=== PATIENT | male | born 1955 | race Caucasian/White ===

== ENCOUNTER → 2016-12-17 | Outpatient (CLI) | payer MEDICARE, MEDICAID ==
[~2016-12-17] MED LIST: AML5T PO; CARI-277 PO; CARI350T21; CYANOCOBALAMIN (B-12) 1000 MCG/1 ML VIAL IM ONE; CYANOCOBALAMIN (B-12) 1000 MCG/1 ML VIAL ONE; DOCU-55; FINA1TAB10 OR; FURO20TA3 PO; GAB300C PO; GABA800T97; INSUINJ37 SUBCUT; LEVEMIR SC; LIS10T PO; LISI10TA6; MAGN250T8; MYCO500T PO; NOR10T PO; NORVASC; OME20GT; OMEP20CA5 PO; POTA12PO2; PROGRAF; SULF400T11; TAMS0.4C36 PO; TEMA15CA PO; ZOLP10TA6
[2016-12-17 09:00] VITALS: BP 127/80
== END | disposition home or self-care (01) ==
LOC: CHF HDHVI 08:44
PROVIDERS: ATTEND Internal Medicine Cardiovascular Disease
DX: I11.0 Hypertensive heart disease with heart failure (principal); E11.9 Type 2 diabetes mellitus without complications; D64.9 Anemia, unspecified; Z94.1 Heart transplant status
CPT/HCPCS: 93701; 96372; G0463; J3420

== ENCOUNTER → 2016-12-20 | Outpatient (CLI) | payer MEDICARE, MEDICAID ==
[~2016-12-20] MED LIST changes: -CYANOCOBALAMIN (B-12) 1000 MCG/1 ML VIAL IM ONE; -CYANOCOBALAMIN (B-12) 1000 MCG/1 ML VIAL ONE
[2016-12-20 13:00] VITALS: BP 126/85
[2016-12-20 15:56] LABS: Basophils # (auto) 0 uL; Basophils % (auto) 0.3 % (0.0-2.0); DEFINITIVE VIEW TRANSMISSION; Eosinophils # (auto) 0.1 uL; Eosinophils % (auto) 1.6 % (0.0-7.0); Hematocrit 37.3 % (41.0-53.0); Hemoglobin 11.9 g/dL (13.5-17.5); Lymphocytes # (auto) 1.1 uL; Mean Corpuscular Hgb Conc. 31.9 g/dL (32.0-36.0); Mean Corpuscular Volume 84.5 fL (80.0-100.0); Mean Platelet Volume 8.7 fL (7.4-10.4); Monocytes # (auto) 0.4 uL; Monocytes % (auto) 6.6 % (0.0-12.0); Neutrophils % (auto) 75.5 % (37.0-80.0); Platelet Count (auto) 311 10^3/uL (140-450); Red Cell Distribution Width 13.4 % (11.6-16.0); White Blood Cell 6.6 10^3/uL (4.4-10.8)
[2016-12-20 16:15] LABS: BUN/Creatinine Ratio 16.7; Calcium 9.5 mg/dL (8.5-10.1); Magnesium 2.2 mg/dL (1.6-2.6); Potassium 4.1 mmol/L (3.5-5.1)
== END | disposition home or self-care (01) ==
LOC: CHF HDHVI 12:06
PROVIDERS: ATTEND Internal Medicine Cardiovascular Disease
DX: I10 Essential (primary) hypertension (principal); E83.40 Disorders of magnesium metabolism, unspecified; D64.9 Anemia, unspecified
CPT/HCPCS: 36415; 80048; 83735; 85025; G0463

== ENCOUNTER → 2017-01-09 | Outpatient (CLI) | payer MEDICARE, MEDICAID ==
[~2017-01-09] MED LIST changes: +CYANOCOBALAMIN (B-12) 1000 MCG/1 ML VIAL IM ONE; +CYANOCOBALAMIN (B-12) 1000 MCG/1 ML VIAL ONE; +FUROSEMIDE 100 MG/10ML VIAL IV ONE; +FUROSEMIDE 40 MG/4 ML VIAL ONE; +POTASSIUM CHL 20 Meq TABLET PO ONE
[2017-01-09 12:00] VITALS: BP 148/88
[2017-01-09 12:31] VITALS: BP 124/82
[2017-01-09 16:31] LABS: Basophils # (auto) 0 uL; Basophils % (auto) 0.5 % (0.0-2.0); DEFINITIVE VIEW TRANSMISSION; Eosinophils # (auto) 0.2 uL; Eosinophils % (auto) 2.9 % (0.0-7.0); Hematocrit 38.8 % (41.0-53.0); Hemoglobin 11.7 g/dL (13.5-17.5); Lymphocytes # (auto) 1.3 uL; Lymphocytes % (auto) 20.6 % (10.0-50.0); Mean Corpuscular Hgb Conc. 30.1 g/dL (32.0-36.0); Mean Corpuscular Volume 86.3 fL (80.0-100.0); Mean Platelet Volume 9.1 fL (7.4-10.4); Monocytes # (auto) 0.5 uL; Monocytes % (auto) 8.2 % (0.0-12.0); Neutrophils # (auto) 4.3 uL; Neutrophils % (auto) 67.8 % (37.0-80.0); Platelet Count (auto) 209 10^3/uL (140-450); Red Cell Distribution Width 14.5 % (11.6-16.0); White Blood Cell 6.3 10^3/uL (4.4-10.8)
[2017-01-09 16:42] LABS: Calcium 9.3 mg/dL (8.5-10.1); Magnesium 2.1 mg/dL (1.6-2.6); Potassium 3.9 mmol/L (3.5-5.1)
[2017-01-09 23:01] LABS: Anisocytosis Slight; Platelet Estimate Adequate
[2017-01-09 23:02] LABS: Hypochromia Slight
[2017-01-09 23:03] LABS: Stomatocytes Few
== END | disposition home or self-care (01) ==
LOC: CHF HDHVI 11:58
PROVIDERS: ATTEND Internal Medicine Cardiovascular Disease
DX: I10 Essential (primary) hypertension (principal); E83.40 Disorders of magnesium metabolism, unspecified; D64.9 Anemia, unspecified
CPT/HCPCS: 36415; 80048; 83735; 85025; 94620; 96365; 96372; G0463

== ENCOUNTER → 2017-01-20 | Outpatient (CLI) | payer MEDICARE, MEDICAID ==
[~2017-01-20] MED LIST changes: -FUROSEMIDE 100 MG/10ML VIAL IV ONE; -FUROSEMIDE 40 MG/4 ML VIAL ONE; -POTASSIUM CHL 20 Meq TABLET PO ONE
[2017-01-20 10:15] VITALS: BP 108/77
== END | disposition home or self-care (01) ==
LOC: CHF HDHVI 09:52
PROVIDERS: ATTEND Internal Medicine Cardiovascular Disease
DX: I11.0 Hypertensive heart disease with heart failure (principal); I51.7 Cardiomegaly; J90 Pleural effusion, not elsewhere classified; E11.9 Type 2 diabetes mellitus without complications; K44.9 Diaphragmatic hernia without obstruction or gangrene; M47.9 Spondylosis, unspecified; I70.0 Atherosclerosis of aorta; M54.5 Low back pain; Z94.1 Heart transplant status; D64.9 Anemia, unspecified
CPT/HCPCS: 71250; 96372; G0463; J3420

== ENCOUNTER → 2017-01-27 | Outpatient (CLI) | payer MEDICARE, MEDICAID ==
[~2017-01-27] MED LIST changes: -CYANOCOBALAMIN (B-12) 1000 MCG/1 ML VIAL IM ONE; -CYANOCOBALAMIN (B-12) 1000 MCG/1 ML VIAL ONE
[2017-01-27 13:35] VITALS: BP 121/76
[2017-01-27 14:00] VITALS: BP 123/88
== END | disposition home or self-care (01) ==
LOC: Rad HDHVI 13:36
PROVIDERS: ATTEND Internal Medicine Cardiovascular Disease
DX: Z01.818 Encounter for other preprocedural examination (principal); I11.0 Hypertensive heart disease with heart failure; I50.9 Heart failure, unspecified; I25.10 Atherosclerotic heart disease of native coronary artery without angina pectoris; K22.2 Esophageal obstruction; J90 Pleural effusion, not elsewhere classified; Z95.1 Presence of aortocoronary bypass graft; R91.8 Other nonspecific abnormal finding of lung field
CPT/HCPCS: 71020; 93005; G0463

== ENCOUNTER → 2017-02-13 | Outpatient (CLI) | payer MEDICARE, MEDICAID ==
[~2017-02-13] MED LIST changes: +CYANOCOBALAMIN (B-12) 1000 MCG/1 ML VIAL IM ONE; +CYANOCOBALAMIN (B-12) 1000 MCG/1 ML VIAL ONE
[2017-02-13 13:25] VITALS: BP 140/81
== END | disposition home or self-care (01) ==
LOC: CHF HDHVI 11:51
PROVIDERS: ATTEND Internal Medicine Cardiovascular Disease
DX: I11.0 Hypertensive heart disease with heart failure (principal); I50.9 Heart failure, unspecified; I25.10 Atherosclerotic heart disease of native coronary artery without angina pectoris; J90 Pleural effusion, not elsewhere classified; E78.5 Hyperlipidemia, unspecified; D64.9 Anemia, unspecified
CPT/HCPCS: 93701; 96372; G0463; J3420

== ENCOUNTER → 2017-02-19 | Outpatient (CLI) | payer MEDICARE, MEDICAID ==
[2017-02-19 12:20] VITALS: BP 121/77
[2017-02-19 13:00] VITALS: BP 113/68
[2017-02-19 16:37] LABS: Basophils # (auto) 0 uL; Basophils % (auto) 0.2 % (0.0-2.0); Eosinophils # (auto) 0.1 uL; Eosinophils % (auto) 0.8 % (0.0-7.0); Hematocrit 36.9 % (41.0-53.0); Hemoglobin 11.9 g/dL (13.5-17.5); Lymphocytes # (auto) 0.9 uL; Lymphocytes % (auto) 13.1 % (10.0-50.0); Mean Corpuscular Hemoglobin 27.6 pg (28.0-32.0); Mean Corpuscular Hgb Conc. 32.3 g/dL (32.0-36.0); Mean Corpuscular Volume 85.5 fL (80.0-100.0); Mean Platelet Volume 9.6 fL (7.4-10.4); Monocytes # (auto) 0.3 uL; Neutrophils # (auto) 5.5 uL; Neutrophils % (auto) 80.9 % (37.0-80.0); Platelet Count (auto) 297 10^3/uL (140-450); Red Cell Distribution Width 14.6 % (11.6-16.0); White Blood Cell 6.9 10^3/uL (4.4-10.8)
[2017-02-19 17:00] LABS: Potassium 3.8 mmol/L (3.5-5.1)
== END | disposition home or self-care (01) ==
LOC: CHF HDHVI 12:23
PROVIDERS: ATTEND Internal Medicine Cardiovascular Disease
DX: I10 Essential (primary) hypertension (principal); I50.9 Heart failure, unspecified; D64.9 Anemia, unspecified; R94.4 Abnormal results of kidney function studies; E11.9 Type 2 diabetes mellitus without complications
CPT/HCPCS: 36415; 82565; 83036; 84132; 84520; 85025; 96372; G0463

== ENCOUNTER → 2017-03-21 | Outpatient (CLI) | payer MEDICARE, MEDICAID ==
[2017-03-21 13:00] VITALS: BP 110/74
[2017-03-21 16:49] LABS: Basophils # (auto) 0 uL; Basophils % (auto) 0.4 % (0.0-2.0); Eosinophils # (auto) 0.2 uL; Eosinophils % (auto) 2.4 % (0.0-7.0); Hematocrit 37.8 % (41.0-53.0); Hemoglobin 12.1 g/dL (13.5-17.5); Lymphocytes # (auto) 1.2 uL; Lymphocytes % (auto) 16.7 % (10.0-50.0); Mean Corpuscular Hemoglobin 27.5 pg (28.0-32.0); Mean Platelet Volume 9.8 fL (7.4-10.4); Monocytes # (auto) 0.4 uL; Monocytes % (auto) 6.3 % (0.0-12.0); Neutrophils # (auto) 5.2 uL; Neutrophils % (auto) 74.2 % (37.0-80.0); Platelet Count (auto) 244 10^3/uL (140-450); Red Cell Distribution Width 14.5 % (11.6-16.0)
[2017-03-21 17:13] LABS: Albumin 3.4 g/dL (3.4-5.0); BUN/Creatinine Ratio 12.3; Bilirubin, Total 0.3 mg/dL (0.2-1.0); Calcium 9.5 mg/dL (8.5-10.1); Potassium 3.9 mmol/L (3.5-5.1); Total Protein 6.6 g/dL (6.4-8.2)
== END | disposition home or self-care (01) ==
LOC: CHF HDHVI 12:59
PROVIDERS: ATTEND Internal Medicine Cardiovascular Disease
DX: D64.9 Anemia, unspecified (principal); I10 Essential (primary) hypertension; E11.9 Type 2 diabetes mellitus without complications
CPT/HCPCS: 36415; 80053; 83036; 85025; 96372; G0463

== ENCOUNTER → 2017-04-02 | Outpatient (CLI) | payer MEDICARE, MEDICAID ==
[2017-04-02 14:30] VITALS: BP 114/81
[2017-04-02 16:38] LABS: BUN/Creatinine Ratio 12.1; Basophils # (auto) 0 uL; Basophils % (auto) 0.3 % (0.0-2.0); Calcium 9.7 mg/dL (8.5-10.1); Eosinophils # (auto) 0.1 uL; Eosinophils % (auto) 1.1 % (0.0-7.0); Hematocrit 36.9 % (41.0-53.0); Hemoglobin 11.9 g/dL (13.5-17.5); Lymphocytes % (auto) 15.8 % (10.0-50.0); Magnesium 2.4 mg/dL (1.6-2.6); Mean Corpuscular Hemoglobin 27.4 pg (28.0-32.0); Mean Corpuscular Hgb Conc. 32.3 g/dL (32.0-36.0); Mean Platelet Volume 9.6 fL (7.4-10.4); Monocytes # (auto) 0.4 uL; Monocytes % (auto) 5.5 % (0.0-12.0); Neutrophils % (auto) 77.3 % (37.0-80.0); Platelet Count (auto) 234 10^3/uL (140-450); Potassium 4.1 mmol/L (3.5-5.1); Red Cell Distribution Width 13.7 % (11.6-16.0); White Blood Cell 6.5 10^3/uL (4.4-10.8)
== END | disposition home or self-care (01) ==
LOC: CHF HDHVI 13:09
PROVIDERS: ATTEND Internal Medicine Cardiovascular Disease
DX: I10 Essential (primary) hypertension (principal); D64.9 Anemia, unspecified; E83.42 Hypomagnesemia
CPT/HCPCS: 36415; 80048; 83735; 85025; 93701; 96372; G0463

== ENCOUNTER → 2017-04-15 | Outpatient (CLI) | payer MEDICARE, MEDICAID ==
[~2017-04-15] MED LIST changes: -CYANOCOBALAMIN (B-12) 1000 MCG/1 ML VIAL IM ONE; -CYANOCOBALAMIN (B-12) 1000 MCG/1 ML VIAL ONE
== END | disposition home or self-care (01) ==
LOC: Rad HDHVI 14:56
PROVIDERS: ATTEND Internal Medicine Cardiovascular Disease
DX: I11.0 Hypertensive heart disease with heart failure (principal); I50.9 Heart failure, unspecified; I42.0 Dilated cardiomyopathy; J90 Pleural effusion, not elsewhere classified; E78.5 Hyperlipidemia, unspecified; M79.601 Pain in right arm; R91.8 Other nonspecific abnormal finding of lung field
CPT/HCPCS: 71020; 93306

== ENCOUNTER → 2017-04-22 | Outpatient (CLI) | payer MEDICARE, MEDICAID ==
[~2017-04-22] MED LIST changes: +CYANOCOBALAMIN (B-12) 1000 MCG/1 ML VIAL IM ONE; +CYANOCOBALAMIN (B-12) 1000 MCG/1 ML VIAL ONE; +KETOROLAC TROMETH 60MG/2ML VIAL IM ONE
[2017-04-22 11:15] VITALS: BP 109/72
[2017-04-22 12:15] VITALS: BP 107/73
[2017-04-22 16:32] LABS: Basophils # (auto) 0 uL; Basophils % (auto) 0.2 % (0.0-2.0); Eosinophils # (auto) 0.1 uL; Eosinophils % (auto) 1.1 % (0.0-7.0); Hematocrit 37.7 % (41.0-53.0); Hemoglobin 12.4 g/dL (13.5-17.5); Lymphocytes % (auto) 13.1 % (10.0-50.0); Mean Corpuscular Hemoglobin 28.3 pg (28.0-32.0); Mean Corpuscular Volume 85.8 fL (80.0-100.0); Mean Platelet Volume 9.2 fL (7.4-10.4); Monocytes # (auto) 0.6 uL; Monocytes % (auto) 8.1 % (0.0-12.0); Neutrophils # (auto) 5.9 uL; Neutrophils % (auto) 77.5 % (37.0-80.0); Platelet Count (auto) 239 10^3/uL (140-450); Red Cell Distribution Width 14.3 % (11.6-16.0); White Blood Cell 7.6 10^3/uL (4.4-10.8)
[2017-04-22 17:28] LABS: Potassium 4.2 mmol/L (3.5-5.1)
== END | disposition home or self-care (01) ==
LOC: CHF HDHVI 11:25
PROVIDERS: ATTEND Internal Medicine Cardiovascular Disease
DX: R94.4 Abnormal results of kidney function studies (principal); E87.6 Hypokalemia; D64.9 Anemia, unspecified
CPT/HCPCS: 36415; 82565; 84132; 84520; 85025; 93701; 96372; G0463; J1885

== ENCOUNTER → 2017-05-01 | Outpatient (CLI) | payer MEDICARE, MEDICAID ==
[~2017-05-01] MED LIST changes: +CARI-316; -CARI350T21; -GAB300C PO; +GABA-497 PO; -KETOROLAC TROMETH 60MG/2ML VIAL IM ONE; -OMEP20CA5 PO; +OMEP20CA74 PO
[2017-05-01 14:40] VITALS: BP 109/67
== END | disposition home or self-care (01) ==
LOC: CHF HDHVI 13:23
PROVIDERS: ATTEND Internal Medicine Cardiovascular Disease
DX: I50.9 Heart failure, unspecified (principal); D64.9 Anemia, unspecified; J44.9 Chronic obstructive pulmonary disease, unspecified; E11.9 Type 2 diabetes mellitus without complications; Z79.899 Other long term (current) drug therapy
CPT/HCPCS: 93701; 94620; 96372; G0463; J3420

== ENCOUNTER → 2017-05-07 | Outpatient (CLI) | payer MEDICARE, MEDICAID ==
[2017-05-07 14:15] VITALS: BP 107/83
[2017-05-07 14:35] VITALS: BP 115/86
== END | disposition home or self-care (01) ==
LOC: CHF HDHVI 14:21
PROVIDERS: ATTEND Internal Medicine Cardiovascular Disease
DX: I50.9 Heart failure, unspecified (principal); I48.91 Unspecified atrial fibrillation; R53.83 Other fatigue; Z95.810 Presence of automatic (implantable) cardiac defibrillator; Z94.1 Heart transplant status
CPT/HCPCS: 96372; G0463; J3420

== ENCOUNTER → 2017-05-13 | Outpatient (CLI) | payer MEDICARE, MEDICAID ==
[~2017-05-13] MED LIST changes: +ADENOSINE 90 MG/30 ML INJ IV ONE; +ADENOSINE 99 MG in GIVE UN-DILUTED 0 ML IV ONE; -CYANOCOBALAMIN (B-12) 1000 MCG/1 ML VIAL IM ONE; -CYANOCOBALAMIN (B-12) 1000 MCG/1 ML VIAL ONE
== END | disposition home or self-care (01) ==
LOC: Rad HDHVI 13:38
PROVIDERS: ATTEND Internal Medicine Cardiovascular Disease
DX: I10 Essential (primary) hypertension (principal); I48.91 Unspecified atrial fibrillation; E78.5 Hyperlipidemia, unspecified; E11.9 Type 2 diabetes mellitus without complications; Z82.49 Family history of ischemic heart disease and other diseases of the circulatory system; Z94.1 Heart transplant status; Z95.1 Presence of aortocoronary bypass graft
CPT/HCPCS: 78452; 93005; 96374; 96375; A9500; J0153

== ENCOUNTER → 2017-05-19 | Outpatient (CLI) | payer MEDICARE, MEDICAID ==
[~2017-05-19] MED LIST changes: -ADENOSINE 90 MG/30 ML INJ IV ONE; -ADENOSINE 99 MG in GIVE UN-DILUTED 0 ML IV ONE
== END | disposition home or self-care (01) ==
LOC: Rad HDHVI 14:54
PROVIDERS: ATTEND Internal Medicine Cardiovascular Disease
DX: M48.02 Spinal stenosis, cervical region (principal); M47.892 Other spondylosis, cervical region
CPT/HCPCS: 72125

== ENCOUNTER → 2017-05-23 | Outpatient (CLI) | payer MEDICARE, MEDICAID ==
[~2017-05-23] MED LIST changes: +ALBU2TAB4 IN; +CALCTAB25 PO; +CARV6.25 PO; +CHOL1TAB42 PO; +CYANOCOBALAMIN (B-12) 1000 MCG/1 ML VIAL IM ONE; +CYANOCOBALAMIN (B-12) 1000 MCG/1 ML VIAL ONE; +FERR325T77 PO; -FINA1TAB10 OR; +FINA1TAB10 PO; +FLUT250M2 INH; +GABA250S2 PO; +INSLISPI SC; +INSU1.2I SC; +LOPE2CAP PO; +LORA-622 PO; -MAGN250T8; +MAGN250T8 PO; +MULTCAP45 PO; -OME20GT; +OME20GT PO; -POTA12PO2; +POTA12PO2 PO; +PRE5T PO; +TACR1CAP19 PO; +TACR5CAP15 PO; +TRIA0.25 PO
[2017-05-23 12:00] VITALS: BP 98/63
[2017-05-23 12:30] VITALS: BP 109/65
== END | disposition home or self-care (01) ==
LOC: CHF HDHVI 12:00
PROVIDERS: ATTEND Internal Medicine Cardiovascular Disease
DX: I50.9 Heart failure, unspecified (principal); R53.83 Other fatigue; E87.70 Fluid overload, unspecified
CPT/HCPCS: 96372; G0463; J3420

== ENCOUNTER 2017-06-02 02:59 | Inpatient (IN) | payer MEDICARE, MEDICAID ==
[~2017-06-02] VITALS: Ht 175.3 cm; Wt 119.5 kg
[~2017-06-02 02:59] MED LIST changes: -ALBU2TAB4 IN; -CALCTAB25 PO; -CARV6.25 PO; -CHOL1TAB42 PO; -CYANOCOBALAMIN (B-12) 1000 MCG/1 ML VIAL IM ONE; -CYANOCOBALAMIN (B-12) 1000 MCG/1 ML VIAL ONE; -FERR325T77 PO; -FLUT250M2 INH; -GABA250S2 PO; -INSLISPI SC; -INSU1.2I SC; -LOPE2CAP PO; -LORA-622 PO; -MULTCAP45 PO; -PRE5T PO; -TACR1CAP19 PO; -TACR5CAP15 PO; -TRIA0.25 PO
[2017-06-02] MEDS ORDERED: HYDROmorphone HCL 2 MG/ML VL IV ONE ×3 (03:30→10:30)
[2017-06-02] MEDS ORDERED: ONDANSETRON HCL 4 MG/2 ML VIAL IV ONE ×2 (03:30→10:30)
[2017-06-02 03:36] LABS: Basophils # (auto) 0 uL; Basophils % (auto) 0.1 % (0.0-2.0); CONDITION Y; Eosinophils # (auto) 0.1 uL; Eosinophils % (auto) 0.7 % (0.0-7.0); Hematocrit 36.6 % (41.0-53.0); Hemoglobin 12.1 g/dL (13.5-17.5); Lymphocytes % (auto) 9.6 % (10.0-50.0); Mean Corpuscular Hemoglobin 27.6 pg (28.0-32.0); Mean Corpuscular Hgb Conc. 33.2 g/dL (32.0-36.0); Mean Corpuscular Volume 83.3 fL (80.0-100.0); Mean Platelet Volume 8.4 fL (7.4-10.4); Monocytes # (auto) 0.7 uL; Neutrophils # (auto) 8.5 uL; Neutrophils % (auto) 82.6 % (37.0-80.0); Platelet Count (auto) 229 10^3/uL (140-450); Red Cell Distribution Width 13.6 % (11.6-16.0); White Blood Cell 10.2 10^3/uL (4.4-10.8)
[2017-06-02 03:55] LABS: Albumin 3.7 g/dL (3.4-5.0); BUN/Creatinine Ratio 24.2; Calcium 9.4 mg/dL (8.5-10.1); Potassium 4.9 mmol/L (3.5-5.1)
[2017-06-02 03:57] LABS: Bilirubin, Total 0.2 mg/dL (0.2-1.0)
[2017-06-02 05:06] LABS: Amylase 107 U/L (25-115); Magnesium 2.7 mg/dL (1.6-2.6)
[2017-06-02 05:11] LABS: INR 0.98 (0.9-1.15); Partial Thromboplastin Time 27.1 sec (22.64-33.71); Prothrombin Time 10.7 sec (9.37-12.3)
[2017-06-02] MEDS ORDERED: PANTOPRAZOLE SODIUM 40 MG/10 ML VIAL IV ONE ×2 (08:15→14:30)
[2017-06-02 08:46] LABS: Urine Bilirubin Negative (Negative); Urine Blood Negative /uL (Negative); Urine Color Yellow (Yellow); Urine Glucose Normal (Normal); Urine Ketone Negative (Negative); Urine Mucus FEW (None Seen); Urine Nitrite Negative (Negative); Urine RBC <1 /hpf (0 - 3); Urine Squamous Epithelial Cell FEW /hpf (<5); Urine Urobilinogen Normal (Negative)
[2017-06-02 09:02] LABS: B-Type Natriuretic Peptide 35.74 pg/mL (0-100)
[2017-06-02 09:06] LABS: Temperature: 24.1 C (20.0-25.0)
[2017-06-02] MEDS ORDERED: ENOXAPARIN SOD 100 MG/1 ML SYRINGE SC ONE (09:15)
[2017-06-02] MEDS ORDERED: NITROGLYCERIN 0.4 MG SL TAB SL PRN (14:30)
[2017-06-02] MEDS ORDERED: DEXTROSE (50%) 50ML SYRG IV PRN (14:30)
[2017-06-02] MEDS: SODIUM CHLORIDE 0.9% 1,000 ML IV SCH (14:30)
[2017-06-02] MEDS ORDERED: predniSONE 5 MG TAB PO ONE (15:00)
[2017-06-02] MEDS: CARVEDILOL 3.125 MG TAB PO SCH ×2 (15:00→22:22)
[2017-06-02] MEDS: TAMSULOSIN HYDROCHLORIDE 0.4 MG CAP PO SCH (18:16)
[2017-06-02] MEDS: ACCU-CHEK COMFORT CURVE STRIP VI SCH (18:16)
[2017-06-02] MEDS: TACROLIMUS 1 MG CAP PO SCH (18:16)
[2017-06-02] MEDS: InsuLIN REG 1unit/0.01ml Soln (100units/ml) SC SCH (18:21)
[2017-06-02] MEDS: MORPHINE SULF INJ 2 MG/ML SYRINGE 1ML IV PRN ×4 (20:35→23:51)
[2017-06-02] MEDS: MYCOPHENOLATE 500 MG TAB PO SCH (22:18)
[2017-06-02] MEDS: GABAPENTIN 100 MG CAP PO SCH (22:22)
[2017-06-03] VITALS (7 sets, daily range): BP systolic 122–140; BP diastolic 76–95
[2017-06-03] MEDS: InsuLIN REG 1unit/0.01ml Soln (100units/ml) SC SCH ×4 (01:01→18:27)
[2017-06-03] MEDS: ACCU-CHEK COMFORT CURVE STRIP VI SCH ×5 (01:01→23:54)
[2017-06-03] MEDS: MORPHINE SULF INJ 2 MG/ML SYRINGE 1ML IV PRN ×6 (01:03→23:57)
[2017-06-03] MEDS ORDERED: TEMAZEPAM 15 MG CAP PO ONE (01:15)
[2017-06-03] MEDS: SODIUM CHLORIDE 0.9% 1,000 ML IV SCH ×2 (04:00→17:33)
[2017-06-03] MEDS ORDERED: GABA250S2 PO (04:34)
[2017-06-03] MEDS ORDERED: TRIA0.25 PO (04:42)
[2017-06-03] MEDS ORDERED: ALBU2TAB4 IN (04:45)
[2017-06-03] MEDS ORDERED: CALCTAB25 PO (04:46)
[2017-06-03] MEDS ORDERED: CHOL1TAB42 PO (04:49)
[2017-06-03] MEDS ORDERED: CARV6.25 PO (04:51)
[2017-06-03] MEDS ORDERED: FERR325T77 PO (04:53)
[2017-06-03] MEDS ORDERED: INSLISPI SC (04:55)
[2017-06-03] MEDS ORDERED: FLUT250M2 INH (04:55)
[2017-06-03] MEDS ORDERED: LOPE2CAP PO (04:57)
[2017-06-03] MEDS ORDERED: LORA-622 PO (04:58)
[2017-06-03] MEDS ORDERED: MULTCAP45 PO (04:58)
[2017-06-03] MEDS ORDERED: PRE5T PO (04:59)
[2017-06-03] MEDS ORDERED: TACR1CAP19 PO (05:02)
[2017-06-03] MEDS ORDERED: TACR5CAP15 PO (05:02)
[2017-06-03] MEDS ORDERED: INSU1.2I SC (05:03)
[2017-06-03] MEDS: TACROLIMUS 1 MG CAP PO SCH ×2 (06:12→18:36)
[2017-06-03 06:43] LABS: Basophils # (auto) 0 uL; Basophils % (auto) 0.1 % (0.0-2.0); CONDITION Y; Eosinophils # (auto) 0 uL; Eosinophils % (auto) 0.3 % (0.0-7.0); Hemoglobin 12.1 g/dL (13.5-17.5); Lymphocytes # (auto) 0.9 uL; Lymphocytes % (auto) 16.4 % (10.0-50.0); Mean Corpuscular Hgb Conc. 34.4 g/dL (32.0-36.0); Mean Corpuscular Volume 84.1 fL (80.0-100.0); Mean Platelet Volume 8.8 fL (7.4-10.4); Monocytes # (auto) 0.8 uL; Monocytes % (auto) 14.9 % (0.0-12.0); Neutrophils # (auto) 3.7 uL; Neutrophils % (auto) 68.3 % (37.0-80.0); Platelet Count (auto) 188 10^3/uL (140-450); Red Cell Distribution Width 13.6 % (11.6-16.0); White Blood Cell 5.5 10^3/uL (4.4-10.8)
[2017-06-03 07:11] LABS: Albumin 3.3 g/dL (3.4-5.0); Bilirubin, Total 0.4 mg/dL (0.2-1.0); Calcium 9.5 mg/dL (8.5-10.1); Potassium 5.1 mmol/L (3.5-5.1); Total Protein 6.5 g/dL (6.4-8.2)
[2017-06-03] MEDS: PANTOPRAZOLE SODIUM 40 MG/10 ML VIAL IV SCH (09:55)
[2017-06-03] MEDS: FINASTERIDE 5 MG TAB PO SCH (09:55)
[2017-06-03] MEDS: GABAPENTIN 100 MG CAP PO SCH (09:55)
[2017-06-03] MEDS: predniSONE 5 MG TAB PO SCH (09:56)
[2017-06-03] MEDS: CARVEDILOL 3.125 MG TAB PO SCH ×2 (09:56→21:57)
[2017-06-03] MEDS: MYCOPHENOLATE 500 MG TAB PO SCH ×2 (10:13→21:55)
[2017-06-03 14:51] LABS: B-Type Natriuretic Peptide 38.2 pg/mL (0-100)
[2017-06-03 15:01] LABS: Temperature: 23.3 C (20.0-25.0)
[2017-06-03 15:21] LABS: BUN/Creatinine Ratio 26.9; Calcium 9.2 mg/dL (8.5-10.1); Potassium 5.4 mmol/L (3.5-5.1)
[2017-06-03] MEDS: TAMSULOSIN HYDROCHLORIDE 0.4 MG CAP PO SCH (18:36)
[2017-06-03] MEDS ORDERED: FUROSEMIDE 40 MG/4 ML VIAL IV ONE (19:00)
[2017-06-04] VITALS (7 sets, daily range): BP systolic 124–146; BP diastolic 78–97
[2017-06-04] MEDS: SODIUM CHLORIDE 0.9% 1,000 ML IV SCH (05:22)
[2017-06-04] MEDS: MORPHINE SULF INJ 2 MG/ML SYRINGE 1ML IV PRN ×5 (05:23→20:07)
[2017-06-04] MEDS: TACROLIMUS 1 MG CAP PO SCH ×2 (06:11→17:35)
[2017-06-04] MEDS: ACCU-CHEK COMFORT CURVE STRIP VI SCH ×4 (06:11→23:40)
[2017-06-04] MEDS: InsuLIN REG 1unit/0.01ml Soln (100units/ml) SC SCH ×5 (06:12→23:41)
[2017-06-04 07:56] LABS: BUN/Creatinine Ratio 27.1; Calcium 9.1 mg/dL (8.5-10.1); Potassium 4.9 mmol/L (3.5-5.1)
[2017-06-04 08:25] LABS: Basophils # (auto) 0 uL; Basophils % (auto) 0.1 % (0.0-2.0); CONDITION Y; Eosinophils # (auto) 0.1 uL; Hematocrit 31.1 % (41.0-53.0); Hemoglobin 10.2 g/dL (13.5-17.5); Lymphocytes # (auto) 1.1 uL; Lymphocytes % (auto) 21.6 % (10.0-50.0); Mean Corpuscular Hemoglobin 27.7 pg (28.0-32.0); Mean Corpuscular Hgb Conc. 32.8 g/dL (32.0-36.0); Mean Corpuscular Volume 84.4 fL (80.0-100.0); Mean Platelet Volume 8.9 fL (7.4-10.4); Monocytes # (auto) 0.6 uL; Monocytes % (auto) 11.9 % (0.0-12.0); Neutrophils # (auto) 3.5 uL; Neutrophils % (auto) 65.4 % (37.0-80.0); Platelet Count (auto) 182 10^3/uL (140-450); Red Cell Distribution Width 13.8 % (11.6-16.0); White Blood Cell 5.3 10^3/uL (4.4-10.8)
[2017-06-04] MEDS: predniSONE 5 MG TAB PO SCH (09:28)
[2017-06-04] MEDS: FINASTERIDE 5 MG TAB PO SCH (09:28)
[2017-06-04] MEDS: PANTOPRAZOLE SODIUM 40 MG/10 ML VIAL IV SCH (09:28)
[2017-06-04] MEDS: CARVEDILOL 3.125 MG TAB PO SCH ×2 (09:31→22:42)
[2017-06-04] MEDS: MYCOPHENOLATE 500 MG TAB PO SCH ×2 (09:40→22:41)
[2017-06-04] MEDS: TAMSULOSIN HYDROCHLORIDE 0.4 MG CAP PO SCH (17:35)
[2017-06-04] MEDS ORDERED: EPOETIN ALFA 4,000 UNIT/ML VL SC ONE (19:00)
[2017-06-04] MEDS ORDERED: HYDROcodone-ACET 10/325MG TAB PO PRN (19:00)
[2017-06-04] MEDS: ONDANSETRON HCL 4 MG/2 ML VIAL IV PRN (20:08)
[2017-06-04] MEDS: HYDROcodone-ACET 5/325MG TAB PO PRN (22:41)
[2017-06-05] MEDS: MORPHINE SULF INJ 2 MG/ML SYRINGE 1ML IV PRN ×6 (00:24→20:10)
[2017-06-05] MEDS: SODIUM CHLORIDE 0.9% 1,000 ML IV SCH ×3 (00:30→21:55)
[2017-06-05 05:00] VITALS: BP 139/97
[2017-06-05 06:07] LABS: Basophils # (auto) 0 uL; Basophils % (auto) 0.2 % (0.0-2.0); CONDITION Y; Eosinophils # (auto) 0.1 uL; Eosinophils % (auto) 1.8 % (0.0-7.0); Hematocrit 32.6 % (41.0-53.0); Hemoglobin 10.9 g/dL (13.5-17.5); Lymphocytes # (auto) 1.3 uL; Mean Corpuscular Hemoglobin 28.6 pg (28.0-32.0); Mean Corpuscular Hgb Conc. 33.5 g/dL (32.0-36.0); Mean Corpuscular Volume 85.3 fL (80.0-100.0); Mean Platelet Volume 8.4 fL (7.4-10.4); Monocytes # (auto) 0.7 uL; Monocytes % (auto) 10.3 % (0.0-12.0); Neutrophils # (auto) 4.4 uL; Neutrophils % (auto) 67.7 % (37.0-80.0); Platelet Count (auto) 204 10^3/uL (140-450); Red Cell Distribution Width 13.6 % (11.6-16.0); White Blood Cell 6.5 10^3/uL (4.4-10.8)
[2017-06-05] MEDS: ACCU-CHEK COMFORT CURVE STRIP VI SCH ×4 (06:13→23:27)
[2017-06-05] MEDS: InsuLIN REG 1unit/0.01ml Soln (100units/ml) SC SCH ×4 (06:13→23:27)
[2017-06-05] MEDS: TACROLIMUS 1 MG CAP PO SCH ×2 (06:26→17:04)
[2017-06-05 06:31] LABS: BUN/Creatinine Ratio 21.9; Calcium 9.7 mg/dL (8.5-10.1); Potassium 4.9 mmol/L (3.5-5.1)
[2017-06-05 08:00] VITALS: BP 124/77
[2017-06-05] MEDS: predniSONE 5 MG TAB PO SCH (10:24)
[2017-06-05] MEDS: FINASTERIDE 5 MG TAB PO SCH (10:24)
[2017-06-05] MEDS: CARVEDILOL 3.125 MG TAB PO SCH ×2 (10:24→21:54)
[2017-06-05] MEDS: MYCOPHENOLATE 500 MG TAB PO SCH ×2 (10:24→21:53)
[2017-06-05] MEDS: PANTOPRAZOLE SODIUM 40 MG/10 ML VIAL IV SCH (10:24)
[2017-06-05 14:47] VITALS: BP 142/96
[2017-06-05] MEDS: TAMSULOSIN HYDROCHLORIDE 0.4 MG CAP PO SCH (17:04)
[2017-06-05 20:00] VITALS: BP 139/96
[2017-06-05] MEDS: ONDANSETRON HCL 4 MG/2 ML VIAL IV PRN (21:52)
[2017-06-05 22:00] VITALS: BP 139/96
[2017-06-06] MEDS: MORPHINE SULF INJ 2 MG/ML SYRINGE 1ML IV PRN ×2 (02:21→09:49)
[2017-06-06 05:00] VITALS: BP 121/103
[2017-06-06] MEDS: HYDROcodone-ACET 5/325MG TAB PO PRN (05:28)
[2017-06-06] MEDS: InsuLIN REG 1unit/0.01ml Soln (100units/ml) SC SCH ×2 (06:00→12:11)
[2017-06-06] MEDS: ACCU-CHEK COMFORT CURVE STRIP VI SCH ×2 (06:13→11:47)
[2017-06-06] MEDS: TACROLIMUS 1 MG CAP PO SCH (06:39)
[2017-06-06] MEDS: SODIUM CHLORIDE 0.9% 1,000 ML IV SCH (06:41)
[2017-06-06 08:00] VITALS: BP 121/103
[2017-06-06 09:00] VITALS: BP 130/69
[2017-06-06] MEDS: MYCOPHENOLATE 500 MG TAB PO SCH (09:48)
[2017-06-06] MEDS: CARVEDILOL 3.125 MG TAB PO SCH (09:48)
[2017-06-06] MEDS: predniSONE 5 MG TAB PO SCH (09:48)
[2017-06-06] MEDS: FINASTERIDE 5 MG TAB PO SCH (09:49)
[2017-06-06] MEDS: PANTOPRAZOLE SODIUM 40 MG/10 ML VIAL IV SCH (09:49)
[2017-06-06 12:52] VITALS: BP 125/78
[2017-06-07] MEDS ORDERED: PANTOPRAZOLE 40 MG TAB PO SCH (10:00)
== END 2017-06-06 13:35 | disposition home or self-care (01) | DRG 871 ==
LOC: ER 02:59 → EDBD 02:59 → TELE 03:00 → TELE-WESTW 23:45
PROVIDERS: ADMIT Internal Medicine; ATTEND Internal Medicine Cardiovascular Disease
DX: A41.9 Sepsis, unspecified organism (principal); K85.90 Acute pancreatitis without necrosis or infection, unspecified; G93.41 Metabolic encephalopathy; N17.9 Acute kidney failure, unspecified; Z94.1 Heart transplant status; E87.4 Mixed disorder of acid-base balance; D64.9 Anemia, unspecified; I12.9 Hypertensive chronic kidney disease with stage 1 through stage 4 chronic kidney disease, or unspecified chronic kidney disease; N18.3 Chronic kidney disease, stage 3 (moderate); N40.0 Benign prostatic hyperplasia without lower urinary tract symptoms; E11.22 Type 2 diabetes mellitus with diabetic chronic kidney disease; E86.1 Hypovolemia; F03.90 Unspecified dementia, unspecified severity, without behavioral disturbance, psychotic disturbance, mood disturbance, and anxiety; J44.9 Chronic obstructive pulmonary disease, unspecified; K44.9 Diaphragmatic hernia without obstruction or gangrene; K57.30 Diverticulosis of large intestine without perforation or abscess without bleeding; K80.20 Calculus of gallbladder without cholecystitis without obstruction; D89.9 Disorder involving the immune mechanism, unspecified; K86.89 Other specified diseases of pancreas; W18.39XA Other fall on same level, initial encounter; G89.29 Other chronic pain; E11.65 Type 2 diabetes mellitus with hyperglycemia; R29.6 Repeated falls; Z77.090 Contact with and (suspected) exposure to asbestos; Z82.49 Family history of ischemic heart disease and other diseases of the circulatory system; Z83.3 Family history of diabetes mellitus; Z99.81 Dependence on supplemental oxygen; Z88.6 Allergy status to analgesic agent; Z88.5 Allergy status to narcotic agent; Z88.0 Allergy status to penicillin; Z88.8 Allergy status to other drugs, medicaments and biological substances; Y93.89 Activity, other specified; Y92.89 Other specified places as the place of occurrence of the external cause; Y99.8 Other external cause status
CPT/HCPCS: 36415; 51702; 70450; 71020; 73090; 73110; 74176; 76700; 78582; 80048; 80053; 80197; 81001; 82150; 82962; 83036; 83605; 83690; 83735; 83880; 84484; 85025; 85379; 85610; 85730; 93005; 93970; 96372; 96374; 96375; 96376; 99291; C9113; J1815; J2405; J7507; J7517

== ENCOUNTER → 2017-06-20 | Outpatient (CLI) | payer MEDICARE, MEDICAID ==
[~2017-06-20] MED LIST changes: +ALBU2TAB4 IN; +CALCTAB25 PO; +CARV6.25 PO; +CHOL1TAB42 PO; +CYANOCOBALAMIN (B-12) 1000 MCG/1 ML VIAL IM ONE; +CYANOCOBALAMIN (B-12) 1000 MCG/1 ML VIAL ONE; +FERR325T77 PO; +FLUT250M2 INH; -GABA-497 PO; +GABA250S2 PO; -GABA800T97; +INSLISPI SC; +INSU1.2I SC; -INSUINJ37 SUBCUT; -LEVEMIR SC; -LISI10TA6; +LOPE2CAP PO; +LORA-622 PO; +MULTCAP45 PO; -OMEP20CA74 PO; +PRE5T PO; +TACR1CAP19 PO; +TACR5CAP15 PO; -TEMA15CA PO; +TRIA0.25 PO
[2017-06-20 13:45] VITALS: BP 95/47
[2017-06-20 15:00] VITALS: BP 100/50
[2017-06-20 16:19] LABS: Basophils # (auto) 0 uL; Basophils % (auto) 0.3 % (0.0-2.0); CONDITION Y; Eosinophils # (auto) 0 uL; Eosinophils % (auto) 0.2 % (0.0-7.0); Hemoglobin 11.4 g/dL (13.5-17.5); Lymphocytes # (auto) 1.3 uL; Lymphocytes % (auto) 16.2 % (10.0-50.0); Mean Corpuscular Hemoglobin 27.7 pg (28.0-32.0); Mean Corpuscular Hgb Conc. 32.5 g/dL (32.0-36.0); Mean Corpuscular Volume 85.2 fL (80.0-100.0); Mean Platelet Volume 9.2 fL (7.4-10.4); Monocytes # (auto) 0.5 uL; Monocytes % (auto) 6.8 % (0.0-12.0); Neutrophils % (auto) 76.5 % (37.0-80.0); Platelet Count (auto) 396 10^3/uL (140-450); Red Cell Distribution Width 13.5 % (11.6-16.0); White Blood Cell 7.9 10^3/uL (4.4-10.8)
[2017-06-20 16:32] LABS: BUN/Creatinine Ratio 12.6; Calcium 9.4 mg/dL (8.5-10.1); Potassium 5.3 mmol/L (3.5-5.1)
== END | disposition home or self-care (01) ==
LOC: CHF HDHVI 13:42
PROVIDERS: ATTEND Internal Medicine Cardiovascular Disease
DX: I11.0 Hypertensive heart disease with heart failure (principal); I50.9 Heart failure, unspecified; D64.9 Anemia, unspecified; I48.91 Unspecified atrial fibrillation; E11.9 Type 2 diabetes mellitus without complications; R53.83 Other fatigue; Z94.1 Heart transplant status
CPT/HCPCS: 36415; 80048; 85025; 96372; G0463; J3420

== ENCOUNTER → 2017-06-27 | Outpatient (CLI) | payer MEDICARE, MEDICAID ==
[~2017-06-27] MED LIST changes: -CYANOCOBALAMIN (B-12) 1000 MCG/1 ML VIAL IM ONE; -CYANOCOBALAMIN (B-12) 1000 MCG/1 ML VIAL ONE
[2017-06-27 10:30] VITALS: BP 133/83
[2017-06-27 11:45] VITALS: BP 116/87
== END | disposition home or self-care (01) ==
LOC: CHF HDHVI 11:04
PROVIDERS: ATTEND Internal Medicine Cardiovascular Disease
DX: I11.0 Hypertensive heart disease with heart failure (principal); I50.9 Heart failure, unspecified; G89.29 Other chronic pain
CPT/HCPCS: G0463

== ENCOUNTER → 2017-08-06 | Outpatient (CLI) | payer MEDICARE, MEDICAID ==
[~2017-08-06] MED LIST changes: +MUPIROCIN 2% OINT 22GM ONE; +MUPIROCIN 2% OINT 22GM TOP ONE
[2017-08-06 09:35] VITALS: BP 114/83
[2017-08-06 09:38] VITALS: BP 114/83
== END | disposition home or self-care (01) ==
LOC: CHF HDHVI 09:14
PROVIDERS: ATTEND Internal Medicine Cardiovascular Disease
DX: I50.9 Heart failure, unspecified (principal); G89.29 Other chronic pain
CPT/HCPCS: G0463

== ENCOUNTER → 2017-08-21 | Outpatient (CLI) | payer MEDICARE, MEDICAID ==
[~2017-08-21] MED LIST changes: +CYANOCOBALAMIN (B-12) 1000 MCG/1 ML VIAL IM ONE; +CYANOCOBALAMIN (B-12) 1000 MCG/1 ML VIAL ONE; -MUPIROCIN 2% OINT 22GM ONE; -MUPIROCIN 2% OINT 22GM TOP ONE
[2017-08-21 12:00] VITALS: BP 150/107
[2017-08-21 13:00] VITALS: BP 141/96
[2017-08-21 16:01] LABS: Basophils # (auto) 0 uL; Basophils % (auto) 0.2 % (0.0-2.0); Eosinophils # (auto) 0 uL; Eosinophils % (auto) 0.7 % (0.0-7.0); Hematocrit 41.6 % (41.0-53.0); Hemoglobin 13.4 g/dL (13.5-17.5); Lymphocytes # (auto) 0.9 uL; Lymphocytes % (auto) 17.2 % (10.0-50.0); Mean Corpuscular Hemoglobin 27.4 pg (28.0-32.0); Mean Corpuscular Hgb Conc. 32.1 g/dL (32.0-36.0); Mean Corpuscular Volume 85.2 fL (80.0-100.0); Monocytes # (auto) 0.3 uL; Monocytes % (auto) 5.6 % (0.0-12.0); Neutrophils # (auto) 4.1 uL; Neutrophils % (auto) 76.3 % (37.0-80.0); Nucleated Red Blood Cells % 0.2 %; Platelet Count (auto) 186 10^3/uL (140-450); Red Cell Distribution Width 15.2 % (11.8-14.3); White Blood Cell 5.4 10^3/uL (4.4-10.8)
[2017-08-21 16:22] LABS: BUN/Creatinine Ratio 13.9; Calcium 9.6 mg/dL (8.5-10.1); Magnesium 2.7 mg/dL (1.6-2.6); Potassium 4.4 mmol/L (3.5-5.1)
== END | disposition home or self-care (01) ==
LOC: CHF HDHVI 11:49
PROVIDERS: ATTEND Internal Medicine Cardiovascular Disease
DX: I10 Essential (primary) hypertension (principal); E11.9 Type 2 diabetes mellitus without complications; E83.42 Hypomagnesemia; D51.9 Vitamin B12 deficiency anemia, unspecified; D64.9 Anemia, unspecified; I25.10 Atherosclerotic heart disease of native coronary artery without angina pectoris
CPT/HCPCS: 36415; 80048; 82607; 83036; 83735; 85025; 96372; G0463; J3420

== ENCOUNTER → 2017-09-08 | Outpatient (CLI) | payer MEDICARE, MEDICAID ==
[~2017-09-08] MED LIST changes: +MUPIROCIN 2% OINT 22GM ONE; +MUPIROCIN 2% OINT 22GM TOP ONE
[2017-09-08 10:45] VITALS: BP 95/61
[2017-09-08 12:10] VITALS: BP 101/61
[2017-09-08 17:11] LABS: Potassium 4.4 mmol/L (3.5-5.1)
[2017-09-08 17:12] LABS: Basophils # (auto) 0 uL; Basophils % (auto) 0.2 % (0.0-2.0); Eosinophils # (auto) 0.1 uL; Eosinophils % (auto) 0.7 % (0.0-7.0); Hematocrit 40.1 % (41.0-53.0); Lymphocytes # (auto) 1.2 uL; Lymphocytes % (auto) 15.4 % (10.0-50.0); Mean Corpuscular Hemoglobin 27.3 pg (28.0-32.0); Mean Corpuscular Hgb Conc. 32.3 g/dL (32.0-36.0); Mean Corpuscular Volume 84.5 fL (80.0-100.0); Mean Platelet Volume 9.1 fL (6.9-10.8); Monocytes # (auto) 0.5 uL; Monocytes % (auto) 6.7 % (0.0-12.0); Neutrophils # (auto) 5.8 uL; Nucleated Red Blood Cells % 0.1 %; Platelet Count (auto) 169 10^3/uL (140-450); Red Cell Distribution Width 14.7 % (11.8-14.3); White Blood Cell 7.5 10^3/uL (4.4-10.8)
== END | disposition home or self-care (01) ==
LOC: CHF HDHVI 10:09
PROVIDERS: ATTEND Internal Medicine Cardiovascular Disease
DX: I25.10 Atherosclerotic heart disease of native coronary artery without angina pectoris (principal); E87.6 Hypokalemia; R94.4 Abnormal results of kidney function studies; D64.9 Anemia, unspecified; G89.29 Other chronic pain; R53.83 Other fatigue; Z94.1 Heart transplant status
CPT/HCPCS: 36415; 82565; 84132; 84520; 85025; 93701; 96372; G0463; J3420

== ENCOUNTER → 2017-09-19 | Outpatient (CLI) | payer MEDICARE, MEDICAID ==
[~2017-09-19] VITALS: Ht 30.5 cm; Wt 114.8 kg
[~2017-09-19] MED LIST changes: -MUPIROCIN 2% OINT 22GM ONE; -MUPIROCIN 2% OINT 22GM TOP ONE
[2017-09-19 12:31] VITALS: BP 121/80
== END | disposition home or self-care (01) ==
LOC: CHF HDHVI 11:42
PROVIDERS: ATTEND Internal Medicine Cardiovascular Disease
DX: E87.6 Hypokalemia (principal); R94.4 Abnormal results of kidney function studies; E55.9 Vitamin D deficiency, unspecified
CPT/HCPCS: 36415; 82306; 82565; 84132; 84520; 96372; G0463; J3420

== ENCOUNTER → 2017-10-22 | Outpatient (CLI) | payer MEDICARE, MEDICAID ==
[~2017-10-22] VITALS: Ht 30.5 cm; Wt 0.5 kg
[~2017-10-22] MED LIST changes: -CYANOCOBALAMIN (B-12) 1000 MCG/1 ML VIAL IM ONE; +CYANOCOBALAMIN (B-12) 1000 MCG/1 ML VIAL SUBCUT ONE
[2017-10-22 12:00] VITALS: BP 139/91
[2017-10-22 13:15] VITALS: BP 124/78
[2017-10-22 16:05] LABS: Basophils # (auto) 0 uL; Basophils % (auto) 0.3 % (0.0-2.0); Eosinophils # (auto) 0.1 uL; Eosinophils % (auto) 1.1 % (0.0-7.0); Hematocrit 40.1 % (41.0-53.0); Lymphocytes % (auto) 13.5 % (10.0-50.0); Mean Corpuscular Hemoglobin 27.2 pg (28.0-32.0); Mean Corpuscular Hgb Conc. 32.4 g/dL (32.0-36.0); Mean Corpuscular Volume 83.9 fL (80.0-100.0); Mean Platelet Volume 9.1 fL (6.9-10.8); Monocytes # (auto) 0.5 uL; Monocytes % (auto) 7.1 % (0.0-12.0); Neutrophils # (auto) 5.7 uL; Nucleated Red Blood Cells % 0.1 %; Platelet Count (auto) 176 10^3/uL (140-450); Red Cell Distribution Width 14.9 % (11.8-14.3); White Blood Cell 7.3 10^3/uL (4.4-10.8)
[2017-10-22 16:12] LABS: BUN/Creatinine Ratio 15.5; Calcium 9.8 mg/dL (8.5-10.1)
== END | disposition home or self-care (01) ==
LOC: CHF HDHVI 12:07
PROVIDERS: ATTEND Internal Medicine Cardiovascular Disease
DX: D64.9 Anemia, unspecified (principal); Z94.1 Heart transplant status; R53.83 Other fatigue; G89.29 Other chronic pain
CPT/HCPCS: 36415; 80048; 80197; 85025; 96372; G0463; J3420

== ENCOUNTER 2017-11-25 01:14 | Inpatient (IN) | payer MEDICARE, MEDICAID ==
[~2017-11-25] VITALS: Ht 193 cm; Wt 82.0 kg
[~2017-11-25 01:14] MED LIST changes: -CYANOCOBALAMIN (B-12) 1000 MCG/1 ML VIAL ONE; -CYANOCOBALAMIN (B-12) 1000 MCG/1 ML VIAL SUBCUT ONE
[2017-11-25 02:23] LABS: Basophils # (auto) 0 uL; Basophils % (auto) 0.4 % (0.0-2.0); Eosinophils # (auto) 0 uL; Eosinophils % (auto) 0.6 % (0.0-7.0); Hematocrit 39.8 % (41.0-53.0); Hemoglobin 13.1 g/dL (13.5-17.5); Lymphocytes # (auto) 0.5 uL; Lymphocytes % (auto) 7.8 % (10.0-50.0); Mean Corpuscular Hemoglobin 27.1 pg (28.0-32.0); Mean Corpuscular Hgb Conc. 32.8 g/dL (32.0-36.0); Mean Corpuscular Volume 82.5 fL (80.0-100.0); Monocytes # (auto) 0.5 uL; Monocytes % (auto) 7.7 % (0.0-12.0); Neutrophils # (auto) 5.8 uL; Neutrophils % (auto) 83.5 % (37.0-80.0); Nucleated Red Blood Cells % 0.1 %; Platelet Count (auto) 169 10^3/uL (140-450); Red Blood Cells 4.82 10^6/uL (4.5-5.90); Red Cell Distribution Width 14.6 % (11.8-14.3)
[2017-11-25] MEDS ORDERED: methylPREDNISolone SOD SUCC 125 MG/2 ML VL IV ONE (02:30)
[2017-11-25 02:34] LABS: Alanine Aminotransferase 13 U/L (16-61); Albumin 3.5 g/dL (3.4-5.0); Amylase 44 U/L (25-115); Anion Gap 8 (5-15); Aspartate Aminotransferase 11 U/L (15-37); BUN/Creatinine Ratio 16.1; Blood Urea Nitrogen 26 mg/dL (7-18); Calcium 8.5 mg/dL (8.5-10.1); Carbon Dioxide 32 mmol/L (21-32); Chloride 99 mmol/L (98-107); GFR African American 56 mL/min; GFR Non-African American 46 mL/min; Glucose 139 mg/dL (74-106); Lipase 147 U/L (73-393); Magnesium 1.5 mg/dL (1.6-2.6); Potassium 3.1 mmol/L (3.5-5.1); Sodium 139 mmol/L (136-145)
[2017-11-25 02:46] LABS: Alkaline Phosphatase 69 U/L (45-117); Bilirubin, Total 0.3 mg/dL (0.2-1.0); Total Protein 6.7 g/dL (6.4-8.2)
[2017-11-25] MEDS ORDERED: POTASSIUM CHL 20 Meq TABLET PO ONE (03:00)
[2017-11-25] MEDS ORDERED: ALBUTEROL SULF 2.5 MG/0.5ML(0.5%) NEB SOLN NEB ONE (03:30)
[2017-11-25] MEDS ORDERED: FUROSEMIDE 20 MG/2 ML VIAL IV ONE (03:30)
[2017-11-25] MEDS ORDERED: IPRATROPIUM BROM 0.5 MG/2.5ML INH SOL NEB ONE (03:30)
[2017-11-25 03:42] LABS: Urine WBC None Seen /hpf (0 - 3)
[2017-11-25 04:08] LABS: Urine Bacteria NONE SEEN /hpf (None Seen); Urine Blood Negative /uL (Negative); Urine Hyaline Cast FEW /lpf (0 - 2); Urine Specific Gravity 1.015 (1.001-1.035)
[2017-11-25] MEDS ORDERED: MORPHINE SULFATE 4 MG/ML SYR/VIAL IV PRN (11:15)
[2017-11-25] MEDS ORDERED: NITROGLYCERIN 0.4 MG SL TAB SL PRN (11:15)
[2017-11-25] MEDS ORDERED: LORATADINE 10 MG TAB PO ONE (11:30)
[2017-11-25] MEDS ORDERED: predniSONE 5 MG TAB PO ONE (11:30)
[2017-11-25] MEDS ORDERED: MAGNESIUM OXIDE 400 MG TAB PO ONE (11:30)
[2017-11-25] MEDS ORDERED: ENOXAPARIN SOD 40 MG/0.4 ML SYRINGE SC ONE (11:30)
[2017-11-25] MEDS ORDERED: PANTOPRAZOLE 40 MG/10 ML VIAL IV ONE (11:30)
[2017-11-25] MEDS ORDERED: CARVEDILOL 3.125 MG TAB PO ONE (11:30)
[2017-11-25] MEDS ORDERED: FINASTERIDE 5 MG TAB PO ONE (11:30)
[2017-11-25] MEDS ORDERED: HYDROXYCHLOROQUINE SULFATE 200 MG TAB PO ONE (11:30)
[2017-11-25] MEDS ORDERED: HCTZ 25 MG TAB PO ONE (11:30)
[2017-11-25] MEDS ORDERED: FLUCONAZOLE 100 MG TAB PO ONE (11:30)
[2017-11-25] MEDS ORDERED: MAGNESIUM SULFATE 1GM/100ML 100 ML IV ONE (11:30)
[2017-11-25] MEDS ORDERED: ENOXAPARIN SOD 100 MG/1 ML SYRINGE SC ONE (11:45)
[2017-11-25] MEDS: ALBUTEROL SULF 2.5 MG/0.5ML(0.5%) NEB SOLN NEB SCH ×3 (12:57→22:10)
[2017-11-25] MEDS: BUDESONIDE (INHALATION) 0.5 MG/2 ML NEB NEB SCH (18:20)
[2017-11-25] MEDS: FERROUS SULFATE 325 MG TAB PO SCH (18:24)
[2017-11-25] MEDS: TAMSULOSIN HYDROCHLORIDE 0.4 MG CAP PO SCH (18:24)
[2017-11-25] MEDS: PREGABALIN CAPSULE 75 MG CAP PO SCH (22:02)
[2017-11-25] MEDS: MAGNESIUM OXIDE 400 MG TAB PO SCH (22:02)
[2017-11-25] MEDS: ENOXAPARIN SOD 100 MG/1 ML SYRINGE SC SCH (22:02)
[2017-11-25] MEDS: HYDROcodone-ACET 5/325MG TAB PO PRN (22:02)
[2017-11-25] MEDS: TACROLIMUS 1 MG CAP PO SCH (22:02)
[2017-11-25] MEDS: CARVEDILOL 3.125 MG TAB PO SCH (22:03)
[2017-11-25] MEDS: CARISOPRODOL 350 MG TAB PO SCH (22:03)
[2017-11-25] MEDS: MYCOPHENOLATE 500 MG TAB PO SCH (22:03)
[2017-11-25 23:46] VITALS: BP 119/87
[2017-11-26] MEDS: ALBUTEROL SULF 2.5 MG/0.5ML(0.5%) NEB SOLN NEB SCH ×6 (02:25→22:43)
[2017-11-26 05:37] LABS: Basophils # (auto) 0 uL; Basophils % (auto) 0.1 % (0.0-2.0); Eosinophils # (auto) 0 uL; Hematocrit 36.9 % (41.0-53.0); Hemoglobin 12.2 g/dL (13.5-17.5); Lymphocytes # (auto) 0.7 uL; Mean Corpuscular Hemoglobin 27.3 pg (28.0-32.0); Mean Corpuscular Hgb Conc. 33.1 g/dL (32.0-36.0); Mean Corpuscular Volume 82.3 fL (80.0-100.0); Monocytes # (auto) 0.8 uL; Monocytes % (auto) 12.5 % (0.0-12.0); Neutrophils # (auto) 4.6 uL; Neutrophils % (auto) 76.4 % (37.0-80.0); Platelet Count (auto) 145 10^3/uL (140-450); Red Blood Cells 4.49 10^6/uL (4.5-5.90); Red Cell Distribution Width 14.8 % (11.8-14.3); White Blood Cell 6.1 10^3/uL (4.4-10.8)
[2017-11-26 06:01] LABS: Albumin 3.2 g/dL (3.4-5.0); BUN/Creatinine Ratio 21.1; Calcium 9.1 mg/dL (8.5-10.1); Potassium 3.6 mmol/L (3.5-5.1)
[2017-11-26 06:12] LABS: Bilirubin, Total 0.2 mg/dL (0.2-1.0); Total Protein 6.2 g/dL (6.4-8.2)
[2017-11-26] MEDS: FERROUS SULFATE 325 MG TAB PO SCH ×2 (08:33→17:09)
[2017-11-26] MEDS ORDERED: MAGNESIUM OXIDE 400 MG TAB PO SCH (10:00)
[2017-11-26] MEDS ORDERED: ENOXAPARIN SOD 40 MG/0.4 ML SYRINGE SC SCH (10:00)
[2017-11-26] MEDS: BUDESONIDE (INHALATION) 0.5 MG/2 ML NEB NEB SCH ×2 (10:05→19:18)
[2017-11-26] MEDS: PANTOPRAZOLE 40 MG/10 ML VIAL IV SCH (10:57)
[2017-11-26] MEDS: LORATADINE 10 MG TAB PO SCH (10:57)
[2017-11-26] MEDS: CARVEDILOL 3.125 MG TAB PO SCH ×2 (10:57→15:19)
[2017-11-26] MEDS: predniSONE 5 MG TAB PO SCH (10:57)
[2017-11-26] MEDS: HCTZ 25 MG TAB PO SCH (10:58)
[2017-11-26] MEDS: HYDROXYCHLOROQUINE SULFATE 200 MG TAB PO SCH (10:58)
[2017-11-26] MEDS: FLUCONAZOLE 100 MG TAB PO SCH (10:58)
[2017-11-26] MEDS: PREGABALIN CAPSULE 75 MG CAP PO SCH ×2 (10:58→21:13)
[2017-11-26] MEDS: MAGNESIUM OXIDE 400 MG TAB PO SCH ×2 (10:58→21:13)
[2017-11-26] MEDS: FINASTERIDE 5 MG TAB PO SCH (10:59)
[2017-11-26] MEDS: ENOXAPARIN SOD 100 MG/1 ML SYRINGE SC SCH (10:59)
[2017-11-26] MEDS: CARISOPRODOL 350 MG TAB PO SCH ×2 (10:59→21:13)
[2017-11-26] MEDS: MYCOPHENOLATE 500 MG TAB PO SCH ×2 (11:17→21:12)
[2017-11-26] MEDS: TACROLIMUS 1 MG CAP PO SCH ×2 (11:18→21:12)
[2017-11-26] MEDS ORDERED: ENOXAPARIN SOD 40 MG/0.4 ML SYRINGE SC ONE (15:15)
[2017-11-26] MEDS ORDERED: TEMA15CA PO (16:27)
[2017-11-26] MEDS ORDERED: PREG50CA PO (16:27)
[2017-11-26 16:31] VITALS: BP 113/80
[2017-11-26 17:00] VITALS: BP 113/80
[2017-11-26] MEDS: TAMSULOSIN HYDROCHLORIDE 0.4 MG CAP PO SCH (17:09)
[2017-11-26 22:00] VITALS: BP 119/75
[2017-11-26] MEDS: HYDROcodone-ACET 5/325MG TAB PO PRN (23:20)
[2017-11-27] VITALS (7 sets, daily range): BP systolic 95–124; BP diastolic 52–83
[2017-11-27] MEDS: CARVEDILOL 3.125 MG TAB PO SCH ×2 (00:06→21:35)
[2017-11-27] MEDS: ALBUTEROL SULF 2.5 MG/0.5ML(0.5%) NEB SOLN NEB SCH ×6 (02:40→21:28)
[2017-11-27] MEDS: BUDESONIDE (INHALATION) 0.5 MG/2 ML NEB NEB SCH ×2 (05:53→17:15)
[2017-11-27 07:42] LABS: Basophils # (auto) 0 uL; Basophils % (auto) 0.2 % (0.0-2.0); Eosinophils # (auto) 0 uL; Eosinophils % (auto) 0.3 % (0.0-7.0); Hematocrit 36.3 % (41.0-53.0); Hemoglobin 11.8 g/dL (13.5-17.5); Lymphocytes % (auto) 22.1 % (10.0-50.0); Mean Corpuscular Hgb Conc. 32.6 g/dL (32.0-36.0); Mean Corpuscular Volume 82.9 fL (80.0-100.0); Monocytes # (auto) 0.4 uL; Monocytes % (auto) 9.4 % (0.0-12.0); Nucleated Red Blood Cells % 0.1 %; Platelet Count (auto) 127 10^3/uL (140-450); Red Blood Cells 4.37 10^6/uL (4.5-5.90); Red Cell Distribution Width 14.6 % (11.8-14.3); White Blood Cell 4.4 10^3/uL (4.4-10.8)
[2017-11-27 08:34] LABS: BUN/Creatinine Ratio 20.7; Calcium 8.5 mg/dL (8.5-10.1); Magnesium 1.9 mg/dL (1.6-2.6); Potassium 3.4 mmol/L (3.5-5.1)
[2017-11-27] MEDS: PANTOPRAZOLE 40 MG/10 ML VIAL IV SCH (09:39)
[2017-11-27] MEDS: FERROUS SULFATE 325 MG TAB PO SCH ×2 (09:39→18:02)
[2017-11-27] MEDS: FLUCONAZOLE 100 MG TAB PO SCH (09:40)
[2017-11-27] MEDS: MYCOPHENOLATE 500 MG TAB PO SCH ×2 (09:40→21:24)
[2017-11-27] MEDS: LORATADINE 10 MG TAB PO SCH (09:40)
[2017-11-27] MEDS: PREGABALIN CAPSULE 75 MG CAP PO SCH ×2 (09:41→21:23)
[2017-11-27] MEDS: MAGNESIUM OXIDE 400 MG TAB PO SCH ×2 (09:41→21:23)
[2017-11-27] MEDS: predniSONE 5 MG TAB PO SCH (09:41)
[2017-11-27] MEDS: HYDROXYCHLOROQUINE SULFATE 200 MG TAB PO SCH (09:42)
[2017-11-27] MEDS: CARISOPRODOL 350 MG TAB PO SCH ×2 (09:42→21:24)
[2017-11-27] MEDS: ENOXAPARIN SOD 40 MG/0.4 ML SYRINGE SC SCH (09:42)
[2017-11-27] MEDS: FINASTERIDE 5 MG TAB PO SCH (09:42)
[2017-11-27] MEDS: HCTZ 25 MG TAB PO SCH (09:43)
[2017-11-27] MEDS: HYDROcodone-ACET 5/325MG TAB PO PRN ×2 (09:44→18:07)
[2017-11-27] MEDS: TACROLIMUS 1 MG CAP PO SCH ×2 (09:55→21:25)
[2017-11-27] MEDS: TAMSULOSIN HYDROCHLORIDE 0.4 MG CAP PO SCH (18:02)
[2017-11-27] MEDS: ZOLPIDEM TARTRATE 5 MG TAB PO PRN ×2 (21:24→23:56)
[2017-11-28] MEDS: ALBUTEROL SULF 2.5 MG/0.5ML(0.5%) NEB SOLN NEB SCH ×6 (02:31→22:11)
[2017-11-28 05:00] VITALS: BP 112/68
[2017-11-28] MEDS: FERROUS SULFATE 325 MG TAB PO SCH ×2 (08:46→17:59)
[2017-11-28] MEDS: HYDROcodone-ACET 5/325MG TAB PO PRN ×3 (08:47→21:23)
[2017-11-28 09:00] VITALS: BP 95/85
[2017-11-28] MEDS: BUDESONIDE (INHALATION) 0.5 MG/2 ML NEB NEB SCH ×2 (09:33→18:05)
[2017-11-28] MEDS: ENOXAPARIN SOD 40 MG/0.4 ML SYRINGE SC SCH (10:11)
[2017-11-28] MEDS: CARISOPRODOL 350 MG TAB PO SCH ×2 (10:11→21:26)
[2017-11-28] MEDS: PREGABALIN CAPSULE 75 MG CAP PO SCH ×2 (10:11→21:23)
[2017-11-28] MEDS: predniSONE 5 MG TAB PO SCH (10:11)
[2017-11-28] MEDS: FLUCONAZOLE 100 MG TAB PO SCH (10:12)
[2017-11-28] MEDS: LORATADINE 10 MG TAB PO SCH (10:12)
[2017-11-28] MEDS: OSELTAMIVIR 75 MG CAP PO SCH (10:12)
[2017-11-28] MEDS: FINASTERIDE 5 MG TAB PO SCH (10:12)
[2017-11-28] MEDS: MAGNESIUM OXIDE 400 MG TAB PO SCH ×2 (10:12→21:23)
[2017-11-28] MEDS: HYDROXYCHLOROQUINE SULFATE 200 MG TAB PO SCH (10:13)
[2017-11-28] MEDS: PANTOPRAZOLE 40 MG/10 ML VIAL IV SCH (10:14)
[2017-11-28] MEDS: MYCOPHENOLATE 500 MG TAB PO SCH ×2 (10:25→21:24)
[2017-11-28] MEDS: TACROLIMUS 1 MG CAP PO SCH ×2 (10:25→21:25)
[2017-11-28] MEDS: CARVEDILOL 3.125 MG TAB PO SCH ×2 (10:26→21:24)
[2017-11-28] MEDS: HCTZ 25 MG TAB PO SCH (10:27)
[2017-11-28 13:00] VITALS: BP 102/63
[2017-11-28] MEDS ORDERED: POTASSIUM CHL 20 Meq TABLET PO ONE (14:45)
[2017-11-28 17:00] VITALS: BP 115/72
[2017-11-28] MEDS ORDERED: TACR1CAP4 PO (17:06)
[2017-11-28] MEDS ORDERED: LISI2.5T47 PO (17:06)
[2017-11-28] MEDS: TAMSULOSIN HYDROCHLORIDE 0.4 MG CAP PO SCH (18:00)
[2017-11-28 22:00] VITALS: BP 126/86
[2017-11-28] MEDS: ZOLPIDEM TARTRATE 5 MG TAB PO PRN (23:42)
[2017-11-28 23:48] VITALS: BP 126/86
[2017-11-29] MEDS: ALBUTEROL SULF 2.5 MG/0.5ML(0.5%) NEB SOLN NEB SCH ×6 (02:13→22:35)
[2017-11-29 04:53] VITALS: BP 122/86
[2017-11-29] MEDS: HYDROcodone-ACET 5/325MG TAB PO PRN ×2 (08:27→14:18)
[2017-11-29] MEDS: FERROUS SULFATE 325 MG TAB PO SCH ×2 (08:32→18:18)
[2017-11-29 09:00] VITALS: BP 143/98
[2017-11-29] MEDS: ENOXAPARIN SOD 40 MG/0.4 ML SYRINGE SC SCH (10:24)
[2017-11-29] MEDS: PANTOPRAZOLE 40 MG/10 ML VIAL IV SCH (10:24)
[2017-11-29] MEDS: HYDROXYCHLOROQUINE SULFATE 200 MG TAB PO SCH (10:25)
[2017-11-29] MEDS: OSELTAMIVIR 75 MG CAP PO SCH (10:25)
[2017-11-29] MEDS: MAGNESIUM OXIDE 400 MG TAB PO SCH ×2 (10:25→21:58)
[2017-11-29] MEDS: CARISOPRODOL 350 MG TAB PO SCH ×2 (10:25→21:58)
[2017-11-29] MEDS: PREGABALIN CAPSULE 75 MG CAP PO SCH ×2 (10:27→21:58)
[2017-11-29] MEDS: predniSONE 5 MG TAB PO SCH (10:27)
[2017-11-29] MEDS: LORATADINE 10 MG TAB PO SCH (10:27)
[2017-11-29] MEDS: HCTZ 25 MG TAB PO SCH (10:27)
[2017-11-29] MEDS: CARVEDILOL 3.125 MG TAB PO SCH ×2 (10:27→21:58)
[2017-11-29] MEDS: FLUCONAZOLE 100 MG TAB PO SCH (10:28)
[2017-11-29] MEDS: FINASTERIDE 5 MG TAB PO SCH (10:31)
[2017-11-29] MEDS: TACROLIMUS 1 MG CAP PO SCH ×2 (10:31→21:59)
[2017-11-29] MEDS ORDERED: MYCOPHENOLATE 500 MG TAB PO ONE (10:45)
[2017-11-29 12:16] VITALS: BP 127/90
[2017-11-29] MEDS: BUDESONIDE (INHALATION) 0.5 MG/2 ML NEB NEB SCH ×2 (14:02→22:35)
[2017-11-29 17:58] VITALS: BP 127/100
[2017-11-29] MEDS: TAMSULOSIN HYDROCHLORIDE 0.4 MG CAP PO SCH (18:18)
[2017-11-29] MEDS: MYCOPHENOLATE 500 MG TAB PO SCH (21:59)
[2017-11-29] MEDS: ZOLPIDEM TARTRATE 5 MG TAB PO PRN (21:59)
[2017-11-29 22:00] VITALS: BP 140/84
[2017-11-30] MEDS: ALBUTEROL SULF 2.5 MG/0.5ML(0.5%) NEB SOLN NEB SCH ×5 (02:10→23:14)
[2017-11-30 05:00] VITALS: BP 138/71
[2017-11-30] MEDS: FERROUS SULFATE 325 MG TAB PO SCH ×2 (08:11→18:15)
[2017-11-30] MEDS: HYDROcodone-ACET 5/325MG TAB PO PRN ×3 (08:13→18:19)
[2017-11-30 09:00] VITALS: BP 136/82
[2017-11-30] MEDS: PANTOPRAZOLE 40 MG/10 ML VIAL IV SCH (10:23)
[2017-11-30] MEDS: HCTZ 25 MG TAB PO SCH (10:23)
[2017-11-30] MEDS: MAGNESIUM OXIDE 400 MG TAB PO SCH ×2 (10:24→22:00)
[2017-11-30] MEDS: TACROLIMUS 1 MG CAP PO SCH ×2 (10:24→21:59)
[2017-11-30] MEDS: OSELTAMIVIR 75 MG CAP PO SCH (10:24)
[2017-11-30] MEDS: ENOXAPARIN SOD 40 MG/0.4 ML SYRINGE SC SCH (10:24)
[2017-11-30] MEDS: MYCOPHENOLATE 500 MG TAB PO SCH ×2 (10:24→22:00)
[2017-11-30] MEDS: HYDROXYCHLOROQUINE SULFATE 200 MG TAB PO SCH (10:25)
[2017-11-30] MEDS: PREGABALIN CAPSULE 75 MG CAP PO SCH ×2 (10:25→21:59)
[2017-11-30] MEDS: FINASTERIDE 5 MG TAB PO SCH (10:25)
[2017-11-30] MEDS: FLUCONAZOLE 100 MG TAB PO SCH (10:25)
[2017-11-30] MEDS: CARISOPRODOL 350 MG TAB PO SCH ×2 (10:25→21:59)
[2017-11-30] MEDS: LORATADINE 10 MG TAB PO SCH (10:25)
[2017-11-30] MEDS: predniSONE 5 MG TAB PO SCH (10:25)
[2017-11-30] MEDS: CARVEDILOL 3.125 MG TAB PO SCH ×2 (10:26→22:00)
[2017-11-30] MEDS: BUDESONIDE (INHALATION) 0.5 MG/2 ML NEB NEB SCH ×2 (11:46→20:31)
[2017-11-30 13:00] VITALS: BP 133/87
[2017-11-30 17:00] VITALS: BP 116/75
[2017-11-30 17:24] LABS: Basophils # (auto) 0 uL; Basophils % (auto) 0.1 % (0.0-2.0); Eosinophils # (auto) 0 uL; Eosinophils % (auto) 0.4 % (0.0-7.0); Hematocrit 37.7 % (41.0-53.0); Hemoglobin 12.3 g/dL (13.5-17.5); Lymphocytes # (auto) 0.9 uL; Lymphocytes % (auto) 17.1 % (10.0-50.0); Mean Corpuscular Hemoglobin 27.2 pg (28.0-32.0); Mean Corpuscular Hgb Conc. 32.5 g/dL (32.0-36.0); Mean Corpuscular Volume 83.8 fL (80.0-100.0); Monocytes # (auto) 0.4 uL; Monocytes % (auto) 6.6 % (0.0-12.0); Neutrophils # (auto) 4.2 uL; Neutrophils % (auto) 75.8 % (37.0-80.0); Nucleated Red Blood Cells % 0.1 %; Platelet Count (auto) 134 10^3/uL (140-450); Red Cell Distribution Width 14.2 % (11.8-14.3); White Blood Cell 5.5 10^3/uL (4.4-10.8)
[2017-11-30 17:45] LABS: Albumin 3.4 g/dL (3.4-5.0); BUN/Creatinine Ratio 13.2; Bilirubin, Total 0.3 mg/dL (0.2-1.0); Calcium 8.8 mg/dL (8.5-10.1); Potassium 4.5 mmol/L (3.5-5.1); Total Protein 6.2 g/dL (6.4-8.2)
[2017-11-30] MEDS: TAMSULOSIN HYDROCHLORIDE 0.4 MG CAP PO SCH (18:15)
[2017-11-30] MEDS: ONDANSETRON HCL 4 MG/2 ML VIAL IV PRN (21:57)
[2017-11-30 22:26] VITALS: BP 105/70
[2017-11-30] MEDS: ZOLPIDEM TARTRATE 5 MG TAB PO PRN (23:30)
[2017-12-01] VITALS (7 sets, daily range): BP systolic 101–113; BP diastolic 64–77
[2017-12-01] MEDS: ALBUTEROL SULF 2.5 MG/0.5ML(0.5%) NEB SOLN NEB SCH ×6 (02:15→22:33)
[2017-12-01] MEDS: HYDROcodone-ACET 5/325MG TAB PO PRN ×3 (08:42→21:26)
[2017-12-01] MEDS: FERROUS SULFATE 325 MG TAB PO SCH ×2 (08:42→17:56)
[2017-12-01] MEDS: ONDANSETRON HCL 4 MG/2 ML VIAL IV PRN ×3 (08:43→18:43)
[2017-12-01] MEDS: PANTOPRAZOLE 40 MG/10 ML VIAL IV SCH (10:11)
[2017-12-01] MEDS: HCTZ 25 MG TAB PO SCH (10:12)
[2017-12-01] MEDS: PREGABALIN CAPSULE 75 MG CAP PO SCH ×2 (10:12→21:27)
[2017-12-01] MEDS: ENOXAPARIN SOD 40 MG/0.4 ML SYRINGE SC SCH (10:12)
[2017-12-01] MEDS: LORATADINE 10 MG TAB PO SCH (10:13)
[2017-12-01] MEDS: HYDROXYCHLOROQUINE SULFATE 200 MG TAB PO SCH (10:13)
[2017-12-01] MEDS: CARVEDILOL 3.125 MG TAB PO SCH ×2 (10:13→21:28)
[2017-12-01] MEDS: FINASTERIDE 5 MG TAB PO SCH (10:14)
[2017-12-01] MEDS: predniSONE 5 MG TAB PO SCH (10:14)
[2017-12-01] MEDS: CARISOPRODOL 350 MG TAB PO SCH ×2 (10:14→21:27)
[2017-12-01] MEDS: OSELTAMIVIR 75 MG CAP PO SCH (10:14)
[2017-12-01] MEDS: MAGNESIUM OXIDE 400 MG TAB PO SCH ×2 (10:14→21:27)
[2017-12-01] MEDS: MYCOPHENOLATE 500 MG TAB PO SCH ×2 (10:15→21:27)
[2017-12-01] MEDS: BUDESONIDE (INHALATION) 0.5 MG/2 ML NEB NEB SCH ×2 (10:23→22:33)
[2017-12-01] MEDS: TACROLIMUS 1 MG CAP PO SCH ×2 (11:49→21:27)
[2017-12-01] MEDS ORDERED: FUROSEMIDE 20 MG/2 ML VIAL IV ONE (14:15)
[2017-12-01] MEDS: TAMSULOSIN HYDROCHLORIDE 0.4 MG CAP PO SCH (17:56)
[2017-12-01] MEDS: ZOLPIDEM TARTRATE 5 MG TAB PO PRN (23:27)
[2017-12-02] MEDS: ALBUTEROL SULF 2.5 MG/0.5ML(0.5%) NEB SOLN NEB SCH ×7 (02:00→22:35)
[2017-12-02 04:40] VITALS: BP 120/78
[2017-12-02] MEDS: ONDANSETRON HCL 4 MG/2 ML VIAL IV PRN ×2 (08:25→14:46)
[2017-12-02] MEDS: HYDROcodone-ACET 5/325MG TAB PO PRN ×3 (08:25→22:27)
[2017-12-02] MEDS: FERROUS SULFATE 325 MG TAB PO SCH ×2 (08:25→18:12)
[2017-12-02 09:00] VITALS: BP 109/75
[2017-12-02] MEDS: BUDESONIDE (INHALATION) 0.5 MG/2 ML NEB NEB SCH ×3 (09:51→19:36)
[2017-12-02] MEDS: PANTOPRAZOLE 40 MG/10 ML VIAL IV SCH (09:55)
[2017-12-02] MEDS: ENOXAPARIN SOD 40 MG/0.4 ML SYRINGE SC SCH (09:55)
[2017-12-02] MEDS: TACROLIMUS 1 MG CAP PO SCH ×2 (09:55→22:24)
[2017-12-02] MEDS: HYDROXYCHLOROQUINE SULFATE 200 MG TAB PO SCH (09:56)
[2017-12-02] MEDS: MYCOPHENOLATE 500 MG TAB PO SCH ×2 (09:56→22:24)
[2017-12-02] MEDS: PREGABALIN CAPSULE 75 MG CAP PO SCH ×2 (09:56→22:24)
[2017-12-02] MEDS: predniSONE 5 MG TAB PO SCH (09:56)
[2017-12-02] MEDS: OSELTAMIVIR 75 MG CAP PO SCH (09:56)
[2017-12-02] MEDS: FINASTERIDE 5 MG TAB PO SCH (09:57)
[2017-12-02] MEDS: LORATADINE 10 MG TAB PO SCH (09:57)
[2017-12-02] MEDS: CARVEDILOL 3.125 MG TAB PO SCH ×2 (09:57→22:28)
[2017-12-02] MEDS: CARISOPRODOL 350 MG TAB PO SCH ×2 (09:57→22:25)
[2017-12-02] MEDS: MAGNESIUM OXIDE 400 MG TAB PO SCH ×2 (09:58→22:24)
[2017-12-02] MEDS: HCTZ 25 MG TAB PO SCH (09:58)
[2017-12-02 13:00] VITALS: BP 104/68
[2017-12-02 17:00] VITALS: BP 103/70
[2017-12-02] MEDS: TAMSULOSIN HYDROCHLORIDE 0.4 MG CAP PO SCH (18:12)
[2017-12-02] MEDS: ZOLPIDEM TARTRATE 5 MG TAB PO PRN (22:25)
[2017-12-02 22:36] VITALS: BP 104/72
[2017-12-03] MEDS: ALBUTEROL SULF 2.5 MG/0.5ML(0.5%) NEB SOLN NEB SCH ×6 (01:02→22:33)
[2017-12-03 04:20] VITALS: BP 103/75
[2017-12-03] MEDS: BUDESONIDE (INHALATION) 0.5 MG/2 ML NEB NEB SCH ×2 (06:35→22:33)
[2017-12-03] MEDS: HYDROcodone-ACET 5/325MG TAB PO PRN ×2 (07:01→13:36)
[2017-12-03 08:00] VITALS: BP 103/75
[2017-12-03 08:41] VITALS: BP 127/76
[2017-12-03] MEDS: ONDANSETRON HCL 4 MG/2 ML VIAL IV PRN ×3 (09:27→19:50)
[2017-12-03] MEDS: PANTOPRAZOLE 40 MG/10 ML VIAL IV SCH (09:30)
[2017-12-03] MEDS: ENOXAPARIN SOD 40 MG/0.4 ML SYRINGE SC SCH (09:31)
[2017-12-03] MEDS: LORATADINE 10 MG TAB PO SCH (09:31)
[2017-12-03] MEDS: HYDROXYCHLOROQUINE SULFATE 200 MG TAB PO SCH (09:31)
[2017-12-03] MEDS: HCTZ 25 MG TAB PO SCH (09:32)
[2017-12-03] MEDS: PREGABALIN CAPSULE 75 MG CAP PO SCH ×2 (09:32→22:32)
[2017-12-03] MEDS: MAGNESIUM OXIDE 400 MG TAB PO SCH ×2 (09:32→22:32)
[2017-12-03] MEDS: predniSONE 5 MG TAB PO SCH (09:33)
[2017-12-03] MEDS: CARVEDILOL 3.125 MG TAB PO SCH ×3 (09:34→22:32)
[2017-12-03] MEDS: OSELTAMIVIR 75 MG CAP PO SCH (09:34)
[2017-12-03] MEDS: CARISOPRODOL 350 MG TAB PO SCH ×2 (09:34→22:32)
[2017-12-03] MEDS: FERROUS SULFATE 325 MG TAB PO SCH ×2 (09:34→19:09)
[2017-12-03] MEDS: FINASTERIDE 5 MG TAB PO SCH (09:34)
[2017-12-03 11:56] VITALS: BP 107/76
[2017-12-03] MEDS ORDERED: VANCOMYCIN PER PHARMACY 0 MG IV SCH (13:15)
[2017-12-03] MEDS: MYCOPHENOLATE 500 MG TAB PO SCH ×2 (13:37→22:31)
[2017-12-03] MEDS: TACROLIMUS 1 MG CAP PO SCH ×2 (13:38→22:32)
[2017-12-03] MEDS: methylPREDNISolone SOD SUCC 40 MG/ML VL IV SCH ×2 (13:53→22:31)
[2017-12-03 15:22] LABS: BUN/Creatinine Ratio 15.5; Potassium 5.3 mmol/L (3.5-5.1)
[2017-12-03] MEDS: VANCOMYCIN 1GM/250ML 250 ML IV SCH (15:22)
[2017-12-03 15:23] LABS: Albumin 3.4 g/dL (3.4-5.0); Bilirubin, Total 0.2 mg/dL (0.2-1.0); Calcium 8.6 mg/dL (8.5-10.1); Total Protein 6.6 g/dL (6.4-8.2)
[2017-12-03 16:38] VITALS: BP 133/89
[2017-12-03] MEDS: TAMSULOSIN HYDROCHLORIDE 0.4 MG CAP PO SCH (19:09)
[2017-12-03] MEDS: HYDROcodone-ACET 10/325MG TAB PO PRN (19:49)
[2017-12-03 22:02] VITALS: BP 148/96
[2017-12-03] MEDS: MONTELUKAST SODIUM 10 MG TAB PO SCH (22:32)
[2017-12-03] MEDS: ZOLPIDEM TARTRATE 5 MG TAB PO PRN (23:43)
[2017-12-04] MEDS: ALBUTEROL SULF 2.5 MG/0.5ML(0.5%) NEB SOLN NEB SCH ×6 (02:00→22:52)
[2017-12-04] MEDS: VANCOMYCIN 1GM/250ML 250 ML IV SCH ×2 (03:23→15:19)
[2017-12-04 04:25] VITALS: BP 118/71
[2017-12-04] MEDS: methylPREDNISolone SOD SUCC 40 MG/ML VL IV SCH ×3 (05:53→21:48)
[2017-12-04] MEDS: BUDESONIDE (INHALATION) 0.5 MG/2 ML NEB NEB SCH ×2 (06:02→20:05)
[2017-12-04 06:11] LABS: Potassium 4.8 mmol/L (3.5-5.1)
[2017-12-04 06:16] LABS: Albumin 3.2 g/dL (3.4-5.0); BUN/Creatinine Ratio 16.2; Calcium 9.1 mg/dL (8.5-10.1)
[2017-12-04 06:21] LABS: Bilirubin, Total 0.2 mg/dL (0.2-1.0); Total Protein 6.6 g/dL (6.4-8.2)
[2017-12-04 07:47] VITALS: BP 139/91
[2017-12-04 09:00] VITALS: BP 125/88
[2017-12-04] MEDS: MYCOPHENOLATE 500 MG TAB PO SCH ×2 (09:14→21:48)
[2017-12-04] MEDS: TACROLIMUS 1 MG CAP PO SCH ×2 (09:15→21:49)
[2017-12-04] MEDS: ENOXAPARIN SOD 40 MG/0.4 ML SYRINGE SC SCH (09:15)
[2017-12-04] MEDS: PANTOPRAZOLE 40 MG/10 ML VIAL IV SCH (09:15)
[2017-12-04] MEDS: HYDROXYCHLOROQUINE SULFATE 200 MG TAB PO SCH (09:16)
[2017-12-04] MEDS: HYDROcodone-ACET 10/325MG TAB PO PRN ×3 (09:16→21:50)
[2017-12-04] MEDS: CARISOPRODOL 350 MG TAB PO SCH ×2 (09:16→21:49)
[2017-12-04] MEDS: OSELTAMIVIR 75 MG CAP PO SCH (09:18)
[2017-12-04] MEDS: CARVEDILOL 3.125 MG TAB PO SCH ×2 (09:18→21:49)
[2017-12-04] MEDS: MAGNESIUM OXIDE 400 MG TAB PO SCH ×2 (09:19→21:49)
[2017-12-04] MEDS: PREGABALIN CAPSULE 75 MG CAP PO SCH ×2 (09:19→21:49)
[2017-12-04] MEDS: FERROUS SULFATE 325 MG TAB PO SCH ×2 (09:19→18:18)
[2017-12-04] MEDS: LORATADINE 10 MG TAB PO SCH (09:19)
[2017-12-04] MEDS: FINASTERIDE 5 MG TAB PO SCH (09:19)
[2017-12-04] MEDS: ONDANSETRON HCL 4 MG/2 ML VIAL IV PRN ×3 (10:24→19:35)
[2017-12-04 12:57] VITALS: BP 118/81
[2017-12-04] MEDS: HCTZ 25 MG TAB PO SCH (13:36)
[2017-12-04 17:00] VITALS: BP 149/95
[2017-12-04] MEDS: TAMSULOSIN HYDROCHLORIDE 0.4 MG CAP PO SCH (18:18)
[2017-12-04] MEDS: MONTELUKAST SODIUM 10 MG TAB PO SCH (21:49)
[2017-12-04 22:00] VITALS: BP 128/87
[2017-12-05] VITALS (7 sets, daily range): BP systolic 121–151; BP diastolic 71–92
[2017-12-05] MEDS: LACTULOSE 20Gm/30ML SOLN PO PRN ×2 (00:06→18:35)
[2017-12-05] MEDS: ZOLPIDEM TARTRATE 5 MG TAB PO PRN ×2 (00:06→23:34)
[2017-12-05] MEDS: ALBUTEROL SULF 2.5 MG/0.5ML(0.5%) NEB SOLN NEB SCH ×6 (02:00→22:55)
[2017-12-05] MEDS: VANCOMYCIN 1GM/250ML 250 ML IV SCH ×2 (02:48→15:04)
[2017-12-05 02:53] LABS: Basophils # (auto) 0 uL; Basophils % (auto) 0.1 % (0.0-2.0); Eosinophils # (auto) 0 uL; Monocytes # (auto) 0.4 uL; Monocytes % (auto) 2.4 % (0.0-12.0)
[2017-12-05 02:55] LABS: Hematocrit 37.1 % (41.0-53.0); Hemoglobin 11.9 g/dL (13.5-17.5); Lymphocytes # (auto) 0.5 uL; Lymphocytes % (auto) 3.2 % (10.0-50.0); Mean Corpuscular Hemoglobin 26.7 pg (28.0-32.0); Mean Corpuscular Volume 83.5 fL (80.0-100.0); Neutrophils % (auto) 94.3 % (37.0-80.0); Platelet Count (auto) 222 10^3/uL (140-450); Red Blood Cells 4.44 10^6/uL (4.5-5.90); Red Cell Distribution Width 14.3 % (11.8-14.3); White Blood Cell 15.9 10^3/uL (4.4-10.8)
[2017-12-05 03:05] LABS: Albumin 3.1 g/dL (3.4-5.0); BUN/Creatinine Ratio 21.6; Calcium 9.4 mg/dL (8.5-10.1)
[2017-12-05 03:08] LABS: Bilirubin, Total 0.2 mg/dL (0.2-1.0); Total Protein 5.9 g/dL (6.4-8.2)
[2017-12-05 03:21] LABS: Potassium 5.7 mmol/L (3.5-5.1)
[2017-12-05] MEDS: methylPREDNISolone SOD SUCC 40 MG/ML VL IV SCH ×3 (05:36→22:02)
[2017-12-05] MEDS: BUDESONIDE (INHALATION) 0.5 MG/2 ML NEB NEB SCH ×2 (06:14→22:55)
[2017-12-05] MEDS: HYDROcodone-ACET 10/325MG TAB PO PRN ×2 (06:49→15:04)
[2017-12-05] MEDS: FERROUS SULFATE 325 MG TAB PO SCH ×2 (08:08→18:34)
[2017-12-05] MEDS: ONDANSETRON HCL 4 MG/2 ML VIAL IV PRN ×2 (08:09→15:05)
[2017-12-05] MEDS: LORATADINE 10 MG TAB PO SCH (10:53)
[2017-12-05] MEDS: FINASTERIDE 5 MG TAB PO SCH (10:54)
[2017-12-05] MEDS: CARISOPRODOL 350 MG TAB PO SCH ×2 (10:54→22:04)
[2017-12-05] MEDS: PREGABALIN CAPSULE 75 MG CAP PO SCH ×2 (10:54→22:04)
[2017-12-05] MEDS: OSELTAMIVIR 75 MG CAP PO SCH (10:55)
[2017-12-05] MEDS: HCTZ 25 MG TAB PO SCH (10:55)
[2017-12-05] MEDS: MAGNESIUM OXIDE 400 MG TAB PO SCH ×2 (10:55→22:04)
[2017-12-05] MEDS: HYDROXYCHLOROQUINE SULFATE 200 MG TAB PO SCH (10:56)
[2017-12-05] MEDS: CARVEDILOL 3.125 MG TAB PO SCH ×2 (10:57→22:04)
[2017-12-05] MEDS: PANTOPRAZOLE 40 MG/10 ML VIAL IV SCH (10:57)
[2017-12-05] MEDS: ENOXAPARIN SOD 40 MG/0.4 ML SYRINGE SC SCH (10:57)
[2017-12-05] MEDS: TACROLIMUS 1 MG CAP PO SCH ×2 (11:01→22:04)
[2017-12-05] MEDS: MYCOPHENOLATE 500 MG TAB PO SCH ×2 (11:01→22:03)
[2017-12-05] MEDS ORDERED: DEXTROSE (50%) 50ML SYRG IV PRN (14:15)
[2017-12-05] MEDS ORDERED: SODIUM POLYSTYRENE SULF 15GM/60ML SUSP PO ONE (14:45)
[2017-12-05] MEDS: ACCU-CHEK COMFORT CURVE STRIP VI SCH ×2 (18:00→23:57)
[2017-12-05] MEDS: TAMSULOSIN HYDROCHLORIDE 0.4 MG CAP PO SCH (18:34)
[2017-12-05] MEDS: InsuLIN REG 1unit/0.01ml Soln (100units/ml) SC SCH ×2 (18:35→23:57)
[2017-12-05] MEDS: MONTELUKAST SODIUM 10 MG TAB PO SCH (22:04)
[2017-12-06] MEDS: ALBUTEROL SULF 2.5 MG/0.5ML(0.5%) NEB SOLN NEB SCH ×6 (02:00→22:06)
[2017-12-06] MEDS: VANCOMYCIN 1GM/250ML 250 ML IV SCH ×2 (02:50→15:28)
[2017-12-06] MEDS: methylPREDNISolone SOD SUCC 40 MG/ML VL IV SCH ×3 (05:36→21:51)
[2017-12-06] MEDS: InsuLIN REG 1unit/0.01ml Soln (100units/ml) SC SCH ×4 (05:37→23:22)
[2017-12-06] MEDS: ACCU-CHEK COMFORT CURVE STRIP VI SCH ×4 (05:37→23:22)
[2017-12-06 05:47] VITALS: BP 146/87
[2017-12-06 07:39] VITALS: BP 105/71
[2017-12-06] MEDS: BUDESONIDE (INHALATION) 0.5 MG/2 ML NEB NEB SCH ×2 (08:42→18:13)
[2017-12-06] MEDS: MAGNESIUM OXIDE 400 MG TAB PO SCH ×2 (08:56→21:53)
[2017-12-06] MEDS: HYDROXYCHLOROQUINE SULFATE 200 MG TAB PO SCH (08:56)
[2017-12-06] MEDS: LORATADINE 10 MG TAB PO SCH (08:56)
[2017-12-06] MEDS: FINASTERIDE 5 MG TAB PO SCH (08:56)
[2017-12-06] MEDS: PREGABALIN CAPSULE 75 MG CAP PO SCH ×2 (08:56→21:53)
[2017-12-06] MEDS: FERROUS SULFATE 325 MG TAB PO SCH ×2 (08:56→17:46)
[2017-12-06] MEDS: CARISOPRODOL 350 MG TAB PO SCH ×2 (08:57→21:54)
[2017-12-06] MEDS: OSELTAMIVIR 75 MG CAP PO SCH (08:57)
[2017-12-06] MEDS: ENOXAPARIN SOD 40 MG/0.4 ML SYRINGE SC SCH (08:57)
[2017-12-06] MEDS: MYCOPHENOLATE 500 MG TAB PO SCH ×2 (08:58→21:52)
[2017-12-06] MEDS: PANTOPRAZOLE 40 MG/10 ML VIAL IV SCH (08:58)
[2017-12-06] MEDS: TACROLIMUS 1 MG CAP PO SCH ×2 (08:58→21:53)
[2017-12-06] MEDS: CARVEDILOL 3.125 MG TAB PO SCH ×2 (08:59→21:53)
[2017-12-06] MEDS: HCTZ 25 MG TAB PO SCH (09:23)
[2017-12-06] MEDS: HYDROcodone-ACET 10/325MG TAB PO PRN (09:29)
[2017-12-06 12:12] VITALS: BP 135/92
[2017-12-06 16:59] VITALS: BP 126/80
[2017-12-06] MEDS: TAMSULOSIN HYDROCHLORIDE 0.4 MG CAP PO SCH (17:46)
[2017-12-06] MEDS: ONDANSETRON HCL 4 MG/2 ML VIAL IV PRN (18:05)
[2017-12-06] MEDS: MONTELUKAST SODIUM 10 MG TAB PO SCH (21:53)
[2017-12-06 22:22] VITALS: BP 158/90
[2017-12-06] MEDS: ZOLPIDEM TARTRATE 5 MG TAB PO PRN (23:21)
[2017-12-07] MEDS: VANCOMYCIN 1GM/250ML 250 ML IV SCH ×2 (02:46→15:10)
[2017-12-07 05:34] LABS: Basophils # (auto) 0 uL; Eosinophils # (auto) 0 uL; Hemoglobin 11.9 g/dL (13.5-17.5); Lymphocytes # (auto) 0.5 uL; Monocytes # (auto) 0.5 uL
[2017-12-07 05:35] VITALS: BP 119/61
[2017-12-07 05:36] LABS: Basophils % (auto) 0.2 % (0.0-2.0); Lymphocytes % (auto) 3.9 % (10.0-50.0); Mean Corpuscular Hgb Conc. 32.3 g/dL (32.0-36.0); Mean Corpuscular Volume 83.5 fL (80.0-100.0); Neutrophils # (auto) 12.2 uL; Neutrophils % (auto) 91.9 % (37.0-80.0); Nucleated Red Blood Cells % 0.1 %; Platelet Count (auto) 254 10^3/uL (140-450); Red Blood Cells 4.43 10^6/uL (4.5-5.90); Red Cell Distribution Width 13.9 % (11.8-14.3); White Blood Cell 13.3 10^3/uL (4.4-10.8)
[2017-12-07 05:45] LABS: BUN/Creatinine Ratio 22.5; Potassium 4.3 mmol/L (3.5-5.1)
[2017-12-07] MEDS: methylPREDNISolone SOD SUCC 40 MG/ML VL IV SCH ×2 (05:48→14:48)
[2017-12-07] MEDS: ACCU-CHEK COMFORT CURVE STRIP VI SCH ×4 (05:49→23:39)
[2017-12-07] MEDS: InsuLIN REG 1unit/0.01ml Soln (100units/ml) SC SCH ×4 (05:49→23:39)
[2017-12-07] MEDS: HYDROcodone-ACET 10/325MG TAB PO PRN ×3 (05:50→18:21)
[2017-12-07] MEDS: ALBUTEROL SULF 2.5 MG/0.5ML(0.5%) NEB SOLN NEB SCH ×7 (05:57→22:29)
[2017-12-07] MEDS: BUDESONIDE (INHALATION) 0.5 MG/2 ML NEB NEB SCH ×2 (06:08→18:38)
[2017-12-07 09:13] VITALS: BP 177/86
[2017-12-07] MEDS: HCTZ 25 MG TAB PO SCH (10:00)
[2017-12-07] MEDS: FINASTERIDE 5 MG TAB PO SCH (10:18)
[2017-12-07] MEDS: ONDANSETRON HCL 4 MG/2 ML VIAL IV PRN (10:18)
[2017-12-07] MEDS: PANTOPRAZOLE 40 MG/10 ML VIAL IV SCH (10:18)
[2017-12-07] MEDS: MAGNESIUM OXIDE 400 MG TAB PO SCH ×2 (10:18→21:26)
[2017-12-07] MEDS: ENOXAPARIN SOD 40 MG/0.4 ML SYRINGE SC SCH (10:19)
[2017-12-07] MEDS: CARISOPRODOL 350 MG TAB PO SCH ×2 (10:19→21:26)
[2017-12-07] MEDS: HYDROXYCHLOROQUINE SULFATE 200 MG TAB PO SCH (10:19)
[2017-12-07] MEDS: OSELTAMIVIR 75 MG CAP PO SCH (10:19)
[2017-12-07] MEDS: TACROLIMUS 1 MG CAP PO SCH ×2 (10:19→21:25)
[2017-12-07] MEDS: PREGABALIN CAPSULE 75 MG CAP PO SCH ×2 (10:19→21:26)
[2017-12-07] MEDS: LORATADINE 10 MG TAB PO SCH (10:19)
[2017-12-07] MEDS: MYCOPHENOLATE 500 MG TAB PO SCH ×2 (10:20→21:25)
[2017-12-07] MEDS: CARVEDILOL 3.125 MG TAB PO SCH ×2 (10:21→21:53)
[2017-12-07 12:01] VITALS: BP 143/99
[2017-12-07] MEDS: FERROUS SULFATE 325 MG TAB PO SCH ×2 (12:21→18:15)
[2017-12-07 14:36] LABS: Basophils # (auto) 0 uL; Eosinophils # (auto) 0 uL; Nucleated Red Blood Cells % 0.1 %; Red Blood Cells 4.38 10^6/uL (4.5-5.90)
[2017-12-07 14:37] LABS: Hematocrit 36.5 % (41.0-53.0); Hemoglobin 11.8 g/dL (13.5-17.5); Lymphocytes # (auto) 0.4 uL; Lymphocytes % (auto) 3.4 % (10.0-50.0); Mean Corpuscular Hemoglobin 27.1 pg (28.0-32.0); Mean Corpuscular Hgb Conc. 32.4 g/dL (32.0-36.0); Mean Corpuscular Volume 83.4 fL (80.0-100.0); Monocytes # (auto) 0.4 uL; Monocytes % (auto) 3.2 % (0.0-12.0); Neutrophils # (auto) 11.9 uL; Neutrophils % (auto) 93.4 % (37.0-80.0); Platelet Count (auto) 245 10^3/uL (140-450); Red Cell Distribution Width 14.3 % (11.8-14.3); White Blood Cell 12.8 10^3/uL (4.4-10.8)
[2017-12-07 14:54] LABS: BUN/Creatinine Ratio 18.8; Bilirubin, Total 0.2 mg/dL (0.2-1.0); Calcium 8.6 mg/dL (8.5-10.1); Potassium 4.5 mmol/L (3.5-5.1); Total Protein 5.9 g/dL (6.4-8.2)
[2017-12-07 17:01] VITALS: BP 139/86
[2017-12-07] MEDS ORDERED: InsuLIN REG 1unit/0.01ml Soln (100units/ml) SC ONE (17:45)
[2017-12-07] MEDS: TAMSULOSIN HYDROCHLORIDE 0.4 MG CAP PO SCH (18:15)
[2017-12-07 20:35] VITALS: BP 139/86
[2017-12-07] MEDS: MONTELUKAST SODIUM 10 MG TAB PO SCH (21:26)
[2017-12-07] MEDS: ZOLPIDEM TARTRATE 5 MG TAB PO PRN (23:20)
[2017-12-07 23:24] VITALS: BP 131/81
[2017-12-08] MEDS: VANCOMYCIN 1GM/250ML 250 ML IV SCH ×2 (02:34→17:01)
[2017-12-08 05:28] VITALS: BP 121/62
[2017-12-08 05:35] LABS: Basophils # (auto) 0 uL; Eosinophils # (auto) 0 uL; Hemoglobin 11.5 g/dL (13.5-17.5); Lymphocytes # (auto) 0.8 uL; Monocytes % (auto) 7.7 % (0.0-12.0); Red Cell Distribution Width 14.4 % (11.8-14.3)
[2017-12-08 05:37] LABS: Lymphocytes % (auto) 5.7 % (10.0-50.0); Mean Corpuscular Hemoglobin 27.2 pg (28.0-32.0); Mean Corpuscular Hgb Conc. 32.9 g/dL (32.0-36.0); Mean Corpuscular Volume 82.7 fL (80.0-100.0); Neutrophils # (auto) 11.7 uL; Neutrophils % (auto) 86.6 % (37.0-80.0); Nucleated Red Blood Cells % 0.1 %; Platelet Count (auto) 233 10^3/uL (140-450); Red Blood Cells 4.23 10^6/uL (4.5-5.90); White Blood Cell 13.6 10^3/uL (4.4-10.8)
[2017-12-08 05:55] LABS: BUN/Creatinine Ratio 26.4; Calcium 8.9 mg/dL (8.5-10.1); Potassium 4.4 mmol/L (3.5-5.1)
[2017-12-08] MEDS: InsuLIN REG 1unit/0.01ml Soln (100units/ml) SC SCH ×3 (06:05→18:34)
[2017-12-08] MEDS: ACCU-CHEK COMFORT CURVE STRIP VI SCH ×3 (06:05→18:34)
[2017-12-08] MEDS: ALBUTEROL SULF 2.5 MG/0.5ML(0.5%) NEB SOLN NEB SCH ×4 (06:05→18:22)
[2017-12-08] MEDS: FERROUS SULFATE 325 MG TAB PO SCH ×2 (08:48→18:16)
[2017-12-08 09:00] VITALS: BP 136/78
[2017-12-08] MEDS ORDERED: predniSONE 20 MG TAB PO SCH (10:00)
[2017-12-08] MEDS: PANTOPRAZOLE 40 MG/10 ML VIAL IV SCH (10:03)
[2017-12-08] MEDS: ONDANSETRON HCL 4 MG/2 ML VIAL IV PRN (10:03)
[2017-12-08] MEDS: ENOXAPARIN SOD 40 MG/0.4 ML SYRINGE SC SCH (10:04)
[2017-12-08] MEDS: TACROLIMUS 1 MG CAP PO SCH (10:04)
[2017-12-08] MEDS: CARISOPRODOL 350 MG TAB PO SCH (10:06)
[2017-12-08] MEDS: CARVEDILOL 3.125 MG TAB PO SCH (10:06)
[2017-12-08] MEDS: HYDROXYCHLOROQUINE SULFATE 200 MG TAB PO SCH (10:07)
[2017-12-08] MEDS: LORATADINE 10 MG TAB PO SCH (10:07)
[2017-12-08] MEDS: MYCOPHENOLATE 500 MG TAB PO SCH (10:07)
[2017-12-08] MEDS: PREGABALIN CAPSULE 75 MG CAP PO SCH (10:08)
[2017-12-08] MEDS: HYDROcodone-ACET 10/325MG TAB PO PRN (10:08)
[2017-12-08] MEDS: FINASTERIDE 5 MG TAB PO SCH (10:09)
[2017-12-08] MEDS: MAGNESIUM OXIDE 400 MG TAB PO SCH (10:09)
[2017-12-08] MEDS: BUDESONIDE (INHALATION) 0.5 MG/2 ML NEB NEB SCH ×2 (10:27→18:27)
[2017-12-08] MEDS: HCTZ 25 MG TAB PO SCH (10:38)
[2017-12-08 13:00] VITALS: BP 121/80
[2017-12-08] MEDS: TAMSULOSIN HYDROCHLORIDE 0.4 MG CAP PO SCH (18:15)
[2017-12-08 18:59] VITALS: BP 137/94
== END 2017-12-08 20:26 | disposition home or self-care (01) | DRG 291 ==
LOC: ER 01:14 → EDBD 01:14 → TELE 01:15 → TELE-EAST 11-26 15:47 → TELE-CENTR 11-27 02:35
PROVIDERS: ADMIT Family Medicine; ATTEND Internal Medicine Cardiovascular Disease
DX: I13.0 Hypertensive heart and chronic kidney disease with heart failure and stage 1 through stage 4 chronic kidney disease, or unspecified chronic kidney disease (principal); J18.9 Pneumonia, unspecified organism; J96.00 Acute respiratory failure, unspecified whether with hypoxia or hypercapnia; Z94.1 Heart transplant status; E11.22 Type 2 diabetes mellitus with diabetic chronic kidney disease; I25.811 Atherosclerosis of native coronary artery of transplanted heart without angina pectoris; N18.3 Chronic kidney disease, stage 3 (moderate); I50.43 Acute on chronic combined systolic (congestive) and diastolic (congestive) heart failure; K86.1 Other chronic pancreatitis; J44.0 Chronic obstructive pulmonary disease with (acute) lower respiratory infection; J44.1 Chronic obstructive pulmonary disease with (acute) exacerbation; I42.9 Cardiomyopathy, unspecified; E78.5 Hyperlipidemia, unspecified; E87.6 Hypokalemia; R19.7 Diarrhea, unspecified; J20.9 Acute bronchitis, unspecified; F03.90 Unspecified dementia, unspecified severity, without behavioral disturbance, psychotic disturbance, mood disturbance, and anxiety; K59.00 Constipation, unspecified; G89.4 Chronic pain syndrome; Z82.49 Family history of ischemic heart disease and other diseases of the circulatory system; Z83.3 Family history of diabetes mellitus; Z86.73 Personal history of transient ischemic attack (TIA), and cerebral infarction without residual deficits; Z95.1 Presence of aortocoronary bypass graft; Z99.81 Dependence on supplemental oxygen; Z88.0 Allergy status to penicillin; Z88.8 Allergy status to other drugs, medicaments and biological substances; Z88.5 Allergy status to narcotic agent; Z88.1 Allergy status to other antibiotic agents; Z79.4 Long term (current) use of insulin; Z79.899 Other long term (current) drug therapy
CPT/HCPCS: 36415; 36600; 71045; 78582; 80048; 80053; 80202; 81001; 82150; 82805; 82962; 83605; 83690; 83735; 83880; 84484; 85025; 85379; 87040; 87081; 87400; 93005; 93306; 93970; 94640; 96374; 96375; C9113; J1815; J2405; J7507; J7517

== ENCOUNTER → 2017-12-26 | Outpatient (CLI) | payer MEDICARE, MEDICAID ==
[~2017-12-26] MED LIST changes: -CARI-316; -DOCU-55; -GABA250S2 PO; -INSLISPI SC; -INSU1.2I SC; -LIS10T PO; +LISI2.5T47 PO; -NORVASC; +PREG50CA PO; -PROGRAF; -SULF400T11; -TACR1CAP19 PO; +TACR1CAP4 PO; -TACR5CAP15 PO; +TEMA15CA PO; -ZOLP10TA6
== END | disposition home or self-care (01) ==
LOC: Rad HDHVI 12:00
PROVIDERS: ATTEND Internal Medicine Cardiovascular Disease
DX: I51.7 Cardiomegaly (principal); I70.0 Atherosclerosis of aorta; Z98.890 Other specified postprocedural states
CPT/HCPCS: 71046

== ENCOUNTER → 2018-01-21 | Outpatient (CLI) | payer MEDICARE, MEDICAID ==
[~2018-01-21] MED LIST changes: +CYANOCOBALAMIN (B-12) 1000 MCG/1 ML VIAL IM ONE; +CYANOCOBALAMIN (B-12) 1000 MCG/1 ML VIAL ONE; +cefTRIAXone 1GM/10ml IVPUSH 10 ML IV ONE; +cefTRIAXone 1GM/10ml IVPUSH 10 ML IV SCH
[2018-01-21 11:34] VITALS: BP 141/92
[2018-01-21 12:15] VITALS: BP 109/78
[2018-01-21 13:28] VITALS: BP 109/78
[2018-01-21 16:26] LABS: Basophils # (auto) 0 uL; Basophils % (auto) 0.5 % (0.0-2.0); Eosinophils # (auto) 0.1 uL; Eosinophils % (auto) 1.6 % (0.0-7.0); Hematocrit 36.1 % (41.0-53.0); Hemoglobin 11.8 g/dL (13.5-17.5); Lymphocytes # (auto) 1.5 uL; Lymphocytes % (auto) 37.2 % (10.0-50.0); Mean Corpuscular Hemoglobin 27.4 pg (28.0-32.0); Mean Corpuscular Hgb Conc. 32.7 g/dL (32.0-36.0); Mean Corpuscular Volume 83.9 fL (80.0-100.0); Monocytes # (auto) 0.5 uL; Monocytes % (auto) 11.8 % (0.0-12.0); Neutrophils % (auto) 48.9 % (37.0-80.0); Nucleated Red Blood Cells % 0.1 %; Platelet Count (auto) 176 10^3/uL (140-450); Red Cell Distribution Width 14.8 % (11.8-14.3)
[2018-01-21 16:36] LABS: Albumin 3.6 g/dL (3.4-5.0); BUN/Creatinine Ratio 10.7; Bilirubin, Total 0.3 mg/dL (0.2-1.0); Calcium 8.9 mg/dL (8.5-10.1); Potassium 3.6 mmol/L (3.5-5.1); Total Protein 6.5 g/dL (6.4-8.2)
== END | disposition home or self-care (01) ==
LOC: CHF HDHVI 10:49
PROVIDERS: ATTEND Internal Medicine Cardiovascular Disease
DX: I10 Essential (primary) hypertension (principal); E11.9 Type 2 diabetes mellitus without complications; D64.9 Anemia, unspecified; E55.9 Vitamin D deficiency, unspecified
CPT/HCPCS: 36415; 80053; 82306; 83036; 85025; G0463; J3420; 96372; 96374

== ENCOUNTER → 2018-08-04 | Outpatient (CLI) | payer MEDICARE, MEDICAID ==
[~2018-08-04] MED LIST changes: -CYANOCOBALAMIN (B-12) 1000 MCG/1 ML VIAL IM ONE; -CYANOCOBALAMIN (B-12) 1000 MCG/1 ML VIAL ONE; -cefTRIAXone 1GM/10ml IVPUSH 10 ML IV ONE; -cefTRIAXone 1GM/10ml IVPUSH 10 ML IV SCH
== END | disposition home or self-care (01) ==
LOC: Rad HDHVI 09:51
PROVIDERS: ATTEND Internal Medicine Cardiovascular Disease
DX: E11.9 Type 2 diabetes mellitus without complications (principal); E78.00 Pure hypercholesterolemia, unspecified; Z94.1 Heart transplant status; Z88.0 Allergy status to penicillin; Z88.5 Allergy status to narcotic agent; Z88.8 Allergy status to other drugs, medicaments and biological substances
CPT/HCPCS: 93306; 93880

== ENCOUNTER → 2018-08-21 | Outpatient (CLI) | payer MEDICARE, MEDICAID ==
[~2018-08-21] VITALS: Ht 190.5 cm; Wt 120.2 kg
[~2018-08-21] MED LIST changes: +ADENOSINE 101 MG in GIVE UN-DILUTED 0 ML IV ONE; +ADENOSINE 90 MG/30 ML INJ IV ONE
== END | disposition home or self-care (01) ==
LOC: Rad HDHVI 09:21
PROVIDERS: ATTEND Internal Medicine Cardiovascular Disease
DX: E11.9 Type 2 diabetes mellitus without complications (principal); L03.90 Cellulitis, unspecified; E78.00 Pure hypercholesterolemia, unspecified; Z94.1 Heart transplant status
CPT/HCPCS: 78452; 93005; 96374; 96375; A9500; J0153

== ENCOUNTER → 2018-11-13 | Outpatient (CLI) | payer MEDICARE, MEDICAID ==
[~2018-11-13] MED LIST changes: -ADENOSINE 101 MG in GIVE UN-DILUTED 0 ML IV ONE; -ADENOSINE 90 MG/30 ML INJ IV ONE
[2018-11-13 16:21] LABS: Basophils # (auto) 0 uL; Eosinophils # (auto) 0.1 uL; Hemoglobin 12.6 g/dL (13.5-17.5); Lymphocytes # (auto) 1.4 uL; Monocytes # (auto) 0.6 uL; Nucleated Red Blood Cells % 0.2 %
[2018-11-13 16:25] LABS: Basophils % (auto) 0.3 % (0.0-2.0); Eosinophils % (auto) 2.3 % (0.0-7.0); Hematocrit 38.9 % (41.0-53.0); Lymphocytes % (auto) 25.8 % (10.0-50.0); Mean Corpuscular Hemoglobin 26.1 pg (28.0-32.0); Mean Corpuscular Hgb Conc. 32.3 g/dL (32.0-36.0); Mean Corpuscular Volume 80.9 fL (80.0-100.0); Neutrophils # (auto) 3.4 uL; Neutrophils % (auto) 61.6 % (37.0-80.0); Platelet Count (auto) 221 10^3/uL (140-450); Red Blood Cells 4.81 10^6/uL (4.5-5.90); Red Cell Distribution Width 16.1 % (11.8-14.3); White Blood Cell 5.6 10^3/uL (4.4-10.8)
[2018-11-13 16:33] LABS: Albumin 3.9 g/dL (3.4-5.0); Potassium 3.9 mmol/L (3.5-5.1)
[2018-11-13 16:40] LABS: BUN/Creatinine Ratio 10.9; Bilirubin, Direct 0.1 mg/dL (0-0.2); Bilirubin, Total 0.5 mg/dL (0.2-1.0); Calcium 9.6 mg/dL (8.5-10.1)
[2018-11-13 16:44] LABS: Free T4 (Free Thyroxine) 1.2 ng/dL (0.89-1.76)
[2018-11-13 16:45] LABS: Prostate Specific Antigen 1.08 ng/mL (0.0-4.0)
== END | disposition home or self-care (01) ==
LOC: Rad HDHVI 11:15
PROVIDERS: ATTEND Internal Medicine Cardiovascular Disease
DX: I70.0 Atherosclerosis of aorta (principal); I13.0 Hypertensive heart and chronic kidney disease with heart failure and stage 1 through stage 4 chronic kidney disease, or unspecified chronic kidney disease; E11.22 Type 2 diabetes mellitus with diabetic chronic kidney disease; I50.9 Heart failure, unspecified; N18.3 Chronic kidney disease, stage 3 (moderate); E78.5 Hyperlipidemia, unspecified; E03.9 Hypothyroidism, unspecified; E55.9 Vitamin D deficiency, unspecified; C61 Malignant neoplasm of prostate; D51.9 Vitamin B12 deficiency anemia, unspecified; K74.1 Hepatic sclerosis; J90 Pleural effusion, not elsewhere classified; J98.4 Other disorders of lung
CPT/HCPCS: 36415; 71046; 80048; 80061; 80076; 83036; 84153; 84403; 84439; 84443; 85025

== ENCOUNTER → 2018-11-27 | Outpatient (CLI) | payer MEDICARE, MEDICAID ==
[~2018-11-27] MED LIST changes: +LEVOFLOXACIN 500MG 100 ML IV ONE; +VANCOMYCIN 1GM/250ML 250 ML IV ONE; +methylPREDNISolone SOD SUCC 125 MG/2 ML VL IV ONE; +methylPREDNISolone SOD SUCC 125 MG/2 ML VL ONE
--- NOTE | 2018-11-27 12:20 | NUR ---
PATIENT SENT FROM MD SIDE WITH ORDERS ENTERED, PATIENT ON 3LPM O2.
--- NOTE | 2018-11-27 12:30 | NUR ---
IV insertion IV access obtained by Anthony BLEDSOE, via clean sterile technique by inserting 22 gauge catheter at after 1 attempt(s). LABS DRAWN, IV secured properly. No trauma to site. Patient tolerated procedure well.
--- NOTE | 2018-11-27 14:50 | NUR ---
IV removal IV DC'd with sterile technique, catheter fully intact. Pressure dressing applied to site. Patient tolerated procedure well.
[2018-11-27 15:00] VITALS: BP 99/56
--- NOTE | 2018-11-27 15:00 | NUR ---
[facility] Discharge Instructions See e-MAR for any mediations given with this visit. Patient education given on disease process. Patient verbalized understanding. Previous labs reviewed. Patient discharged in stable condition with after care instructions and follow up appointment. NOTE JORDEN [id number] ADMIN BY ANUP MILLAN [id number] ADMIN BY YISSEL BLEDSOE SOLUMEDROL IVP ADMIN BY ANUP BLEDSOE
== END | disposition home or self-care (01) ==
LOC: CHF HDHVI 12:19
PROVIDERS: ATTEND Internal Medicine Cardiovascular Disease
DX: J44.9 Chronic obstructive pulmonary disease, unspecified (principal); R53.1 Weakness; I70.0 Atherosclerosis of aorta; I13.0 Hypertensive heart and chronic kidney disease with heart failure and stage 1 through stage 4 chronic kidney disease, or unspecified chronic kidney disease; E11.22 Type 2 diabetes mellitus with diabetic chronic kidney disease; N18.3 Chronic kidney disease, stage 3 (moderate); I50.42 Chronic combined systolic (congestive) and diastolic (congestive) heart failure; I25.10 Atherosclerotic heart disease of native coronary artery without angina pectoris; I42.9 Cardiomyopathy, unspecified; I48.91 Unspecified atrial fibrillation; E78.5 Hyperlipidemia, unspecified; E03.9 Hypothyroidism, unspecified; E78.00 Pure hypercholesterolemia, unspecified; G89.4 Chronic pain syndrome; M48.02 Spinal stenosis, cervical region; Z95.1 Presence of aortocoronary bypass graft; Z79.899 Other long term (current) drug therapy; Z95.810 Presence of automatic (implantable) cardiac defibrillator; Z85.46 Personal history of malignant neoplasm of prostate; Z86.73 Personal history of transient ischemic attack (TIA), and cerebral infarction without residual deficits; Z99.81 Dependence on supplemental oxygen
CPT/HCPCS: 96365; 96367; 96375; G0463; J1956; J2930; J3370

== ENCOUNTER → 2019-01-11 | Outpatient (CLI) | payer MEDICARE, MEDICAID ==
[~2019-01-11] MED LIST changes: -LEVOFLOXACIN 500MG 100 ML IV ONE; -VANCOMYCIN 1GM/250ML 250 ML IV ONE; -methylPREDNISolone SOD SUCC 125 MG/2 ML VL IV ONE; -methylPREDNISolone SOD SUCC 125 MG/2 ML VL ONE
== END | disposition home or self-care (01) ==
LOC: Rad HDHVI 15:14
PROVIDERS: ATTEND Internal Medicine Cardiovascular Disease
DX: M48.061 Spinal stenosis, lumbar region without neurogenic claudication (principal); M48.07 Spinal stenosis, lumbosacral region; M25.78 Osteophyte, vertebrae
CPT/HCPCS: 72131

== ENCOUNTER → 2019-02-17 | Outpatient (CLI) | payer MEDICARE, MEDICAID ==
[~2019-02-17] MED LIST changes: +VANCOMYCIN 1GM/250ML 250 ML IV ONE; +cefTRIAXone 1GM/50ML D5W 50 ML IV ONE; +cefTRIAXone SOD 1,000 MG VL ONE
[2019-02-17 10:23] VITALS: BP 110/70
--- NOTE | 2019-02-17 10:23 | NUR ---
IV insertion IV access obtained, via clean sterile technique by inserting 22 gauge catheter at LAC after 1 attempt(s). IV secured properly. No trauma to site. Patient tolerated procedure well.
--- NOTE | 2019-02-17 11:45 | NUR ---
IV removal IV DC'd with sterile technique, catheter fully intact. Pressure dressing applied to site. Patient tolerated procedure well.
[2019-02-17 11:49] VITALS: BP 123/82
--- NOTE | 2019-02-17 11:49 | NUR ---
[facility] Discharge Instructions See e-MAR for any mediations given with this visit. Patient education given on disease process. Patient verbalized understanding. Previous labs reviewed. Patient discharged in stable condition with after care instructions and follow up appointment. NOTE ALISA IVP [id number] ADMIN BY YISSEL LEONARDO IV [id number] ADMIN BY YISSEL BLEDSOE
== END | disposition home or self-care (01) ==
LOC: CHF HDHVI 10:22
PROVIDERS: ATTEND Internal Medicine Cardiovascular Disease
DX: J20.9 Acute bronchitis, unspecified (principal); M48.061 Spinal stenosis, lumbar region without neurogenic claudication; M48.07 Spinal stenosis, lumbosacral region
CPT/HCPCS: 96365; 96375; G0463; J0696; J3370

== ENCOUNTER → 2019-02-19 | Outpatient (CLI) | payer MEDICARE, MEDICAID ==
[~2019-02-19] VITALS: Ht 30.5 cm; Wt 0.5 kg
[~2019-02-19] MED LIST changes: +cefTRIAXone 1GM/10ml IVPUSH 10 ML IV ONE; -cefTRIAXone 1GM/50ML D5W 50 ML IV ONE
[2019-02-19 10:55] VITALS: BP 121/77
--- NOTE | 2019-02-19 10:55 | NUR ---
[facility] PT ARRIVED AT [facility] FOR IV [facility]TIBIOTICS.
--- NOTE | 2019-02-19 11:10 | NUR ---
IV insertion IV access obtained, via clean sterile technique by inserting 22 gauge catheter at RIGHT HAND after 2 attempt(s). IV secured properly. No trauma to site. Patient tolerated procedure well.
--- NOTE | 2019-02-19 11:40 | NUR ---
MEDICATIONS ADMINISTERED 1 GM ROCEPHIN IVP 1 GM VANCOMYCIN IVPB
[2019-02-19 12:21] VITALS: BP 104/71
--- NOTE | 2019-02-19 12:21 | NUR ---
IV removal IV DC'd with sterile technique, catheter fully intact. Pressure dressing applied to site. Patient tolerated procedure well. Discharged with aftercare instructions per MD. Discharge Instructions See e-MAR for any mediations given with this visit. Patient education given on disease process. Patient verbalized understanding. Patient discharged in stable condition with after care instructions and follow up appointment.
--- NOTE | 2019-02-19 12:30 | NUR ---
DR MARCUS IN ATTENDANCE. PLAN FOR 2 ADDITIONAL DAYS OF IV ANTIBIOTICS ON FRIDAY AND FRIDAY.
== END | disposition home or self-care (01) ==
LOC: CHF HDHVI 10:48
PROVIDERS: ATTEND Internal Medicine Cardiovascular Disease
DX: J06.9 Acute upper respiratory infection, unspecified (principal); I11.0 Hypertensive heart disease with heart failure; I50.9 Heart failure, unspecified; I48.91 Unspecified atrial fibrillation; E11.9 Type 2 diabetes mellitus without complications; I70.0 Atherosclerosis of aorta; M48.061 Spinal stenosis, lumbar region without neurogenic claudication; Z95.1 Presence of aortocoronary bypass graft; Z95.810 Presence of automatic (implantable) cardiac defibrillator
CPT/HCPCS: 96365; 96375; G0463; J0696; J3370

== ENCOUNTER → 2019-02-23 | Outpatient (CLI) | payer MEDICARE, MEDICAID ==
[~2019-02-23] MED LIST changes: -cefTRIAXone 1GM/10ml IVPUSH 10 ML IV ONE; +cefTRIAXone 1GM/50ML D5W 50 ML IV ONE; -cefTRIAXone SOD 1,000 MG VL ONE
[2019-02-23 12:56] VITALS: BP 105/68
--- NOTE | 2019-02-23 13:00 | NUR ---
CHF IV insertion IV access obtained, via clean sterile technique by inserting 22 gauge catheter at after attempt(s). IV secured properly. No trauma to site. Patient tolerated procedure well.
--- NOTE | 2019-02-23 13:10 | NUR ---
START IV ANTIBIOTICS PER ORDER.
--- NOTE | 2019-02-23 14:20 | NUR ---
IV removal IV DC'd with sterile technique, catheter fully intact. Pressure dressing applied to site. Patient tolerated procedure well.
[2019-02-23 14:25] VITALS: BP 114/56
--- NOTE | 2019-02-23 14:25 | NUR ---
[facility] Discharge Instructions See e-MAR for any mediations given with this visit. Patient education given on disease process. Patient verbalized understanding. Previous labs reviewed. Patient discharged in stable condition with after care instructions and follow up appointment. NOTE ALISA [id number] ADMIN BY ADEEL BLEDSOE. JORDEN [id number] ADMIN BY ADEEL BLEDSOE.
== END | disposition home or self-care (01) ==
LOC: CHF HDHVI 13:02
PROVIDERS: ATTEND Internal Medicine Cardiovascular Disease
DX: J20.9 Acute bronchitis, unspecified (principal); J90 Pleural effusion, not elsewhere classified; J92.9 Pleural plaque without asbestos; I70.0 Atherosclerosis of aorta; K13.79 Other lesions of oral mucosa; I11.0 Hypertensive heart disease with heart failure; I50.9 Heart failure, unspecified; E11.9 Type 2 diabetes mellitus without complications; I48.91 Unspecified atrial fibrillation; M48.07 Spinal stenosis, lumbosacral region; Z94.1 Heart transplant status; Z95.1 Presence of aortocoronary bypass graft; Z95.810 Presence of automatic (implantable) cardiac defibrillator
CPT/HCPCS: 71046; 96365; 96375; G0463; J0696; J3370

== ENCOUNTER 2019-09-14 13:56 | Emergency (ER) | payer MEDICARE, MEDICAID ==
[~2019-09-14] VITALS: Ht 185.4 cm; Wt 104.3 kg
[~2019-09-14 13:56] MED LIST changes: -AML5T PO; +DOCU-94 PO; +HYDR-3682 PO; -LISI2.5T47 PO; +OXYB5SYP4 PO; -TEMA15CA PO; -TRIA0.25 PO; -VANCOMYCIN 1GM/250ML 250 ML IV ONE; -cefTRIAXone 1GM/50ML D5W 50 ML IV ONE
[2019-09-14 14:58] LABS: Hemoglobin 10.1 g/dL (13.5-17.5); Red Cell Distribution Width 14.8 % (11.8-14.3)
[2019-09-14 15:00] LABS: Basophils # (auto) 0 uL; Basophils % (auto) 0.1 % (0.0-2.0); Eosinophils # (auto) 0 uL; Hematocrit 31.7 % (41.0-53.0); Lymphocytes # (auto) 0.4 uL; Lymphocytes % (auto) 4.8 % (10.0-50.0); Mean Corpuscular Hemoglobin 25.6 pg (28.0-32.0); Mean Corpuscular Hgb Conc. 31.9 g/dL (32.0-36.0); Mean Corpuscular Volume 80.2 fL (80.0-100.0); Monocytes # (auto) 0.7 uL; Monocytes % (auto) 9.2 % (0.0-12.0); Neutrophils # (auto) 6.4 uL; Neutrophils % (auto) 85.9 % (37.0-80.0); Platelet Count (auto) 149 10^3/uL (140-450); Red Blood Cells 3.96 10^6/uL (4.5-5.90); White Blood Cell 7.5 10^3/uL (4.4-10.8)
[2019-09-14 15:17] LABS: Albumin 3.2 g/dL (3.4-5.0); BUN/Creatinine Ratio 15.5; Calcium 9.9 mg/dL (8.5-10.1); Potassium 3.8 mmol/L (3.5-5.1)
[2019-09-14 15:20] LABS: Bilirubin, Total 0.3 mg/dL (0.2-1.0); Total Protein 6.8 g/dL (6.4-8.2)
[2019-09-14 18:03] VITALS: BP 127/64
[2019-09-14 18:36] LABS: INR 1.06 (0.9-1.15); Partial Thromboplastin Time 29.6 sec (23.64-32.05)
== END 2019-09-14 18:41 | disposition left against medical advice (07) ==
LOC: EDBD 13:56 → ER 14:11
DX: G93.41 Metabolic encephalopathy (principal); J39.2 Other diseases of pharynx; E11.22 Type 2 diabetes mellitus with diabetic chronic kidney disease; N18.9 Chronic kidney disease, unspecified; I50.9 Heart failure, unspecified; E78.5 Hyperlipidemia, unspecified; Z95.1 Presence of aortocoronary bypass graft; Z79.899 Other long term (current) drug therapy; Z88.6 Allergy status to analgesic agent; Z88.0 Allergy status to penicillin
CPT/HCPCS: 36415; 70450; 71045; 80053; 83605; 83880; 84484; 85025; 85610; 85730; 87040; 94761

== ENCOUNTER 2020-04-23 11:19 | Inpatient (IN) | payer BC, MEDICARE ==
[~2020-04-23] VITALS: Ht 193 cm; Wt 128.0 kg
[2020-04-23] VITALS (26 sets, daily range): BP systolic 84–120; BP diastolic 56–85
[~2020-04-23 11:19] MED LIST changes: -CARI-277 PO
[2020-04-23 12:03] LABS: Basophils # (auto) 0 10 ^3/uL (0-0.2); Basophils % (auto) 0.1 % (0.0-2.0); Eosinophils # (auto) 0 10 ^3/uL (0-0.8); Eosinophils % (auto) 0.1 % (0.0-7.0); Hemoglobin 11.1 g/dL (13.5-17.5); Lymphocytes # (auto) 0.5 10 ^3/uL (0.4-5.4); Monocytes # (auto) 0.7 10 ^3/uL (0-1.3); Neutrophils # (auto) 3.8 10 ^3/uL (1.6-8.6)
[2020-04-23 12:05] LABS: Hematocrit 36.9 % (41.0-53.0); Lymphocytes % (auto) 10.5 % (10.0-50.0); Mean Corpuscular Hemoglobin 26.5 pg (28.0-32.0); Mean Corpuscular Hgb Conc. 30.1 g/dL (32.0-36.0); Mean Corpuscular Volume 88.2 fL (80.0-100.0); Monocytes % (auto) 13.6 % (0.0-12.0); Neutrophils % (auto) 75.7 % (37.0-80.0); Nucleated Red Blood Cells % 0.4 %; Platelet Count (auto) 197 10^3/uL (140-450); Red Blood Cells 4.18 10^6/uL (4.5-5.90); Red Cell Distribution Width 16.9 % (11.8-14.3)
[2020-04-23 12:12] LABS: Urine Bacteria FEW /hpf (None Seen); Urine Blood Negative /uL (Negative); Urine Mucus FEW (None Seen); Urine Specific Gravity 1.016 (1.001-1.035); Urine WBC 2 /hpf (0 - 3)
[2020-04-23] MEDS ORDERED: MIDAZOLAM HCL 5 MG/ML-1ML VIAL IV ONE (13:00)
[2020-04-23] MEDS ORDERED: AZITHROMYCIN 500MG/ 250ML 250 ML IV ONE (13:00)
[2020-04-23] MEDS: MIDAZOLAM DRIP 50 mg/50mL 50 ML IV SCH ×4 (13:40→21:16)
[2020-04-23] MEDS ORDERED: PROPOFOL 100 ML IV ONE (13:53)
[2020-04-23] MEDS ORDERED: FUROSEMIDE INJECTION 100 MG in SODIUM CHL 0.9% 100 ML IV ONE (14:15)
[2020-04-23] MEDS ORDERED: NITROGLYCERIN 0.4 MG SL TAB SL PRN (14:15)
[2020-04-23] MEDS ORDERED: MORPHINE SULF INJ 2 MG/ML SYRINGE 1ML IV PRN (14:15)
[2020-04-23] MEDS: PROPOFOL 100 ML IV SCH ×2 (14:17→23:25)
[2020-04-23] MEDS ORDERED: DEXTROSE (50%) 50ML SYRG IV PRN (14:30)
[2020-04-23] MEDS: PREGABALIN 25 MG CAP PO SCH ×2 (15:00→22:23)
[2020-04-23 15:24] LABS: INR 1.01 (0.9-1.15)
[2020-04-23 15:37] LABS: Blood Urea Nitrogen 19 mg/dL (7-18); Chloride 96 mmol/L (98-107); GFR African American 96 mL/min; GFR Non-African American 80 mL/min; Glucose 195 mg/dL (74-106); Potassium 4.2 mmol/L (3.5-5.1); Sodium 142 mmol/L (136-145)
[2020-04-23 15:38] LABS: Alanine Aminotransferase 16 U/L (16-61); Albumin 3.1 g/dL (3.4-5.0); Alkaline Phosphatase 47 U/L (45-117); Aspartate Aminotransferase 5 U/L (15-37); Bilirubin, Total 0.2 mg/dL (0.2-1.0); Calcium 9.1 mg/dL (8.5-10.1); Total Protein 5.7 g/dL (6.4-8.2)
[2020-04-23] MEDS ORDERED: ROCURONIUM 10MG/ML 10ML VIAL IV ONE ×3 (15:43→22:49)
[2020-04-23 15:48] LABS: Partial Thromboplastin Time 19.9 sec (23.64-32.05)
[2020-04-23 15:52] LABS: Anion Gap 0 (5-15)
[2020-04-23 15:55] LABS: Magnesium 2.6 mg/dL (1.6-2.6)
[2020-04-23 15:58] LABS: Carbon Dioxide 46 mmol/L (21-32)
[2020-04-23] MEDS: InsuLIN REG 1unit/0.01ml Soln (100units/ml) SC SCH ×2 (17:00→22:40)
[2020-04-23] MEDS: ACCU-CHEK COMFORT CURVE STRIP VI SCH ×2 (17:12→22:37)
--- NOTE | 2020-04-23 18:40 | NUR ---
RECEIVED FROM ER Patient received from ER.
[2020-04-23] MEDS: LEVALBUTEROL HCL 1.25 MG/3 ML NEB NEB SCH (19:09)
[2020-04-23] MEDS: FUROSEMIDE INJECTION 100 MG in D5W 5% 100 ML IV SCH (19:52)
[2020-04-23] MEDS ORDERED: fentaNYL Drip 2500mCg/250mlNS 250 ML IV SCH (20:53)
--- NOTE | 2020-04-23 21:00 | NUR ---
CONSENT CONSENT FOR THORACENTESIS TAKEN FROM PATIENT'S BLAS ORDERED BY . MICHELLE BLEDSOE WITNESSED.
[2020-04-23] MEDS: fentaNYL Drip 2500mCg/250mlNS 250 ML IV SCH (21:13)
[2020-04-23] MEDS ORDERED: DOPamine 1600MCG/ML D5W 250 ML IV ONE (21:38)
--- NOTE | 2020-04-23 21:45 | NUR ---
CALLED ONCALL PHARMACIST FOR MEDS CELLCEPT AND PROGRAF. MIGUEL SAID THAT HE WILL COME AND DELIVER MEDS.
[2020-04-23] MEDS: DOPamine 1600MCG/ML D5W 250 ML IV SCH (21:47)
[2020-04-23] MEDS ORDERED: MYCOPHENOLATE 500 MG TAB PO SCH (22:00)
[2020-04-23] MEDS: HYDROcodone-ACET 10/325MG TAB PO SCH (22:00)
[2020-04-23] MEDS: methylPREDNISolone SOD SUCC 40 MG/ML VL IV SCH (22:23)
[2020-04-23] MEDS: POTASSIUM EFFERVESENT TAB 25 MEQ GT SCH (22:24)
[2020-04-23] MEDS: MEROPENEM 500MG IVPB 50 ML IV SCH (22:24)
--- NOTE | 2020-04-23 22:57 | NUR ---
ROCURONIUM ROCURONIUM 50 MG IV PUSH GIVEN. PATIENT IS SEDATED DEEPLY BUT STILL RESPIRATORY RATE IS BETWEEN 16-18. WANTS PATIENT'S RESP.RATE 12( VENT RESP.RATE 12) DUE TO ABNORMAL ABG. Addendum: 04/24/20 at 0744 by rEic Bermudez RN ERROR ON CHARTING ROCURONIUM ROCURONIUM 50 MG IV PUSH GIVEN. PATIENT IS SEDATED MODERATELY BUT STILL RESPIRATORY RATE IS BETWEEN 16-18. WANTS PATIENT'S RESP.RATE 12( VENT RESP.RATE 12) DUE TO ABNORMAL ABG
[2020-04-23] MEDS ORDERED: MYCOPHENOLATE PO ONE (23:00)
[2020-04-23] MEDS: ROCURONIUM 10MG/ML 10ML VIAL IV SCH (23:00)
--- NOTE | 2020-04-23 23:00 | NUR ---
PHARMACIST PER PHARMACIST MIGUEL, IT IS OKAY TO OPEN PROGRAF CAPSULE AND GIVE THROUGH OGT/NGT.
[2020-04-23] MEDS: TACROLIMUS 1 MG CAP PO SCH (23:32)
[2020-04-24] VITALS (104 sets, daily range): BP systolic 85–113; BP diastolic 43–76
[2020-04-24] MEDS: LEVALBUTEROL HCL 1.25 MG/3 ML NEB NEB SCH ×4 (00:10→18:17)
[2020-04-24] MEDS: FUROSEMIDE INJECTION 100 MG in D5W 5% 100 ML IV SCH ×5 (00:44→17:00)
[2020-04-24] MEDS: MIDAZOLAM DRIP 50 mg/50mL 50 ML IV SCH ×5 (01:28→17:02)
[2020-04-24] MEDS: PROPOFOL 100 ML IV SCH ×6 (01:53→17:31)
[2020-04-24] MEDS: PREGABALIN 25 MG CAP PO SCH ×3 (05:57→21:58)
[2020-04-24] MEDS: methylPREDNISolone SOD SUCC 40 MG/ML VL IV SCH ×3 (05:57→21:54)
[2020-04-24] MEDS: ROCURONIUM 10MG/ML 10ML VIAL IV SCH (05:59)
[2020-04-24] MEDS: ACCU-CHEK COMFORT CURVE STRIP VI SCH ×4 (06:30→21:59)
[2020-04-24] MEDS: InsuLIN REG 1unit/0.01ml Soln (100units/ml) SC SCH ×4 (06:30→22:24)
[2020-04-24 06:37] LABS: Basophils # (auto) 0 10 ^3/uL (0-0.2); Eosinophils # (auto) 0 10 ^3/uL (0-0.8); Lymphocytes # (auto) 0.3 10 ^3/uL (0.4-5.4); Mean Corpuscular Hemoglobin 26.9 pg (28.0-32.0); Monocytes # (auto) 0.2 10 ^3/uL (0-1.3); Neutrophils # (auto) 6.1 10 ^3/uL (1.6-8.6); Nucleated Red Blood Cells % 0.3 %; White Blood Cell 6.7 10^3/uL (4.4-10.8)
[2020-04-24 06:39] LABS: Hematocrit 38.7 % (41.0-53.0); Hemoglobin 12.2 g/dL (13.5-17.5); Mean Corpuscular Hgb Conc. 31.6 g/dL (32.0-36.0); Mean Corpuscular Volume 85.1 fL (80.0-100.0); Monocytes % (auto) 3.4 % (0.0-12.0); Neutrophils % (auto) 91.6 % (37.0-80.0); Platelet Count (auto) 190 10^3/uL (140-450); Red Blood Cells 4.55 10^6/uL (4.5-5.90); Red Cell Distribution Width 16.6 % (11.8-14.3)
[2020-04-24 06:56] LABS: Potassium 3.3 mmol/L (3.5-5.1)
[2020-04-24 07:01] LABS: Albumin 3.2 g/dL (3.4-5.0); BUN/Creatinine Ratio 16.9; Bilirubin, Total 0.8 mg/dL (0.2-1.0); Calcium 9.7 mg/dL (8.5-10.1)
--- NOTE | 2020-04-24 07:12 | NUR ---
REPORT RECEIVED FROM CITY PLANNING TEACHER RN
[2020-04-24] MEDS: DOPamine 1600MCG/ML D5W 250 ML IV SCH ×2 (07:37→17:32)
--- NOTE | 2020-04-24 08:05 | NUR ---
FAMILY UPDATED ON PATIENT STATUS. ALL QUESTIONS AND CONCERNS ADDRESSED AT THIS TIME
[2020-04-24] MEDS: fentaNYL Drip 2500mCg/250mlNS 250 ML IV SCH ×2 (08:07→21:25)
[2020-04-24] MEDS: POTASSIUM CHL 20MEQ/100ML 100 ML IV SCH ×2 (08:41→10:05)
--- NOTE | 2020-04-24 09:00 | NUR ---
SEDATION VACATION HELD AT THIS TIME Addendum: 04/24/20 at 0955 by Jim Roberto RN Amended: Links added.
[2020-04-24] MEDS: MEROPENEM 500MG IVPB 50 ML IV SCH (09:32)
[2020-04-24] MEDS: POTASSIUM EFFERVESENT TAB 25 MEQ GT SCH ×2 (09:32→21:59)
[2020-04-24] MEDS: FINASTERIDE 5 MG TAB PO SCH (09:33)
[2020-04-24] MEDS: TACROLIMUS 1 MG CAP PO SCH ×2 (09:34→22:14)
[2020-04-24] MEDS: TAMSULOSIN HYDROCHLORIDE 0.4 MG CAP PO SCH ×2 (09:34→22:09)
[2020-04-24] MEDS: HYDROcodone-ACET 10/325MG TAB PO SCH ×2 (09:34→22:00)
[2020-04-24] MEDS: OMEPRAZOLE 20MG/10ML ORAL SUSP PO SCH (09:34)
[2020-04-24] MEDS ORDERED: MYCOPHENOLATE PO SCH (10:00)
[2020-04-24] MEDS ORDERED: ROCURONIUM 10MG/ML 10ML VIAL IV PRN (11:00)
--- NOTE | 2020-04-24 12:44 | NUR ---
ULTRASOUND AT BEDSIDE
[2020-04-24] MEDS ORDERED: MEROPENEM 500MG IVPB 50 ML IV ONE (14:00)
--- NOTE | 2020-04-24 14:34 | NUR ---
PARTIAL LINEN CHANGE PERFORMED AT THIS TIME
[2020-04-24] MEDS ORDERED: DEXTROSE (50%) 50ML SYRG IV PRN (17:00)
--- NOTE | 2020-04-24 17:58 | NUR ---
ORAL CARE PERFORMED PATIENT TOLERATED WELL
--- NOTE | 2020-04-24 19:00 | NUR ---
Opening notes Assumed care, laying on bed with his eyes closed, on vent, AC mode, sedation with propofol, fentanyl and versed, see IV spreadsheet for titration, dopamine @ 5 mcg/min infusing in the left IJ, OGT in place, rascon catheter draining to a clear urine, SCDs on bilateral lower extremities. Bed in lowest position with side rails up, bed alarm on. Will continue care.
--- NOTE | 2020-04-24 21:22 | NUR ---
Received a call from , Colleen, updated on pt's status and POC, all questions and concerns were addressed, verbalized understanding.
[2020-04-24] MEDS: MEROPENEM 1GM IVPB 100 ML IV SCH (21:53)
[2020-04-24] MEDS: MYCOPHENOLATE PO SCH (22:08)
[2020-04-25] VITALS (104 sets, daily range): BP systolic 76–157; BP diastolic 45–92
[2020-04-25] MEDS: LEVALBUTEROL HCL 1.25 MG/3 ML NEB NEB SCH ×4 (00:49→18:34)
--- NOTE | 2020-04-25 04:00 | NUR ---
Patient bathe/linen change Patient given complete bath. Skin integrity assessed for any changes. Linens and gown changed. Patient repositioned for comfort.
[2020-04-25 04:28] LABS: Basophils # (auto) 0 10 ^3/uL (0-0.2); Basophils % (auto) 0.1 % (0.0-2.0); Eosinophils # (auto) 0 10 ^3/uL (0-0.8); Lymphocytes # (auto) 0.3 10 ^3/uL (0.4-5.4); Neutrophils # (auto) 14.3 10 ^3/uL (1.6-8.6); White Blood Cell 15.3 10^3/uL (4.4-10.8)
[2020-04-25 04:31] LABS: Hematocrit 37.6 % (41.0-53.0); Lymphocytes % (auto) 2.1 % (10.0-50.0); Mean Corpuscular Hemoglobin 26.6 pg (28.0-32.0); Mean Corpuscular Volume 83.2 fL (80.0-100.0); Monocytes # (auto) 0.6 10 ^3/uL (0-1.3); Monocytes % (auto) 4.1 % (0.0-12.0); Neutrophils % (auto) 93.7 % (37.0-80.0); Nucleated Red Blood Cells % 0.1 %; Platelet Count (auto) 249 10^3/uL (140-450); Red Blood Cells 4.52 10^6/uL (4.5-5.90)
[2020-04-25 04:46] LABS: Albumin 2.9 g/dL (3.4-5.0); Potassium 3.3 mmol/L (3.5-5.1)
[2020-04-25 04:50] LABS: BUN/Creatinine Ratio 23.5; Bilirubin, Total 0.6 mg/dL (0.2-1.0); Total Protein 5.7 g/dL (6.4-8.2)
[2020-04-25] MEDS: MEROPENEM 1GM IVPB 100 ML IV SCH ×3 (06:00→21:38)
[2020-04-25] MEDS: DOPamine 1600MCG/ML D5W 250 ML IV SCH ×2 (06:07→18:30)
[2020-04-25] MEDS: ACCU-CHEK COMFORT CURVE STRIP VI SCH ×4 (06:15→21:58)
[2020-04-25] MEDS: methylPREDNISolone SOD SUCC 40 MG/ML VL IV SCH ×3 (06:15→20:54)
[2020-04-25] MEDS: PREGABALIN 25 MG CAP PO SCH ×3 (06:36→20:58)
[2020-04-25] MEDS: InsuLIN REG 1unit/0.01ml Soln (100units/ml) SC SCH ×4 (06:49→22:00)
[2020-04-25] MEDS: FUROSEMIDE INJECTION 100 MG in D5W 5% 100 ML IV SCH (08:38)
--- NOTE | 2020-04-25 09:40 | NUR ---
DR. LIZAMA ROUNDING ON PT HE ASKED WHY IS PT NOT ON CPAP TRIAL YET. I TOLD HIM PHYSICIAN SURGEON HAD PT OFF SEDATION AND HE STARTED HAVING A LOT OF HAND TREMORS AND RN HAD TO PUT HIM BACK ON FENTANYL GTT AND I STARTED WEANING HIM OFF FENTANYL GTT SLOWLY AGAIN FOR CPAP TRIAL.
--- NOTE | 2020-04-25 09:53 | NUR ---
I CALLED PT'S BLAS TO ASK HER ABOUT PT'S HAND TREMORS, SHE STATES PT HAS BEEN HAVING THEM FOR APPROXIMATELY A MONTH AND A HALF. THAT HE HAS FORGOTTEN TO MENTION IT TO DR. MARCUS DUE TO ALL HIS OTHER HEALTH ISSUES. I INFORMED PT'S , THAT I'LL PROCEED WEANING OFF SEDATION AND WITH CPAP TRIAL PER DR. LIZAMA ORDERS WITH CAUTION AND WILL KEEP DR. MARCUS INFORMED. PT'S VERBALIZED UNDERSTANDING OF POC.
[2020-04-25] MEDS: OMEPRAZOLE 20MG/10ML ORAL SUSP PO SCH (10:42)
[2020-04-25] MEDS: POTASSIUM EFFERVESENT TAB 25 MEQ GT SCH (10:43)
[2020-04-25] MEDS: HYDROcodone-ACET 10/325MG TAB PO SCH ×2 (10:43→20:58)
[2020-04-25] MEDS: TACROLIMUS 1 MG CAP PO SCH ×2 (10:44→20:59)
[2020-04-25] MEDS: FINASTERIDE 5 MG TAB PO SCH (10:44)
[2020-04-25] MEDS: MYCOPHENOLATE PO SCH ×2 (10:48→20:58)
[2020-04-25] MEDS ORDERED: ALBUMIN 5% 250 ML IV ONE (11:45)
[2020-04-25] MEDS ORDERED: LINEZOLID 600MG/300ML 300 ML IV ONE (12:00)
--- NOTE | 2020-04-25 12:04 | NUR ---
FAILED CPAP TRIAL DR MARCUS AT BEDSIDE WITH RN, ORDERING TO TURN OFF FENTANYL AND CONTINUE WITH CPAP TRIAL. PT AROUSABLE WITH STIMULATION, BITING AND CHEWING ON ETT, HOLISTER WITH BITE BLOCK GUARD PLACED. PT ABLE TO WAKE AND FOLLOW COMMANDS BUT EASILY FALLS BACK ASLEEP. ATTEMPTED CPAP TRIAL, PT WITH INCREASED RR 42-44, LOW VT 92-173, INCREASED ETCO2 59, WITH O2 DESATURATION TO 87%. PLACED BACK ON AC MODE ON PREVIOUS ORDERED SETTINGS. RN PREPARING PRECEDEX DRIP. WILL ATTEMPT CPAP TRIAL AGAIN LATER. WILL CONTINUE TO MONITOR.
--- NOTE | 2020-04-25 12:54 | NUR ---
Estimated energy needs 0676-0156 kcal (14-18 kcal/kg BW 124kg) Est protein needs 74-99g (0.6-0.8g/kg BW 124kg r/t YONG no HD) Will reassess prn. If EN support indicated consider Nepro @ 40 mL/hr per MD approval until YONG resolves Addendum: 04/25/20 at [address] Amended: Links added.
[2020-04-25] MEDS: DexMEDEtomidine 400 MCG in D5W 5% 96 ML IV SCH (13:00)
--- NOTE | 2020-04-25 13:15 | NUR ---
DR. MARCUS ROUNDVICTOR HUGO ON PT. HE WANTS PT TO BE EXTUBATED TODAY. HE WANTS HIM TO BE PLACED ON CPAP. I TOLD HIM THAT HE HAD TO BEPLACED BACK ON FENTANYL TWICE D/T INCREASED HAND TREMORS AND IRRITABILITY, THAT I WAS ABOUT TO CALL DR. LIZAMA TO REQUEST FOR PRECEDEX TO HELP TO KEEP PT CALM DURING CPAP TRIAL SINCE HE KEPT ON CHEWING ON ETT . HE GAVE ME THE ORDER TO START PRECEDEX GTT.
--- NOTE | 2020-04-25 14:17 | NUR ---
FAILED SECOND ATTEMPT CPAP TRIAL Attempted another CPAP trial, pt with increased RR 40-42 and low VT 160-170, with O2 desat to 89%. Changed back to AC mode on previous ordered settings. Alarms verified and audible. Will notify RN, and will continue to monitor.
--- NOTE | 2020-04-25 16:04 | NUR ---
PT'S CALLED TO GET AN UPDATE ON PT'S CONDITION I UPDATED HER ON PT'S CONDITION. CPAP TRIAL, ANXIETY, DECREASE TV, INCREASED RR, LOW SPO2. PRECEDEX TRIAL. PT NOW BEEN ASLEEP. NOW WAITING FOR HIM TO WAKE UP AND FOLLOW COMMANDS FOR CPAP TRIAL. I TOLD HER PT'S CARE IS BEEN CORRELATED WITH BOTH PRIMARY MD AND ICT PROGRAMMER ALL PARAMETERS ARE BEING CLOSELY MONITORED.
--- NOTE | 2020-04-25 19:00 | NUR ---
Opening shift note: Primary RN Wing received report on patient. Pt intubated ETT tube 8/24cm @ LL, VENT settings: AC12/TV450/FIO2 30%, PEEP 5, O2 SAT 97%, bilateral lung sounds clear but diminished. Central line left IJ triple lumen, infusing precedex and dopamine. OG tube clamped, placement checked. Dodson catheter draining via gravity with yellow urine. Safety precautions in place. Will continue to monitor.
[2020-04-25] MEDS: LINEZOLID 600MG/300ML 300 ML IV SCH (20:32)
[2020-04-25] MEDS: TAMSULOSIN HYDROCHLORIDE 0.4 MG CAP PO SCH (20:57)
--- NOTE | 2020-04-25 21:02 | NUR ---
called, password verified. RN updated on patient condition and plan of care.
--- NOTE | 2020-04-25 22:55 | NUR ---
Both IV's to right hand D/C'd d/t infiltration. Patient tolerated intervention well with no s/s of discomfort or distress. Catheters fully intact.
[2020-04-26] VITALS (83 sets, daily range): BP systolic 89–147; BP diastolic 57–104
[2020-04-26] MEDS: LEVALBUTEROL HCL 1.25 MG/3 ML NEB NEB SCH ×4 (00:15→17:44)
--- NOTE | 2020-04-26 00:18 | NUR ---
IV to left hand D/C'd d/t infiltration. Patient tolerated intervention well with no s/s of discomfort or distress. Catheter fully intact.
[2020-04-26] MEDS: DexMEDEtomidine 400 MCG in D5W 5% 96 ML IV SCH ×2 (02:05→20:05)
[2020-04-26] MEDS: DOPamine 1600MCG/ML D5W 250 ML IV SCH ×2 (05:05→16:09)
[2020-04-26] MEDS: MEROPENEM 1GM IVPB 100 ML IV SCH ×3 (05:43→21:44)
[2020-04-26] MEDS: methylPREDNISolone SOD SUCC 40 MG/ML VL IV SCH ×2 (05:44→21:44)
[2020-04-26] MEDS: PREGABALIN 25 MG CAP PO SCH ×3 (05:44→21:45)
[2020-04-26] MEDS: ACCU-CHEK COMFORT CURVE STRIP VI SCH ×4 (05:52→21:46)
[2020-04-26] MEDS: InsuLIN REG 1unit/0.01ml Soln (100units/ml) SC SCH ×4 (05:54→21:47)
--- NOTE | 2020-04-26 06:24 | NUR ---
INITIATED CPAP TRIAL Pt is awake and alert, following commands. Initiated CPAP trial as ordered. HR 119, RR 21, SPO2 93%. Alarms set and audible. Pt tolerating well, pt denying any SOB, no s/s of respiratory distress. Noc shift RN made aware of changes. Weaning parameters and ABG to follow. Will continue to monitor.
--- NOTE | 2020-04-26 07:40 | NUR ---
AM ASSESSMENT COMPLETED. REMAINS INTUBATED. FOLLOWS COMMANDS, CURRENTLY ON PRECEDEX AT 0.1 MCG/HR. REAGAN, VERY ALERT WATCHING TV. REMOVED MITTENS OUT OF HANDS, FIND THEM UNNECESSARY. EDUCATED ON POC. PT SEEMS EXCITED ABOUT GETTING ETT OUT THIS AM. PT REMAINS ON DOPAMINE AT 2.5 MCG/KG/MIN FOR BP SUPPORT. AFEBRILE. ALL MONITOR ALARMS VERIFIED.
--- NOTE | 2020-04-26 07:59 | NUR ---
Called Dr. Reeder with update on CPAP trial, ABG results and weaning parameters. Orders received to extubate to cool mist aerosol. Will notify
--- NOTE | 2020-04-26 08:30 | NUR ---
PT EXTUBATED BY RT BUZZ PLACED ON CM 40%, NO STRIDOR, LS CTA, DIMINISHED ON THE BASES, SPO2 96%. PT REAGAN, A+O X4 VOICE A LITTLE RASPY. PT SITTING UP WATCHING TV. PT HAS BEEN AWAKE UP ALL NIGHT ON PRECEDEX AT 0.1 MCG/HR FOLLOWING COMMANDS ALL NIGHT LONG. PT REMAINS ON DOPAMINE AT 2.5 MCG/KG /MIN TO MAINTAIN SBP ABOVE 90.
--- NOTE | 2020-04-26 08:30 | NUR ---
EXTUBATED PT Extubated as ordered with RN at bedside. Placed on cool mist aerosol mask FIO2 40%. HR 116, RR 20, SPO2 95%. No stridor noted, pt with strong productive cough. Pt resting comfortably in bed, no s/s of respiratory distress noted.
--- NOTE | 2020-04-26 09:03 | NUR ---
UPDATED PT'S BLAS THAT PT IS EXTUBATED, PT'S WOULD COME TO THE HOSPITAL TO BRING PT'S GLASSES AND HEARING AID AND CELL-PHONE WITH ELECTRICAL ENGINEERING TECHNICIAN. PT'S VERY EXCITED WITH THE UPDATE.
[2020-04-26] MEDS: LINEZOLID 600MG/300ML 300 ML IV SCH ×2 (09:32→20:45)
[2020-04-26] MEDS: OMEPRAZOLE 20MG/10ML ORAL SUSP PO SCH (10:45)
[2020-04-26] MEDS: MYCOPHENOLATE PO SCH ×2 (10:46→21:44)
[2020-04-26] MEDS: TAMSULOSIN HYDROCHLORIDE 0.4 MG CAP PO SCH (10:46)
[2020-04-26] MEDS: TACROLIMUS 1 MG CAP PO SCH ×2 (10:47→21:45)
[2020-04-26] MEDS: HYDROcodone-ACET 10/325MG TAB PO SCH ×2 (10:49→21:45)
[2020-04-26] MEDS: FINASTERIDE 5 MG TAB PO SCH (10:49)
[2020-04-26] MEDS: MIDAZOLAM DRIP 50 mg/50mL 50 ML IV SCH (13:00)
[2020-04-26] MEDS: PROPOFOL 100 ML IV SCH (13:54)
--- NOTE | 2020-04-26 19:00 | NUR ---
Opening Shift Note Assumed care of patient, awake and alert. No S/S of distress/SOB or pain. Instructed on POC and to call for assist PRN, will continue to monitor for changes Q1hr and PRN.
--- NOTE | 2020-04-26 19:30 | NUR ---
Dr. Lao paged: Patient complaining of stomach upset and patient informed RN he takes daily anti-diarrhea medication at home and his stomach is upset how he usually feels it at home. Dr. Lao returned page immediately and new orders received and verified.
[2020-04-26] MEDS ORDERED: DIPHENOXYLATE W/ATROPINE 2.5 MG TAB PO PRN (19:45)
[2020-04-26] MEDS: fentaNYL Drip 2500mCg/250mlNS 250 ML IV SCH (20:06)
[2020-04-26] MEDS: DIPHENOXYLATE W/ATROPINE 2.5 MG TAB PO PRN (20:34)
[2020-04-27] VITALS (16 sets, daily range): BP systolic 118–131; BP diastolic 67–88
[2020-04-27] MEDS: LEVALBUTEROL HCL 1.25 MG/3 ML NEB NEB SCH ×4 (00:30→18:54)
--- NOTE | 2020-04-27 03:11 | NUR ---
Bath: Patient refused bath. Patient states, "No, im okay right now". Patient remains comfortable and in no s/s of discomfort or distress.
[2020-04-27] MEDS: DOPamine 1600MCG/ML D5W 250 ML IV SCH (03:13)
[2020-04-27 04:06] LABS: Basophils # (auto) 0 10 ^3/uL (0-0.2); Eosinophils # (auto) 0 10 ^3/uL (0-0.8); Hemoglobin 11.2 g/dL (13.5-17.5); Lymphocytes # (auto) 0.2 10 ^3/uL (0.4-5.4); Monocytes # (auto) 0.3 10 ^3/uL (0-1.3); Monocytes % (auto) 2.3 % (0.0-12.0)
[2020-04-27 04:08] LABS: Hematocrit 35.4 % (41.0-53.0); Lymphocytes % (auto) 1.6 % (10.0-50.0); Mean Corpuscular Hemoglobin 26.5 pg (28.0-32.0); Mean Corpuscular Hgb Conc. 31.6 g/dL (32.0-36.0); Mean Corpuscular Volume 83.6 fL (80.0-100.0); Neutrophils # (auto) 11.9 10 ^3/uL (1.6-8.6); Neutrophils % (auto) 96.1 % (37.0-80.0); Platelet Count (auto) 173 10^3/uL (140-450); Red Blood Cells 4.24 10^6/uL (4.5-5.90); Red Cell Distribution Width 17.1 % (11.8-14.3); White Blood Cell 12.4 10^3/uL (4.4-10.8)
[2020-04-27 04:56] LABS: BUN/Creatinine Ratio 35.3; Calcium 8.8 mg/dL (8.5-10.1); Potassium 3.5 mmol/L (3.5-5.1)
--- NOTE | 2020-04-27 05:27 | NUR ---
AM blood sugar check: Patient verbalized to RN that he wanted his blood sugar checked now rather than 0700.
[2020-04-27] MEDS: PREGABALIN 25 MG CAP PO SCH ×3 (05:33→22:09)
[2020-04-27] MEDS: MEROPENEM 1GM IVPB 100 ML IV SCH ×3 (05:33→22:07)
[2020-04-27] MEDS: ACCU-CHEK COMFORT CURVE STRIP VI SCH ×4 (05:33→22:13)
[2020-04-27] MEDS: InsuLIN REG 1unit/0.01ml Soln (100units/ml) SC SCH ×4 (05:35→22:18)
--- NOTE | 2020-04-27 07:52 | NUR ---
Downgrade orders noted by Md. Georgebanana ripening room supervisor paged to notify.
--- NOTE | 2020-04-27 08:02 | NUR ---
Patient to be transferred to [facility] due to bed availability at this time. Report to be given at bedside.
--- NOTE | 2020-04-27 08:12 | NUR ---
[facility]. REPORT GIVEN. UPDATED ON PLAN OF CARE. PATIENT TO BE TRANSFERRED VIA BED WITH TELE # [id number].
--- NOTE | 2020-04-27 08:44 | NUR ---
PATIENT TRANSFERRED VIA BED ON PORTABLE O2 AND TELE MONITOR. ARRIVED TO ROOM, NURSE AWARE. NO DISTRESS NOTED. ALL BELONGINGS WITH PATIENT. CALL LIGHT AT REACH, BED ALARM ON. TRAY AT BEDSIDE.
--- NOTE | 2020-04-27 08:50 | NUR ---
Transfer from ICU Assumed care of patient, awake and alert. Respirations are even and unlabored. No S/S of distress/SOB or pain. Bed is low, locked with 2x side rails up. Call light is within reach. Instructed on POC and to call for assist PRN, will continue to monitor for changes Q1hr and PRN.
[2020-04-27] MEDS: methylPREDNISolone SOD SUCC 40 MG/ML VL IV SCH (09:09)
[2020-04-27] MEDS: FINASTERIDE 5 MG TAB PO SCH (09:10)
[2020-04-27] MEDS: HYDROcodone-ACET 10/325MG TAB PO SCH ×2 (09:10→20:22)
[2020-04-27] MEDS: LINEZOLID 600MG/300ML 300 ML IV SCH ×2 (09:11→20:21)
[2020-04-27] MEDS: TAMSULOSIN HYDROCHLORIDE 0.4 MG CAP PO SCH (09:17)
[2020-04-27] MEDS: MYCOPHENOLATE PO SCH ×2 (10:04→22:09)
[2020-04-27] MEDS: TACROLIMUS 1 MG CAP PO SCH ×2 (10:04→22:10)
[2020-04-27] MEDS ORDERED: AMLO5TAB15 PO (11:08)
[2020-04-27] MEDS ORDERED: LISI2.5T47 PO (11:08)
[2020-04-27] MEDS ORDERED: TRIA0.25 PO (11:10)
--- NOTE | 2020-04-27 12:02 | NUR ---
Nutrition Follow-up Wt.: 123.5 kg Pt`s successfully extubated tx to floor sleeping with no family by bedside. pt is now advanced to CCHO 60 gm 2 gm na fine chop diet with no PO recorded yet Estimated energy needs 2182-1918 kcal (14-18 kcal/kg BW 124kg) Est protein needs 74-99g (0.6-0.8g/kg BW 124kg r/t YONG no HD) Will reassess prn. Labs: BUN 59 H, CREAT 1.67 H, CO2 40 H, GLU 256 H, ALB 2.9 L. GI: pt had 1 BM today per RN doc Skin: Pt had 15 mod risk Refer to WC notes for details PES: 1) Inadequate oral intake aeb pt is intubated and sedated with no alt nutrition r/t current medical condition 2) Altered nutrition related labs aeb elevated RFTs r/t current medical condition Recommendations: 1) consider CCHO 60g and Renal Specific 80g protein diet if RFT continue to be elev. 2) consider Glucerna 1 carton bid if PO is low. 3) continue assistance with meals. 3) f/u 2-3 days
--- NOTE | 2020-04-27 15:22 | NUR ---
PT REQUESTED THAT P.T. EVALUATION BE DONE TOMORROW.
--- NOTE | 2020-04-27 17:52 | NUR ---
Rascon catheter dc'd Order to discontinue rascon catheter. Rascon dc'd with clean technique following deflation of balloon. Patient tolerated well with no complaints of pain. Provided patient with urinal. Bed is low, locked with 2x side rails up. Call light is within reach. Will continue to monitor.
[2020-04-27] MEDS ORDERED: ZOLP10TA PO (20:27)
--- NOTE | 2020-04-27 20:34 | NUR ---
VOID PATIENT VOIDED 200ML CLEAR YELLOW URINE VIA URINAL.
--- NOTE | 2020-04-27 20:34 | NUR ---
PATIENT IS AWAKE AND ALERT X4. CONNECTED PATIENT TO SCD MACHINE, BLE. TRIPLE LUMEN IJ TO LEFT SIDE NOTED, SALINE FLUSHED. DRESSING IS C/D/I. PATIENT IS SELF SUCTIONING VIA YANKAUER AT BEDSIDE, SMALL AMOUNT OF YELLOW TO CLEAR SPUTUM NOTED IN SUCTION CONTAINER. PATIENT ON O2 AT 4LNC WITH NO S/S OF DISTRESS NOTED. CALL LIGHT WITHIN REACH.
[2020-04-27] MEDS ORDERED: ZOLPIDEM TARTRATE 5 MG TAB PO ONE (21:45)
[2020-04-28] MEDS: LEVALBUTEROL HCL 1.25 MG/3 ML NEB NEB SCH ×4 (00:02→19:57)
[2020-04-28 05:00] VITALS: BP 133/77
[2020-04-28] MEDS: PREGABALIN 25 MG CAP PO SCH ×3 (06:07→21:59)
[2020-04-28] MEDS: ACCU-CHEK COMFORT CURVE STRIP VI SCH ×4 (06:07→22:00)
[2020-04-28] MEDS: InsuLIN REG 1unit/0.01ml Soln (100units/ml) SC SCH ×4 (06:30→22:01)
[2020-04-28] MEDS: MEROPENEM 1GM IVPB 100 ML IV SCH ×3 (06:38→22:41)
--- NOTE | 2020-04-28 07:20 | NUR ---
Opening Shift Note Assumed care of patient, alert and oriented x4. Respirations are even and unlabored. No S/S of distress/SOB or pain. Bed is low, locked with 2x side rails up. Call light is within reach. Instructed on POC and to call for assist PRN, will continue to monitor for changes Q1hr and PRN.
[2020-04-28 09:00] VITALS: BP 128/81
[2020-04-28] MEDS: TAMSULOSIN HYDROCHLORIDE 0.4 MG CAP PO SCH (09:23)
[2020-04-28] MEDS: FINASTERIDE 5 MG TAB PO SCH (09:23)
[2020-04-28] MEDS: LINEZOLID 600MG/300ML 300 ML IV SCH ×2 (09:23→20:30)
[2020-04-28] MEDS: PANTOPRAZOLE 40 MG TAB PO SCH (09:23)
[2020-04-28] MEDS: HYDROcodone-ACET 10/325MG TAB PO SCH ×2 (09:23→22:00)
[2020-04-28] MEDS: MYCOPHENOLATE PO SCH ×2 (09:24→21:59)
[2020-04-28] MEDS: TACROLIMUS 1 MG CAP PO SCH ×2 (09:24→22:00)
[2020-04-28] MEDS: predniSONE 20 MG TAB PO SCH (09:24)
[2020-04-28 13:00] VITALS: BP 108/62
--- NOTE | 2020-04-28 13:30 | NUR ---
PT REQUESTED THAT P.T. EVALUATION BE DONE LATER.
--- NOTE | 2020-04-28 13:39 | NUR ---
assessment Patient is a 64 year old male who is alert and oriented. Patients cognitive abilities are intact. Prior to admission patient lived home with family and functioned independently. Patient informed me he is able to care for his own ADLs. Per patient he will return home to his prior living arrangements post discharge and family will transport him home. Patient informed me he was re-admitted for shortness of breath. Patient informed me his PCP is Dr Lao. Patient informed me he is on service with [employer]. Patient will need a resumption order on discharge to include physical therapy. Patient feels safe returning home on discharge. Patient has a fww, 02, and bi pap for home use. I informed patient he has a right to speak to a social work coordinator regarding all care. I informed patient he has a right to participate in any and all discharge planning. Patient has a POA and advanced directive. Patient verbalized understanding and agreed to discharge plan. Addendum: 04/28/20 at 1341 by Claudia HARRIS Amended: Links added.
--- NOTE | 2020-04-28 13:52 | NUR ---
charting error at 1329, wrong pt. chart.
[2020-04-28 17:00] VITALS: BP 122/77
--- NOTE | 2020-04-28 19:40 | NUR ---
Opening Shift Note Assumed care of patient, awake and alert. No S/S of distress/SOB or pain. Instructed on POC and to call for assist PRN. Bed in lowest locked position, call light within reach, side rails up x2, fall precautions in place. Will continue to monitor for changes Q1hr and PRN.
[2020-04-28 22:12] VITALS: BP 126/81
[2020-04-29] MEDS: LEVALBUTEROL HCL 1.25 MG/3 ML NEB NEB SCH ×6 (00:32→23:58)
[2020-04-29] MEDS: PRILOCAINE TOP PRN ×2 (04:51→16:46)
[2020-04-29] MEDS: LIDOCAINE 2.5% TOP PRN ×2 (04:51→16:46)
[2020-04-29 05:12] VITALS: BP 114/62
[2020-04-29] MEDS: MEROPENEM 1GM IVPB 100 ML IV SCH ×3 (06:27→22:28)
[2020-04-29] MEDS: PREGABALIN 25 MG CAP PO SCH ×3 (06:27→22:29)
[2020-04-29] MEDS: InsuLIN REG 1unit/0.01ml Soln (100units/ml) SC SCH ×4 (06:27→22:28)
[2020-04-29] MEDS: ACCU-CHEK COMFORT CURVE STRIP VI SCH ×4 (06:27→22:28)
--- NOTE | 2020-04-29 07:00 | NUR ---
Opening Shift Note Received report on the patient. Awake lying in bed. Discussed the plan of care with the patient. Patient shows no signs of distress at this time. Bed in lowest position, side rails up x2, and the call light is within reach.
[2020-04-29 08:30] VITALS: BP 114/62
[2020-04-29 09:00] VITALS: BP 133/86
[2020-04-29] MEDS: LINEZOLID 600MG/300ML 300 ML IV SCH ×2 (09:00→20:18)
[2020-04-29] MEDS: TAMSULOSIN HYDROCHLORIDE 0.4 MG CAP PO SCH (10:43)
[2020-04-29] MEDS: predniSONE 20 MG TAB PO SCH (10:43)
[2020-04-29] MEDS: HYDROcodone-ACET 10/325MG TAB PO SCH ×2 (10:44→22:38)
[2020-04-29] MEDS: PANTOPRAZOLE 40 MG TAB PO SCH (10:44)
[2020-04-29] MEDS: FINASTERIDE 5 MG TAB PO SCH (10:44)
[2020-04-29] MEDS: TACROLIMUS 1 MG CAP PO SCH ×2 (10:46→22:29)
[2020-04-29] MEDS: MYCOPHENOLATE PO SCH ×2 (10:46→22:29)
[2020-04-29 13:00] VITALS: BP 121/70
[2020-04-29] MEDS ORDERED: ACETYLCYSTEINE 20%(200MG/ML) SOL 4ML NEB SCH (14:00)
[2020-04-29 17:00] VITALS: BP 128/76
[2020-04-29] MEDS: Glucerna Carbsteady SHAKE Chocolate 8oz PO SCH (17:22)
[2020-04-29] MEDS ORDERED: Ensure Enlive Vanilla 8oz Bottle PO SCH (18:00)
[2020-04-29] MEDS: ACETYLCYSTEINE 20%(200MG/ML) SOL 4ML NEB SCH ×2 (19:00→23:58)
--- NOTE | 2020-04-29 19:04 | NUR ---
RT NOTE PT WAS SEEN BY RT FOR HHN TX. PT TOLERATES WELL VIA MOUTHPIECE. NO ADVERSE REACTION NOTED. PT HAS A NOTED NONPRODUCTIVE COUGH. CONT ORDERED Addendum: 04/29/20 at 1905 by Gretel Ledesma RT Amended: Links added.
--- NOTE | 2020-04-29 19:35 | NUR ---
Opening Shift Note Assumed care of patient, awake and alert x4. No S/S of distress/SOB or pain. Call light is within reach, side rails up x2, bed is in the lowest position. Instructed on POC and to call for assist PRN, will continue to monitor for changes Q1hr and PRN.
[2020-04-29 21:00] VITALS: BP 125/74
--- NOTE | 2020-04-29 23:04 | NUR ---
Paged Dr. Lao, patient is requesting Ambien 10 mg stating he takes it at home to help him sleep.
--- NOTE | 2020-04-29 23:13 | NUR ---
Dr. Lao called back, new order received for Ambien 10 mg PO one time.
[2020-04-29] MEDS ORDERED: ZOLPIDEM TARTRATE 5 MG TAB PO ONE (23:15)
--- NOTE | 2020-04-29 23:30 | NUR ---
Left IJ Central Line Dressing Change Central line dressing change done with a sterile technique. Cleansed with chloraprep scrub/betadine. Bio-patch and occlusive dressing applied. New hubs applied and each line flushes easily. Patient tolerated well.
--- NOTE | 2020-04-30 00:20 | NUR ---
RT NOTE PY WAS SEEN BY RT FOR HHN TX. PT TOLERATES WELL VIA MOUTHPIECE. NO ADVERSE REACTION NOTED. CONT ORDERED Addendum: 04/30/20 at 0040 by Gretel Ledesma RT Amended: Links added.
[2020-04-30 05:00] VITALS: BP 132/89
[2020-04-30] MEDS: InsuLIN REG 1unit/0.01ml Soln (100units/ml) SC SCH ×4 (06:16→23:46)
[2020-04-30] MEDS: MEROPENEM 1GM IVPB 100 ML IV SCH ×3 (06:16→23:23)
[2020-04-30] MEDS: PREGABALIN 25 MG CAP PO SCH ×3 (06:16→23:24)
[2020-04-30] MEDS: ACCU-CHEK COMFORT CURVE STRIP VI SCH ×4 (06:16→23:25)
[2020-04-30] MEDS: LEVALBUTEROL HCL 1.25 MG/3 ML NEB NEB SCH ×3 (06:28→18:38)
[2020-04-30] MEDS: ACETYLCYSTEINE 20%(200MG/ML) SOL 4ML NEB SCH ×3 (06:28→18:39)
[2020-04-30] MEDS: Glucerna Carbsteady SHAKE Chocolate 8oz PO SCH ×3 (08:11→17:40)
[2020-04-30] MEDS: LINEZOLID 600MG/300ML 300 ML IV SCH ×2 (08:11→20:44)
[2020-04-30 09:00] VITALS: BP 105/63
[2020-04-30] MEDS: predniSONE 20 MG TAB PO SCH (10:42)
[2020-04-30] MEDS: MYCOPHENOLATE PO SCH ×2 (10:42→23:24)
[2020-04-30] MEDS: TAMSULOSIN HYDROCHLORIDE 0.4 MG CAP PO SCH (10:42)
[2020-04-30] MEDS: HYDROcodone-ACET 10/325MG TAB PO SCH ×2 (10:44→23:24)
[2020-04-30] MEDS: TACROLIMUS 1 MG CAP PO SCH ×2 (10:44→23:24)
[2020-04-30] MEDS: FINASTERIDE 5 MG TAB PO SCH (10:44)
[2020-04-30] MEDS: PANTOPRAZOLE 40 MG TAB PO SCH (10:45)
[2020-04-30 13:00] VITALS: BP 118/82
--- NOTE | 2020-04-30 16:02 | NUR ---
Nutrition Follow-up Wt.: 128.6 kg Pt`s successfully extubated tx to floor sleeping with no family by bedside. pt is now advanced to CCHO 60 gm 2 gm na fine chop diet. Pt intake is adequate aeb pt intake of 75-100% per RN doc x 4 days Estimated energy needs 6162-4369 kcal (14-18 kcal/kg BW 124kg) Est protein needs 74-99g (0.6-0.8g/kg BW 124kg r/t YONG no HD) Will reassess prn. Labs: BUN 59 H, CREAT 1.67 H, CO2 40 H, GLU 129 H, ALB 2.9 L. GI: pt had 2 BM today per RN doc Skin: BS 22 low risk Refer to WC notes for details PES: Resolved: Pt diet advanced to oral and pt with adequate intake x 4 days aeb RN doc of 75-100% po. 1) Inadequate oral intake aeb pt is intubated and sedated with no alt nutrition r/t current medical condition 2) Altered nutrition related labs aeb elevated RFTs r/t current medical condition Recommendations: 1) consider CCHO 60g and Renal Specific 80g protein diet if RFT continue to be elev. 2) consider Glucerna 1 carton bid if PO is low. 3) continue assistance with meals. 3) f/u 3-5 days
[2020-04-30 17:00] VITALS: BP 123/73
--- NOTE | 2020-04-30 19:45 | NUR ---
Opening Shift Note Assumed care of patient, awake and alert. No S/S of distress/SOB or pain. Patient on bedside commode at this time, will assist back to bed when patient is finished. Bed in lowest locked position, side rails up x2, call light within reach. Instructed on POC and to call for assist PRN, will continue to monitor for changes Q1hr and PRN.
[2020-04-30 21:00] VITALS: BP 138/85
[2020-05-01] MEDS: ACETYLCYSTEINE 20%(200MG/ML) SOL 4ML NEB SCH ×4 (00:11→19:17)
[2020-05-01] MEDS: LEVALBUTEROL HCL 1.25 MG/3 ML NEB NEB SCH ×4 (00:11→19:17)
--- NOTE | 2020-05-01 01:10 | NUR ---
Paged Dr. Lao, patient is requesting home medication Ambien 10 mg daily at hour of sleep. Previous orders noted to be discontinued, previous doses one time dose only. Patient made aware. Awaiting call back at this time.
[2020-05-01 04:30] VITALS: BP 128/72
[2020-05-01] MEDS: MEROPENEM 1GM IVPB 100 ML IV SCH ×3 (06:38→22:33)
[2020-05-01] MEDS: ACCU-CHEK COMFORT CURVE STRIP VI SCH ×4 (06:38→22:35)
[2020-05-01] MEDS: PREGABALIN 25 MG CAP PO SCH ×3 (06:38→22:34)
[2020-05-01] MEDS: InsuLIN REG 1unit/0.01ml Soln (100units/ml) SC SCH ×4 (06:58→22:30)
[2020-05-01] MEDS: Glucerna Carbsteady SHAKE Chocolate 8oz PO SCH ×3 (07:58→18:00)
[2020-05-01 08:00] VITALS: BP 138/86
[2020-05-01] MEDS: predniSONE 20 MG TAB PO SCH (10:11)
[2020-05-01] MEDS: HYDROcodone-ACET 10/325MG TAB PO SCH ×2 (10:12→22:34)
[2020-05-01] MEDS: TAMSULOSIN HYDROCHLORIDE 0.4 MG CAP PO SCH (10:12)
[2020-05-01] MEDS: FINASTERIDE 5 MG TAB PO SCH (10:13)
[2020-05-01] MEDS: PANTOPRAZOLE 40 MG TAB PO SCH (10:14)
[2020-05-01] MEDS: LINEZOLID 600MG/300ML 300 ML IV SCH ×2 (10:15→19:45)
[2020-05-01] MEDS: MYCOPHENOLATE PO SCH ×2 (10:19→22:33)
[2020-05-01] MEDS: TACROLIMUS 1 MG CAP PO SCH ×2 (10:19→22:34)
[2020-05-01] MEDS: DIPHENOXYLATE W/ATROPINE 2.5 MG TAB PO PRN (10:58)
[2020-05-01 11:18] LABS: Basophils # (auto) 0 10 ^3/uL (0-0.2); Hemoglobin 11.6 g/dL (13.5-17.5); Lymphocytes # (auto) 1.1 10 ^3/uL (0.4-5.4)
[2020-05-01 11:20] LABS: Eosinophils # (auto) 0.1 10 ^3/uL (0-0.8); Eosinophils % (auto) 0.7 % (0.0-7.0); Hematocrit 36.3 % (41.0-53.0); Lymphocytes % (auto) 11.6 % (10.0-50.0); Mean Corpuscular Hemoglobin 27.1 pg (28.0-32.0); Mean Corpuscular Hgb Conc. 31.9 g/dL (32.0-36.0); Mean Corpuscular Volume 84.9 fL (80.0-100.0); Monocytes # (auto) 1.1 10 ^3/uL (0-1.3); Monocytes % (auto) 11.7 % (0.0-12.0); Neutrophils # (auto) 6.9 10 ^3/uL (1.6-8.6); Platelet Count (auto) 205 10^3/uL (140-450); Red Blood Cells 4.27 10^6/uL (4.5-5.90); Red Cell Distribution Width 16.5 % (11.8-14.3); White Blood Cell 9.1 10^3/uL (4.4-10.8)
[2020-05-01 11:39] LABS: Albumin 3.4 g/dL (3.4-5.0); Calcium 9.2 mg/dL (8.5-10.1); Potassium 4.7 mmol/L (3.5-5.1)
[2020-05-01 11:43] LABS: BUN/Creatinine Ratio 16.8; Bilirubin, Total 0.5 mg/dL (0.2-1.0); Total Protein 5.9 g/dL (6.4-8.2)
--- NOTE | 2020-05-01 11:58 | NUR ---
Closing Note Patient lying in bed, awake and alert. No s/s of distress. Bed in lowest locked position, side rails up x2, call light within reach. Care endorsed to Antonette BLEDSOE for continuation of care.
[2020-05-01 12:00] VITALS: BP 131/81
--- NOTE | 2020-05-01 12:15 | NUR ---
Opening Shift Note Assumed care of patient, awake, alert, and oriented. No S/S of distress/SOB or pain. Bed in lowest/locked position, bed rails up x2, call light within reach. Instructed on POC and to call for assist PRN. Will continue to monitor for changes Q1hr and PRN.
--- NOTE | 2020-05-01 12:15 | NUR ---
REPORT REPORT RECEIVED FROM LADI COHEN. ALL QUESTIONS/CONCERNS ADDRESSED.
[2020-05-01 17:00] VITALS: BP 138/90
--- NOTE | 2020-05-01 19:35 | NUR ---
OPENING NOTE Received report from day shift RN. Patient is A&O X's 4 with no s/s of distress and reports no pain. Educated patient on POC and to use call light when in need of assistance. Patient verbalized understanding. Bed is in lowest/locked position with side rails up X's 2 and call light is within reach of patient. Bed alarm is set for safety. Will continue care.
[2020-05-01 22:00] VITALS: BP 140/81
--- NOTE | 2020-05-01 22:55 | NUR ---
spoke with MD MARCUS Orders obtained for sleeping medication as patient requested. Will continue care
[2020-05-01] MEDS: ZOLPIDEM TARTRATE 5 MG TAB PO PRN (23:11)
--- NOTE | 2020-05-01 23:49 | NUR ---
PAIN REASSESSMENT patient states he is more comfortable and pain has gone down to 5-6
[2020-05-02] VITALS (7 sets, daily range): BP systolic 110–194; BP diastolic 74–89
[2020-05-02] MEDS: ACETYLCYSTEINE 20%(200MG/ML) SOL 4ML NEB SCH ×4 (00:23→18:16)
[2020-05-02] MEDS: LEVALBUTEROL HCL 1.25 MG/3 ML NEB NEB SCH ×4 (00:24→18:16)
--- NOTE | 2020-05-02 00:29 | NUR ---
Respiratory note: AT BEDSIDE FOR MED [place] BERRY.
[2020-05-02] MEDS: PREGABALIN 25 MG CAP PO SCH ×3 (06:18→22:35)
[2020-05-02] MEDS: MEROPENEM 1GM IVPB 100 ML IV SCH ×2 (06:18→14:12)
[2020-05-02] MEDS: InsuLIN REG 1unit/0.01ml Soln (100units/ml) SC SCH ×4 (06:24→22:44)
[2020-05-02] MEDS: ACCU-CHEK COMFORT CURVE STRIP VI SCH ×4 (06:24→22:45)
[2020-05-02] MEDS: LINEZOLID 600MG/300ML 300 ML IV SCH ×2 (07:58→19:29)
[2020-05-02] MEDS: Glucerna Carbsteady SHAKE Chocolate 8oz PO SCH ×3 (08:00→18:00)
--- NOTE | 2020-05-02 08:00 | NUR ---
RECEIVED PATIENT ALERT AND ORIENTED X4, NOT IN DISTRESS, CLEAR LUNG SOUNDS IN BILATERAL UPPER AND DIMINISHED IN LOWER LUNG LOBES, RR=18, SAT=94%, DEEP BREATHING AND COUGHING WAS ENCOURAGED, DEMONSTRATED AND VERBALIZED UNDERSTANDING, DENIED SOB AND CHEST PAIN, HEAT R=96 SR ON TELE MONITOR, ABDOMEN SOFT WITH ACTIVE BS, LAST BM=05/01/20 REPORTED, REDNESS ON SACRUM NOTED, KEEP CLEAN AND DRY, GENERAL SKIN INTACT WARM TO TOUCH, RADIAL AND PEDAL PULSES PALPABLE, CAP REFILL <3 SECONDS, RESTING ON BED, HEAD OF BED ELEVATED, BED ON LOW POSITION, RAILS UP X2, CALL LIGHT ON REACH, PENDING SS CONSULT, WILL CONTINUE MONITORING.
--- NOTE | 2020-05-02 10:00 | NUR ---
Out of bed to bed side commode, large dark brown sot bm noted, back to the bed, resting on bed and talking on the phone at this moment.
--- NOTE | 2020-05-02 10:15 | NUR ---
PT WAS JUST OUT OF BED. PT REQUESTS THAT P.T. BE DONE LATER.
[2020-05-02] MEDS: predniSONE 20 MG TAB PO SCH (10:35)
[2020-05-02] MEDS: FINASTERIDE 5 MG TAB PO SCH (10:35)
[2020-05-02] MEDS: TAMSULOSIN HYDROCHLORIDE 0.4 MG CAP PO SCH ×2 (10:36→10:40)
[2020-05-02] MEDS: HYDROcodone-ACET 10/325MG TAB PO SCH ×2 (10:36→22:36)
[2020-05-02] MEDS: PANTOPRAZOLE 40 MG TAB PO SCH (10:36)
[2020-05-02] MEDS: MYCOPHENOLATE PO SCH ×2 (10:39→22:34)
[2020-05-02] MEDS: TACROLIMUS 1 MG CAP PO SCH ×2 (10:41→22:35)
[2020-05-02] MEDS ORDERED: FUROSEMIDE 40 MG/4 ML VIAL IV ONE (15:30)
--- NOTE | 2020-05-02 18:10 | NUR ---
Not in distress, tolerated breakfast and lunch tray 100%, tolerating bed commode well large soft black colored BM noted, back to the bed, resting and socializing with on the phone, will continue monitoring.
--- NOTE | 2020-05-02 19:07 | NUR ---
Sitting on bed, eating dinner, not in distress, report was given to the maintenance technician 3rd shift RN.
[2020-05-02] MEDS: ZOLPIDEM TARTRATE 5 MG TAB PO PRN (23:12)
[2020-05-03] MEDS: LEVALBUTEROL HCL 1.25 MG/3 ML NEB NEB SCH ×4 (00:40→18:47)
[2020-05-03] MEDS: ACETYLCYSTEINE 20%(200MG/ML) SOL 4ML NEB SCH ×4 (00:40→18:47)
[2020-05-03 05:00] VITALS: BP 147/90
[2020-05-03] MEDS: InsuLIN REG 1unit/0.01ml Soln (100units/ml) SC SCH ×4 (06:23→21:51)
[2020-05-03] MEDS: ACCU-CHEK COMFORT CURVE STRIP VI SCH ×4 (06:25→21:56)
[2020-05-03] MEDS: PREGABALIN 25 MG CAP PO SCH ×3 (06:25→21:54)
[2020-05-03] MEDS: LINEZOLID 600MG/300ML 300 ML IV SCH ×2 (07:28→20:27)
[2020-05-03] MEDS: DIPHENOXYLATE W/ATROPINE 2.5 MG TAB PO PRN (07:28)
[2020-05-03] MEDS: Glucerna Carbsteady SHAKE Chocolate 8oz PO SCH ×3 (08:00→18:00)
--- NOTE | 2020-05-03 08:00 | NUR ---
RECEIVED PATIENT ALERT AND ORIENTED X4, NOT IN DISTRESS, CLEAR LUNG SOUNDS IN BILATERAL UPPER AND DIMINISHED IN LOWER LUNG LOBES, RR=18, SAT=93%, DEEP BREATHING AND COUGHING WAS ENCOURAGED, DEMONSTRATED AND VERBALIZED UNDERSTANDING, DENIED SOB AND CHEST PAIN, HEAT R=112 S TACH ON TELE MONITOR, ABDOMEN SOFT WITH ACTIVE BS, LAST BM=THIS MORNING REPORTED, SACRUM KEEP CLEAN AND DRY, GENERAL SKIN INTACT WARM TO TOUCH, RADIAL AND PEDAL PULSES PALPABLE, CAP REFILL <3 SECONDS, RESTING ON BED, HEAD OF BED ELEVATED, BED ON LOW POSITION, RAILS UP X2, CALL LIGHT ON REACH, WILL CONTINUE MONITORING.
[2020-05-03 09:00] VITALS: BP 130/87
[2020-05-03] MEDS: predniSONE 20 MG TAB PO SCH (09:52)
[2020-05-03] MEDS: HYDROcodone-ACET 10/325MG TAB PO SCH ×2 (09:52→21:55)
[2020-05-03] MEDS: FINASTERIDE 5 MG TAB PO SCH (09:53)
[2020-05-03] MEDS: PANTOPRAZOLE 40 MG TAB PO SCH (09:53)
[2020-05-03] MEDS: TACROLIMUS 1 MG CAP PO SCH ×2 (09:59→21:56)
[2020-05-03] MEDS: MYCOPHENOLATE PO SCH ×2 (10:01→21:54)
--- NOTE | 2020-05-03 12:01 | NUR ---
OUT OF BED WITH PT, AMBULATED USING WALKER AROUND THE UNIT X2, TOLERATED WELL, SITTING ON BED AND DANGLING, SOCIALIZING WITH BED #1, WILL CONTINUE MONITORING.
--- NOTE | 2020-05-03 12:21 | NUR ---
Nutrition Follow-up Wt.: 128.6 kg Pt`s successfully extubated sleeping with no family by bedside. pt is now advanced to CCHO 60 gm 2 gm na fine chop diet with adequate PO of 100% x 4 per RN doc along with Glucerna 1 carton tid Estimated energy needs 5050-1266 kcal (14-18 kcal/kg BW 124kg) Est protein needs 74-99g (0.6-0.8g/kg BW 124kg r/t YONG no HD) Will reassess prn. Labs: BUN 39 H, GLU 183 H GI: pt had 1 BM 05/02 per RN doc Skin: BS 22 low risk Refer to WC notes for details PES: 1) resolved: Inadequate oral intake aeb pt is intubated and sedated with no alt nutrition r/t current medical condition 2) Altered nutrition related labs aeb elevated RFTs r/t current medical condition Recommendations: 1) consider CCHO 60g and Renal Specific 80g protein diet if RFT continue to be elev. 2) consider to D/C Glucerna if PO continues to be adequate. 3) continue assistance with meals. 4) f/u 3-5 days
[2020-05-03 13:00] VITALS: BP 133/92
[2020-05-03 17:00] VITALS: BP 139/86
--- NOTE | 2020-05-03 19:49 | NUR ---
Resting on bed, eating dinner, not in distress, report was given to the police shift commander RN.
[2020-05-03 22:00] VITALS: BP 125/75
[2020-05-03] MEDS: ZOLPIDEM TARTRATE 5 MG TAB PO PRN (22:49)
[2020-05-04] MEDS: LEVALBUTEROL HCL 1.25 MG/3 ML NEB NEB SCH ×5 (01:14→23:55)
[2020-05-04] MEDS: ACETYLCYSTEINE 20%(200MG/ML) SOL 4ML NEB SCH ×5 (01:14→23:55)
[2020-05-04 05:54] VITALS: BP 129/74
[2020-05-04] MEDS: PREGABALIN 25 MG CAP PO SCH ×3 (06:16→22:43)
[2020-05-04] MEDS: InsuLIN REG 1unit/0.01ml Soln (100units/ml) SC SCH ×4 (06:16→22:46)
[2020-05-04] MEDS: ACCU-CHEK COMFORT CURVE STRIP VI SCH ×4 (06:19→22:44)
[2020-05-04] MEDS: Glucerna Carbsteady SHAKE Chocolate 8oz PO SCH ×3 (08:34→17:35)
[2020-05-04 09:00] VITALS: BP 129/86
[2020-05-04] MEDS: LINEZOLID 600MG/300ML 300 ML IV SCH ×2 (09:06→19:55)
[2020-05-04] MEDS: HYDROcodone-ACET 10/325MG TAB PO SCH ×2 (10:02→22:44)
[2020-05-04] MEDS: predniSONE 20 MG TAB PO SCH (10:02)
[2020-05-04] MEDS: TAMSULOSIN HYDROCHLORIDE 0.4 MG CAP PO SCH (10:02)
[2020-05-04] MEDS: PANTOPRAZOLE 40 MG TAB PO SCH (10:02)
[2020-05-04] MEDS: FINASTERIDE 5 MG TAB PO SCH (10:02)
[2020-05-04] MEDS: MYCOPHENOLATE PO SCH ×2 (10:05→22:43)
[2020-05-04] MEDS: TACROLIMUS 1 MG CAP PO SCH ×2 (10:05→22:44)
[2020-05-04 13:00] VITALS: BP 113/85
[2020-05-04 17:00] VITALS: BP 125/88
[2020-05-04 22:00] VITALS: BP 128/82
[2020-05-05 05:00] VITALS: BP 114/71
[2020-05-05] MEDS: PREGABALIN 25 MG CAP PO SCH (05:57)
[2020-05-05] MEDS: LEVALBUTEROL HCL 1.25 MG/3 ML NEB NEB SCH ×2 (06:10→11:14)
[2020-05-05] MEDS: ACETYLCYSTEINE 20%(200MG/ML) SOL 4ML NEB SCH ×2 (06:10→11:14)
[2020-05-05] MEDS: InsuLIN REG 1unit/0.01ml Soln (100units/ml) SC SCH ×2 (06:39→12:30)
[2020-05-05] MEDS: ACCU-CHEK COMFORT CURVE STRIP VI SCH ×2 (06:40→12:29)
[2020-05-05 08:44] VITALS: BP 126/78
[2020-05-05 08:52] VITALS: BP 126/78
[2020-05-05] MEDS: Glucerna Carbsteady SHAKE Chocolate 8oz PO SCH ×2 (09:01→12:16)
[2020-05-05] MEDS: LINEZOLID 600MG/300ML 300 ML IV SCH (09:08)
[2020-05-05] MEDS: predniSONE 20 MG TAB PO SCH (09:38)
[2020-05-05] MEDS: TACROLIMUS 1 MG CAP PO SCH (09:38)
[2020-05-05] MEDS: PANTOPRAZOLE 40 MG TAB PO SCH (09:38)
[2020-05-05] MEDS: FINASTERIDE 5 MG TAB PO SCH (09:38)
[2020-05-05] MEDS: MYCOPHENOLATE PO SCH (09:38)
[2020-05-05] MEDS: TAMSULOSIN HYDROCHLORIDE 0.4 MG CAP PO SCH (09:39)
[2020-05-05] MEDS ORDERED: HYDROcodone-ACET 10/325MG TAB PO ONE (10:00)
[2020-05-05] MEDS ORDERED: FUROSEMIDE 20 MG/2 ML VIAL IV ONE (12:30)
[2020-05-05 12:40] VITALS: BP 138/78
[2020-05-05 12:54] LABS: Basophils # (auto) 0 10 ^3/uL (0-0.2); Eosinophils # (auto) 0 10 ^3/uL (0-0.8); Eosinophils % (auto) 0.1 % (0.0-7.0); Lymphocytes # (auto) 0.5 10 ^3/uL (0.4-5.4); Mean Corpuscular Hemoglobin 26.5 pg (28.0-32.0); Mean Corpuscular Hgb Conc. 31.3 g/dL (32.0-36.0); Monocytes # (auto) 0.2 10 ^3/uL (0-1.3); Monocytes % (auto) 1.9 % (0.0-12.0)
[2020-05-05 12:58] LABS: Hematocrit 37.2 % (41.0-53.0); Hemoglobin 11.6 g/dL (13.5-17.5); Lymphocytes % (auto) 4.4 % (10.0-50.0); Mean Corpuscular Volume 84.7 fL (80.0-100.0); Neutrophils # (auto) 10.3 10 ^3/uL (1.6-8.6); Neutrophils % (auto) 93.6 % (37.0-80.0); Platelet Count (auto) 197 10^3/uL (140-450); Red Cell Distribution Width 16.5 % (11.8-14.3)
[2020-05-05 13:16] LABS: Potassium 4.8 mmol/L (3.5-5.1)
[2020-05-05 13:24] LABS: Albumin 3.4 g/dL (3.4-5.0); BUN/Creatinine Ratio 13.6; Bilirubin, Total 0.5 mg/dL (0.2-1.0); Calcium 9.2 mg/dL (8.5-10.1); Total Protein 6.1 g/dL (6.4-8.2)
[2020-05-05 15:10] VITALS: BP 138/78
--- NOTE | 2020-05-05 15:32 | NUR ---
Discharge instructions given as ordered. Encourage to follow up with PMD as instructed. All questions and concerns addressed. Patient verbalized understanding. Medication reconciliation form completed and copy given to patient. Home medications held in Pharmacy returned to patient. IV removed with catheter intact, pressure dressing applied. Telemetry unit returned to ICU. Patient taken to vehicle via wheelchair with all personal belongings, accompanied by staff and family member. No distress noted at time of departure.
== END 2020-05-05 15:23 | disposition home or self-care (01) | DRG 208 ==
LOC: ER 11:19 → EDBD 11:19 → TELE 11:20 → ICU WEST 18:38 → TELE-CENTR 04-27 08:35
PROVIDERS: ADMIT Internal Medicine Cardiovascular Disease; ATTEND Internal Medicine Cardiovascular Disease
PROC: 5A1945Z Respiratory Ventilation, 24-96 Consecutive Hours (ICD-10-PCS; principal; 2020-04-23)
PROC: 0BH17EZ Insertion of Endotracheal Airway into Trachea, Via Natural or Artificial Opening (ICD-10-PCS; 2020-04-23)
PROC: 02HV33Z Insertion of Infusion Device into Superior Vena Cava, Percutaneous Approach (ICD-10-PCS; 2020-04-23)
PROC: B548ZZA Ultrasonography of Superior Vena Cava, Guidance (ICD-10-PCS; 2020-04-23)
PROC: B5181ZA Fluoroscopy of Superior Vena Cava using Low Osmolar Contrast, Guidance (ICD-10-PCS; 2020-04-23)
DX: J96.01 Acute respiratory failure with hypoxia (principal); J18.9 Pneumonia, unspecified organism; J45.901 Unspecified asthma with (acute) exacerbation; J44.0 Chronic obstructive pulmonary disease with (acute) lower respiratory infection; J44.1 Chronic obstructive pulmonary disease with (acute) exacerbation; J90 Pleural effusion, not elsewhere classified; N17.9 Acute kidney failure, unspecified; I50.32 Chronic diastolic (congestive) heart failure; Z94.1 Heart transplant status; J96.02 Acute respiratory failure with hypercapnia; N18.9 Chronic kidney disease, unspecified; E11.22 Type 2 diabetes mellitus with diabetic chronic kidney disease; E78.5 Hyperlipidemia, unspecified; D64.9 Anemia, unspecified; E87.6 Hypokalemia; G47.30 Sleep apnea, unspecified; Z82.49 Family history of ischemic heart disease and other diseases of the circulatory system; Z83.3 Family history of diabetes mellitus; F41.9 Anxiety disorder, unspecified; Z20.828 Contact with and (suspected) exposure to other viral communicable diseases
CPT/HCPCS: 31500; 36415; 36600; 71045; 76604; 80048; 80053; 81001; 82565; 82728; 82805; 82962; 83605; 83735; 83880; 84484; 85025; 85610; 85730; 87040; 87070; 87081; 87205; 87804; 87880; 93005; 94002; 94003; 94640; 97163; 97530; 99291; A4565; G0378; J1815; J2185; J2250; J2704; J3480; J7060; J7507; J7517

== ENCOUNTER → 2020-05-19 | Outpatient (CLI) | payer BC ==
[~2020-05-19] MED LIST changes: +AMLO5TAB15 PO; +LISI2.5T47 PO; -PRE5T PO; +TRIA0.25 PO; +ZOLP10TA PO
== END | disposition home or self-care (01) ==
LOC: Rad HDHVI 08:05
PROVIDERS: ATTEND Internal Medicine Cardiovascular Disease
DX: I10 Essential (primary) hypertension (principal); J44.9 Chronic obstructive pulmonary disease, unspecified; Z94.1 Heart transplant status
CPT/HCPCS: 93306